=== PATIENT | male | born 1940 | race Caucasian/White ===

== ENCOUNTER 2016-05-19 13:32 | Emergency (ER) | payer MEDICARE, OTHER ==
[~2016-05-19 13:32] MED LIST: Sodium Chloride 0.9% 1,000 ML BAG ONE
[2016-05-19 14:24] LABS: Bilirubin Negative (Negative); Blood, Urine Negative (Negative); Clarity Clear (Clear); Glucose, Urine (Dipstick) Negative (Negative); Leukocyte Negative (Negative); Nitrite Negative (Negative); Protein, Urine (Dipstick) Negative (Neg-Trace); RBC/HPF None Seen HPF (0-3); Urobilinogen 0.2 mg/dL (0.2-1.0); WBC/HPF None Seen HPF (0-3); pH, Urine 5.5 (5.0-9.0)
--- NOTE | 2016-05-19 14:27 | RAD ---
CHEST 2 VIEWS: HISTORY: Cough. FINDINGS: Heart size is borderline. There is linear change in the right base which appears to represent scar. There is no focal infiltrative process noted. IMPRESSION: Borderline heart size. Linear change in the right mid lung field probably on the basis of scar. POS: [facility]
[2016-05-19 14:55] LABS: ALT (SGPT) 37 U/L (0-55); AST (SGOT) 30 U/L (5-34); Albumin 4.2 g/dL (3.4-4.8); Alkaline Phosphatase 57 U/L (40-150); Amylase 41 U/L (20-160); Anion Gap 16 mmol/L (10-20); BUN (Urea Nitrogen) 24 mg/dL (8.4-25.7); Bilirubin, Total 0.6 mg/dL (0.2-1.2); Calc. Creatinine Clearance 0 mL/min (70-130); Calcium 9.5 mg/dL (7.8-10.44); Carbon Dioxide 23 mmol/L (23-31); Chloride 100 mmol/L (98-107); Estimated GFR-MDRD 40; Glucose 63 mg/dL (83-110); Lipase 16 U/L (8-78); Potassium 4.4 mmol/L (3.5-5.1); Protein, Total 7.2 g/dL (5.8-8.1); Sodium 135 mmol/L (136-145)
[2016-05-19 15:03] LABS: Anisocytosis SLIGHT = 6-15 cells (100X) (0-5/hpf); Band 6 % (5-11); Eosinophils 6 % (0-10); Hemoglobin 15.6 g/dL (14.0-18.0); Lymphocytes 33 % (21-51); MDiff Complete? YES; Mean Corpuscular HGB CONC 33.1 g/dL (32.0-36.0); Mean Corpuscular Hemoglobin 31.8 pg (27.0-31.0); Mean Corpuscular Volume 96.2 fl (80.0-94.0); Mean Platelet Volume 10.3 fL (7.4-10.4); Monocytes 1 % (0-10); Neutrophil 50 % (42-75); PLT Morphology Comment Appears Adequate; Platelet Count 177 thou/uL (130-400); RBC Distribution Width 11.8 % (11.5-14.5); Reactive Lymphocytes 4 % (0-10); Red Blood Cell (RBC) Count 4.91 mill/uL (4.70-6.10); Vacuoles SLIGHT; White Blood Cell (WBC) Count 10.1 thou/uL (4.8-10.8)
[2016-05-19] MEDS ORDERED: AMOXicillin 250 MG CAP ONE (17:00)
[2016-05-19] MEDS ORDERED: Diphenoxylate HCl/Atropine Tablet ONE (17:00)
[2016-05-19] MEDS ORDERED: Benzonatate 100 MG CAP ONE (17:00)
--- NOTE | 2016-05-19 17:04 | ERRECORD ---
[facility] EMERGENCY RECORD HPI GENERAL (14:35 LLDO) CHIEF COMPLAINT: Patient presents for evaluation of vague and somewhat confusing history. diarrhea for 3 days but none today. epigastric burning. was taking Mylanta, which helped, but stopped taking it because it seemed to "turn on him" so he stopped and the epigastric pain is returning. has nasty cough for 2 weeks and now having right lat and post rib pain with cough. says he has a hx diverticulitis and thinks his pain might be that, but he has no lower abdo pain at all. not sure about any fever in past few days. says he mosty feels very weak and dry now, and the weakness and possible dehydration are what brought him in. HISTORIAN: History provided by patient. MECHANISM OF INJURY: Unknown mechanism, Mechanism of injury is unknown, Mechanism of injury: APPEARS INFECTIOUS, No alcohol use associated with this incident, No drug use associated with this incident, No domestic violence associated with this incident. QUALITY: Pain is dull in nature, described as aching. SEVERITY: Maximum severity of symptoms moderate, Currently symptoms are mild. TIME COURSE: Gradual onset of symptoms, Symptoms are worsening, are intermittent. ASSOCIATED WITH: No associated symptoms. EXACERBATED BY: Patient's condition exacerbated by nothing. RELIEVED BY: Patient's condition relieved by nothing. ROS CONSTITUTIONAL: Historian reports fatigue, reports malaise, reports weakness. (14:41 LLDO) EYES: Negative eye review of systems, Historian denies eye pain, denies eye redness, denies eye discharge. (14:47 LLDO) ENT: SEE HPI...DRY MOUTH. (14:41 LLDO) CARDIOVASCULAR: Negative cardiovascular review of systems, Historian denies chest pain, no radiation, Historian denies diaphoresis, denies paroxysmal nocturnal dyspnea, denies syncope. (14:47 LLDO) RESPIRATORY: Negative respiratory review of systems, Historian denies cough, denies shortness of breath, denies sputum. (14:47 LLDO) GI: Historian reports abdominal pain, denies anorexia, denies appetite changes, denies constipation, reports diarrhea, denies hematemesis, denies hematochezia, denies jaundice, denies melena, reports nausea, denies stool changes, reports vomiting. (14:41 LLDO) GENITOURINARY MALE: chronic nocturia d.t. enlarged prostrate. (14:41 LLDO) MUSCULOSKELETAL: Negative musculoskeletal review of systems, Historian denies arthralgias, denies fall, denies injury, denies myalgias. (14:47 LLDO) NEUROLOGIC: Negative neurologic review of systems, Historian &a-1R&a+25V*p+0X*[id number]*c202B*c15G*c2P*p-0X&a-25V&a+1R Name: Bharath Gamez : 1940 M76 MedRec: [id number] AcctNum: [id number] Prepared: ThuMay 19, 2016 17:35 by Interface Page 1 of 5 pMD [facility] EMERGENCY RECORD denies confusion, denies focal weakness, denies mental status changes, denies sensory changes. (14:47 LLDO) HEMO/LYMPHATIC: Normal hematologic/lymphatic system review, Historian denies abnormal blood clotting, denies gum bleeding, denies petechiae. (14:47 LLDO) ALLERGIC/IMMUNOLOGIC: Normal allergy/immunologic system review, Historian denies eczema, denies environmental allergies, denies food allergies. (14:47 LLDO) PSYCHIATRIC: Negative psychiatric review of systems, Historian denies alcohol abuse, denies anxiety, denies depression, denies drug abuse, denies hallucinations. (14:47 LLDO) NOTES: All systems reviewed, negative except as described above. (14:41 LLDO) PAST MEDICAL HISTORY MEDICAL HISTORY: Past medical history includes gastrointestinal disease, diverticulitis, GAS, Tetanus immunization up to date, Pneumococcal vaccine up to date, Past medical history includes cardiac history, coronary artery disease, valvular heart disease mitral valve prolapse, Past medical history includes history of diabetes, Type II, Past medical history includes genitourinary history, benign prostatic hypertrophy, Past medical history includes history of hyperlipidemia, high cholesterol, Past medical history includes history of hypertension, Past medical history includes renal disease, insufficiency. (ThuMay 19, 2016 13:44 JPER) MALE SURGICAL HISTORY: VERIFIED 05-19-16, L ET R KNEE MARCELO SHOULDERS BACK. (ThuMay 19, 2016 13:44 JPER) PSYCHIATRIC HISTORY: Notes: DENIES, Notes: DENIES. (ThuMay 19, 2016 13:44 JPER) SOCIAL HISTORY: Patient denies alcohol use, Patient denies drug use, Patient has no smoking history, Patient denies alcohol use, Patient denies drug use, Patient has no smoking history. (ThuMay 19, 2016 13:44 JPER) NOTES: Nursing records reviewed, Agree with nursing records, Medication list reviewed. (14:47 LLDO) KNOWN ALLERGIES CeleBREX meloxicam NAVINE (Unconfirmed) Niacin (Unconfirmed) PHENERGAN (Unconfirmed) Phenergan Plain ranitidine HCl Thiothixene (Unconfirmed) Vioxx &a-1R&a+25V*p+0X*[id number]*c202B*c15G*c2P*p-0X&a-25V&a+1R Name: Bharath Gamez : 1940 M76 MedRec: [id number] AcctNum: [id number] Prepared: ThuMay 19, 2016 17:35 by Interface Page 2 of 5 pMD [facility] EMERGENCY RECORD CURRENT MEDICATIONS aspirin: TABLET, CHEWABLE : Strength - 81 mg : ORAL Patient Dose: mg Oral once a day. (13:48 JPER) atenolol: TABLET : Strength - 25 mg : ORAL Patient Dose: Unknown. (13:48 JPER) glyBURIDE: TABLET : Strength - 5 mg : ORAL Patient Dose: Unknown. (13:48 JPER) isosorbide mononitrate: TABLET, EXTENDED RELEASE 24 HR : Strength - 120 mg : ORAL Patient Dose: 30 mg Oral once a day. (13:48 JPER) Lasix: TABLET : Strength - 40 mg : ORAL Patient Dose: 20 once a day (in the morning). (13:48 JPER) lisinopril-hydrochlorothiazide: TABLET : Strength - 20 mg-25 mg : ORAL Patient Dose: Unknown. (13:48 JPER) Protonix: TABLET, DELAYED RELEASE (ENTERIC COATED) : Strength - 40 mg : ORAL Patient Dose: once a day (in the morning). (13:48 JPER) finasteride: TABLET : Strength - 5 mg : ORAL Patient Dose: once a day (in the morning). (13:48 JPER) baclofen: TABLET : Strength - 10 mg : ORAL Patient Dose: 2 times a day. (13:49 JPER) AndroGel: GEL IN PACKET (GRAM) : Strength - 50 mg/5 gram (1 %) : TRANSDERMAL Patient Dose: once a day (in the morning). (13:49 JPER) VITAL SIGNS VITAL SIGNS: BP: 119/56, Pulse: 62, Resp: 16, Temp: 98.2 (Oral), O2 sat: 97 on Room Air, Time: 05/19/2016 13:40. (13:40 JPER) BP: 133/48, Pulse: 58, Resp: 11, O2 sat: 95 on Room Air, Time: 05/19/2016 14:30. (14:30 JPER) BP: 116/47, Pulse: 58, Resp: 15, Temp: 98.2 (Oral), O2 sat: 97 on Room Air, Time: 05/19/2016 15:00. (15:00 JPER) BP: 127/51, Pulse: 56, Resp: 18, O2 sat: 96 on Room Air, Time: 05/19/2016 15:30. (15:30 JPER) BP: 101/48, Pulse: 60, Resp: 16, Temp: 98.1 (Oral), O2 sat: 95 on Room Air, Time: 05/19/2016 16:00. (16:00 JPER) BP: 105/49, Pulse: 60, Resp: 14, O2 sat: 96 on Room Air, Time: 05/19/2016 16:30. (16:30 JPER) BP: 105/52, Pulse: 58, Resp: 14, Temp: 98.1 (Oral), O2 sat: 94 on Room Air, Time: 05/19/2016 17:00. (17:00 JPER) BP: 118/46, Pulse: 58, Resp: 16, Temp: 98.1 (Oral), O2 sat: 97 on Room Air, Time: 05/19/2016 17:10. (17:10 JPER) &a-1R&a+25V*p+0X*f0897X*c202B*c15G*c2P*p-0X&a-25V&a+1R Name: Bharath Gamez : 1940 M76 MedRec: [id number] AcctNum: [id number] Prepared: ThuMay 19, 2016 17:35 by Interface Page 3 of 5 pMD [facility] EMERGENCY RECORD PHYSICAL EXAM CONSTITUTIONAL: Vital signs reviewed, Patient afebrile, Pulse normal, Blood pressure normal, Respiratory rate normal, Patient appears, uncomfortable, Patient appears in pain, in moderate pain distress, Patient alert and oriented to person, place and time. (14:43 LLDO) HEAD: Head exam normal, Head exam included findings of head atraumatic, normocephalic. (14:47 LLDO) EYES: Eye exam normal, Eye exam included findings of eyelids normal to inspection, Pupils equally round and reactive to light, Extraocular muscles intact. (14:47 LLDO) ENT: Ear exam normal, Nose exam normal, Pharynx exam normal, Uvula exam normal, Tonsil exam normal, Mouth exam included findings of, mucous membranes dry, Sinus exam included findings of frontal sinuses normal, maxillary sinuses normal. (14:43 LLDO) NECK: Neck exam included findings of normal range of motion, Trachea midline, Thyroid normal, no meningeal signs, no cervical adenopathy, no tenderness. (14:43 LLDO) RESPIRATORY CHEST: Rales present, Chest exam included findings of chest movement symmetrical, Chest expansion equal, RALES MILD AND DIFFUSE. (14:43 LLDO) CARDIOVASCULAR: Cardiovascular exam included findings of heart rate regular rate and rhythm, Heart sounds normal. (14:43 LLDO) ABDOMEN MALE: Abdominal exam included findings of abdomen nontender, Bowel sounds normal, Liver with, Splenomegaly present, no distension, no mass, no pulsatile masses, no peritoneal signs, `. (14:43 LLDO) BACK: Back exam normal, Back exam included findings of normal inspection, range of motion normal. (14:47 LLDO) UPPER EXTREMITY: Upper extremity exam normal, Upper extremity exam included findings of inspection normal, Range of motion normal. (14:47 LLDO) LOWER EXTREMITY: Lower extremity exam normal, Lower extremity exam included findings of inspection normal, Range of motion normal. (14:47 LLDO) NEURO: Neuro exam normal, Neuro exam findings include patient oriented to person, place and time, Speech normal, Mcgrew coma scale 15. (14:47 LLDO) SKIN: Skin exam normal, Skin exam included findings of skin warm, dry, and normal in color, no rash. (14:47 LLDO) PSYCHIATRIC: Psychiatric exam normal, Psychiatric exam included findings of patient oriented to person place and time, Normal affect, Judgment normal. (14:47 LLDO) MEDICATION ADMINISTRATION SUMMARY Drug Name: Zofran intravenous, Dose Ordered: 8 mg, Route: IV Push, Status: Canceled, Time: 17:09 05/19/2016, Drug Name: Tessaljennifer Perles, Dose Ordered: 200 mg, Route: Oral, Status: Given, Time: 17:08 05/19/2016, &a-1R&a+25V*p+0X*[id number]*c202B*c15G*c2P*p-0X&a-25V&a+1R Name: Bharath Gamez : 1940 M76 MedRec: [id number] AcctNum: [id number] Prepared: ThuMay 19, 2016 17:35 by Interface Page 4 of 5 pMD [facility] EMERGENCY RECORD Drug Name: amoxicillin, Dose Ordered: 500 mg, Route: Oral, Status: Given, Time: 17:03 05/19/2016, Drug Name: Lomotil, Dose Ordered: 2 tab(s), Route: Oral, Status: Given, Time: 17:03 05/19/2016, Drug Name: *sodium chloride 0.9 % intravenous, Dose Ordered: 1 L, Route: IV Fluid Infusion, Status: Given, Time: 14:58 05/19/2016, *Additional information available in notes, Detailed record available in Medication Service section. PROBLEM LIST No recorded problems DIAGNOSIS (16:49 LLDO) FINAL: PRIMARY: Acute bronchitis, ADDITIONAL: Diarrhea - presumed infectious. PRESCRIPTION (16:52 LLDO) Lomotil: TABLET : 2.5 mg-0.025 mg : ORAL : Quantity: 1 Unit: tab(s) Route: ORAL Schedule: As Needed Dispense: 20 Unit: tab(s) May substitute. Refills: 1 . NOTES: TWO TABS INITIALLY, THEN ONE AFTER EACH LOOSE STOOL (MAX 6/24 HOURS) No Refills. Rula Rodriguez: CAPSULE (HARD, SOFT, ETC.) : 100 mg : ORAL : Quantity: 1-2 Unit: cap(s) Route: ORAL Schedule: every 6 hours PRN Dispense: 24 Unit: cap(s) May substitute. Refills: 1 . NOTES: No Refills. amoxicillin: CAPSULE (HARD, SOFT, ETC.) : 500 mg : ORAL : Quantity: 1 Unit: cap(s) Route: ORAL Schedule: 3 times a day Dispense: 30 May substitute. Refills: No Refills . NOTES: ^s=No Refills No Refills. Ultram: TABLET : 50 mg : ORAL : Quantity: 1-2 Unit: tab(s) Route: ORAL Schedule: every 4 hours prn Dispense: 24 Unit: tab(s) May substitute. Refills: 1 . NOTES: ^s=^s=No Refills No Refills No Refills. DISPOSITION PATIENT: Disposition Type: Discharge, Disposition: *Discharge Home. (16:49 WINSTON) Patient left the department. (17:32 SAM) [place]: SAM=PHILLIP Olivo, Heather MONTERO=MD Harriet, David &a-1R&a+25V*p+0X*[id number]*c202B*c15G*c2P*p-0X&a-25V&a+1R Name: FrancoBharath : 1940 M76 MedRec: [id number] AcctNum: [id number] Prepared: ThuMay 19, 2016 17:35 by Interface Page 5 of 5 pMD MTDD
--- NOTE | 2016-05-19 17:09 | PICIS ---
[facility] EMERGENCY RECORD TRIAGE (ThuMay 19, 2016 13:44 JPER) PATIENT: NAME: Bharath Gamez, AGE: 76, GENDER: male, : Thu1940, TIME OF GREET: ThuMay 19, 2016 13:33, PREFERRED LANGUAGE: Lithuanian, RACE: WHITE, ETHNICITY: Not or , ECODE BILLING MAP: [facility], SSN: [id number], Zip Code: [facility], KG WEIGHT: [phone], PHONE: CELL, , , PERSON ID: [id number], PCP: NONE. (ThuMay 19, 2016 13:44 JPER) COMPLAINT: WEAKNESS,BURNING IN STOMACH. (ThuMay 19, 2016 13:44 JPER) ADMISSION: URGENCY: 3 Urgent, ADMISSION SOURCE: Home, TRANSPORT: Walk-in, BED: ED -03. (ThuMay 19, 2016 13:44 JPER) ASSESSMENT: Assessment: PT C/O DIARRHEA X 3 DAYS; HAS BEEN HAVING 'TERRIBLE GAS' WELL PRODUCTIVE COUGH; GOT SHINGLESS VACCINE; PNEUMOVAX AND 1 UNKNOWN VACCINE POSSIBLY FLU 1 WEEK AGO TODAY. (ThuMay 19, 2016 13:44 JPER) PAIN: Location BURNING WITH DIARRHEA. (ThuMay 19, 2016 13:44 JPER) IMMUNIZATIONS: Flu vaccine up to date, Tetanus immunization up to date, Pneumococcal vaccine up to date. (ThuMay 19, 2016 13:44 JPER) SIRS SCORING: Heart Rate 55-109 (0), Temp range 96.8-101.1 (0), respiratory rate 12-24 (0), Mental Status altered: no (0). (ThuMay 19, 2016 13:44 JPER) TRIAGE SCREENING: Patient denies suicidal ideation, Patient denies presence of domestic violence. (ThuMay 19, 2016 13:44 JPER) PROVIDERS: TRIAGE NURSE: Heather Olivo RN. (ThuMay 19, 2016 13:44 JPER) VITAL SIGNS: BP 119/56, Pulse 62, Resp 16, Temp 98.2, (Oral), O2 Sat 97, on Room Air, Time 05/19/2016 13:40. (13:40 JPER) PREVIOUS VISIT ALLERGIES: CeleBREX, meloxicam, Phenergan Plain, ranitidine HCl, Vioxx. (ThuMay 19, 2016 13:44 JPER) KNOWN ALLERGIES CeleBREX meloxicam NAVINE (Unconfirmed) Niacin (Unconfirmed) PHENERGAN (Unconfirmed) Phenergan Plain ranitidine HCl Thiothixene (Unconfirmed) Vioxx CURRENT MEDICATIONS aspirin: TABLET, CHEWABLE : Strength - 81 mg : ORAL Patient Dose: mg Oral once a day. (13:48 JPER) atenolol: TABLET : Strength - 25 mg : ORAL Patient Dose: Unknown. (13:48 JPER) &a-1R&a+25V*p+0X*u9098Q*c202B*c15G*c2P*p-0X&a-25V&a+1R Name: Bharath Gamez : 1940 M76 MedRec: [id number] AcctNum: [id number] Prepared: ThuMay 19, 2016 17:39 by Interface Page 1 of 12 pMD [facility] EMERGENCY RECORD glyBURIDE: TABLET : Strength - 5 mg : ORAL Patient Dose: Unknown. (13:48 JPER) isosorbide mononitrate: TABLET, EXTENDED RELEASE 24 HR : Strength - 120 mg : ORAL Patient Dose: 30 mg Oral once a day. (13:48 JPER) Lasix: TABLET : Strength - 40 mg : ORAL Patient Dose: 20 once a day (in the morning). (13:48 JPER) lisinopril-hydrochlorothiazide: TABLET : Strength - 20 mg-25 mg : ORAL Patient Dose: Unknown. (13:48 JPER) Protonix: TABLET, DELAYED RELEASE (ENTERIC COATED) : Strength - 40 mg : ORAL Patient Dose: once a day (in the morning). (13:48 JPER) finasteride: TABLET : Strength - 5 mg : ORAL Patient Dose: once a day (in the morning). (13:48 JPER) baclofen: TABLET : Strength - 10 mg : ORAL Patient Dose: 2 times a day. (13:49 JPER) AndroGel: GEL IN PACKET (GRAM) : Strength - 50 mg/5 gram (1 %) : TRANSDERMAL Patient Dose: once a day (in the morning). (13:49 JPER) VITAL SIGNS VITAL SIGNS: BP: 119/56, Pulse: 62, Resp: 16, Temp: 98.2 (Oral), O2 sat: 97 on Room Air, Time: 05/19/2016 13:40. (13:40 JPER) BP: 133/48, Pulse: 58, Resp: 11, O2 sat: 95 on Room Air, Time: 05/19/2016 14:30. (14:30 JPER) BP: 116/47, Pulse: 58, Resp: 15, Temp: 98.2 (Oral), O2 sat: 97 on Room Air, Time: 05/19/2016 15:00. (15:00 JPER) BP: 127/51, Pulse: 56, Resp: 18, O2 sat: 96 on Room Air, Time: 05/19/2016 15:30. (15:30 JPER) BP: 101/48, Pulse: 60, Resp: 16, Temp: 98.1 (Oral), O2 sat: 95 on Room Air, Time: 05/19/2016 16:00. (16:00 JPER) BP: 105/49, Pulse: 60, Resp: 14, O2 sat: 96 on Room Air, Time: 05/19/2016 16:30. (16:30 JPER) BP: 105/52, Pulse: 58, Resp: 14, Temp: 98.1 (Oral), O2 sat: 94 on Room Air, Time: 05/19/2016 17:00. (17:00 JPER) BP: 118/46, Pulse: 58, Resp: 16, Temp: 98.1 (Oral), O2 sat: 97 on Room Air, Time: 05/19/2016 17:10. (17:10 JPER) NURSING ASSESSMENT: ABDOMEN (13:54 JPER) CONSTITUTIONAL: Patient arrives ambulatory, Gait steady, History obtained from patient, Patient appears comfortable, Patient cooperative, Patient alert, Oriented to person, place and time, Skin warm, Skin dry, Skin normal in color, Mucous membranes pink, Mucous membranes moist, Patient complains of DIARRHEA X 3 DAYS. PAIN: SEVERE GAS. &a-1R&a+25V*p+0X*h1201F*c202B*c15G*c2P*p-0X&a-25V&a+1R Name: Bharath Gamez : 1940 M76 MedRec: [id number] AcctNum: [id number] Prepared: ThuMay 19, 2016 17:39 by Interface Page 2 of 12 pMD [facility] EMERGENCY RECORD ABDOMEN: Abdomen soft, Notes: HX OF DIVERTICULITIS. GENITOURINARY MALE: Notes: DEFERRED; UA REQUESTED. NOTES: Emotional support needed and given. NURSING PROCEDURE: FACILITY SPECIALIST (14:34 JPER) PATIENT IDENTIFIER: Patient's identity verified by patient stating name, Patient's identity verified by hospital ID bracelet. FACILITY SPECIALIST: Cardiac monitoring indicated for DIARRHEA X 3 DAYS, Patient placed on learning and development officer, Heart rate: 62, Patient placed on non-invasive blood pressure monitor, Patient placed on continuous pulse oximetry, Adult/pediatric oxisensor applied, Oxygen saturation 98%. FOLLOW-UP: After procedure, alarms set and on, After procedure, patient tolerating monitoring. NOTES: Emotional support needed and given. NURSING PROCEDURE: DISCHARGE NOTE (17:13 JPER) DISCHARGE: Patient discharged to home, ambulating without assistance, family driving, accompanied by //partner, Summary of Care printed/ provided, Patient requested and was provided an electronic copy of Discharge Instructions, Transition record given to patient, Discharge instructions given to patient, Prescriptions given and instructions on side effects given, Above person(s) verbalized understanding of discharge instructions and follow-up care, Patient treated and evaluated by physician. BELONGINGS: Belongings remain with patient, Valuables remain with patient. NOTES: Emotional support needed and given, Patient tolerated procedure well. NURSING PROCEDURE: IV (14:34 JPER) PATIENT IDENITIFIER: Patient's identity verified by patient stating name, Patient's identity verified by hospital ID bracelet. IV SITE 1: IV therapy indicated for hydration, IV therapy indicated for medication administration, IV therapy indicated for LAB DRAW, IV established, to the right antecubital, using a 20 gauge catheter, in one attempt, IV site prepped with CHLOROPREP, Saline lock established, Labs drawn at time of placement, labeled in the presence of the patient and sent to lab. FOLLOW-UP SITE 1: After procedure, sterile transparent dressing applied. NURSING PROCEDURE: NURSE NOTES (17:05 AWAT) NURSES NOTES: Notes: IV REMOVED FROM RIGHT AC WITH 100% ANGIOCATH INTACT... PRESSURE HELD FOR 1 MINUTE, HEMOSTASIS OBTAINES... ORDER DETAILS Order Name: Amylase, Status: Active, Time: 14:06 05/19/2016, User: &a-1R&a+25V*p+0X*n3547Q*c202B*c15G*c2P*p-0X&a-25V&a+1R Name: Bharath Gamez : 1940 M76 MedRec: [id number] AcctNum: [id number] Prepared: ThuMay 19, 2016 17:39 by Interface Page 3 of 12 pMD [facility] EM[facility]GENCY RECORD [facility], - Ordered for: MD Larios Lloyd, - Entered by: MD Larios Lloyd - ThuMay 19, 2016 14:06, - Quantity: 1, Order Name: B type Natriuretic Peptide, Status: Active, Time: 14:07 05/19/2016, User: WINSTON, - Ordered for: MD Larios Lloyd, - Entered by: MD Larios Lloyd - ThuMay 19, 2016 14:07, - Quantity: 1, Order Name: FACILITY SPECIALIST ED, Status: Done, Time: 14:33 05/19/2016, User: SAM, - Ordered for: MD Larios Lloyd, - Entered by: MD Larios Lloyd - ThuMay 19, 2016 14:06, - Quantity: 1, Order Name: CBC with Differential, Status: Active, Time: 14:06 05/19/2016, User: LL, - Ordered for: MD Larios Lloyd, - Entered by: MD Larios Lloyd - ThuMay 19, 2016 14:06, - Quantity: 1, Order Name: Comprehensive Metabolic Panel, Status: Active, Time: 14:06 05/19/2016, User: WINSTON, - Ordered for: MD Larios Lloyd, - Entered by: MD Larios Lloyd - ThuMay 19, 2016 14:06, - Quantity: 1, Order Name: Culture, Urine, Status: Active, Time: 14:06 05/19/2016, User: WINSTON, - Ordered for: MD Larios Lloyd, - Entered by: MD Larios Lloyd - ThuMay 19, 2016 14:06, - Quantity: 1, Order Name: Lactic Acid with repeat, Status: Active, Time: 14:08 05/19/2016, User: WINSTON, - Ordered for: MD Larios Lloyd, - Entered by: MD Larios Lloyd - [facility] May 19, 2016 14:08, - Quantity: 1, Order Name: Lipase, Status: Active, Time: 14:06 05/19/2016, User: WINSTON, - Ordered for: MD Larios Lloyd, - Entered by: MD Larios Lloyd - [facility] May 19, 2016 14:06, - Quantity: 1, Order Name: SALINE LOCK, Status: Done, Time: 14:33 05/19/2016, User: SAM, - Ordered for: MD Larios Lloyd, - Entered by: MD Larios Lloyd - [facility] May 19, 2016 14:06, - Quantity: 1, Order Name: Urinalysis with Microscopic, Status: Active, Time: 14:06 05/19/2016, User: WINSTON, - Ordered for: MD Larios Lloyd, - Entered by: MD Larios Lloyd - [facility] May 19, 2016 14:06, - Quantity: 1, Order Name: XR Chest Pa & Lat STANDARD, Status: Active, Time: 14:06 05/19/2016, User: WINSTON, &a-1R&a+25V*p+0X*i9372N*c202B*c15G*c2P*p-0X&a-25V&a+1R Name: Bharath Gamez : 1940 M76 MedRec: [id number] AcctNum: [id number] Prepared: ThuMay 19, 2016 17:39 by Interface Page 4 of 12 pMD [facility] EMERGENCY RECORD - Ordered for: MD Larios Lloyd, - Entered by: MD Larios Lloyd - [facility] May 19, 2016 14:06, - Quantity: 1. MEDICATION ADMINISTRATION SUMMARY Drug Name: Zofran intravenous, Dose Ordered: 8 mg, Route: IV Push, Status: Canceled, Time: 17:09 05/19/2016, Drug Name: Rula Perles, Dose Ordered: 200 mg, Route: Oral, Status: Given, Time: 17:08 05/19/2016, Drug Name: amoxicillin, Dose Ordered: 500 mg, Route: Oral, Status: Given, Time: 17:03 05/19/2016, Drug Name: Lomotil, Dose Ordered: 2 tab(s), Route: Oral, Status: Given, Time: 17:03 05/19/2016, Drug Name: *sodium chloride 0.9 % intravenous, Dose Ordered: 1 L, Route: IV Fluid Infusion, Status: Given, Time: 14:58 05/19/2016, *Additional information available in notes, Detailed record available in Medication Service section. MEDICATION SERVICE amoxicillin: Order: amoxicillin (amoxicillin trihydrate) - Dose: 500 mg : Oral Schedule: Now Ordered by: David Larios MD Entered by: David Larios MD ThuMay 19, 2016 16:49 , Acknowledged by: Ladarius Valenzuela RN ThuMay 19, 2016 16:57 Documented as given by: Ladarius Valenzuela RN ThuMay 19, 2016 17:03 Patient, Medication, Dose, Route and Time verified prior to administration. Amount given: 500MG, Site: Medication administered P.O., Correct patient, time, route, dose and medication confirmed prior to administration, Patient advised of actions and side-effects prior to administration, Allergies confirmed and medications reviewed prior to administration, Administered by JUNG RN, Patient in position of comfort, Side rails up, Cart in lowest position, Family at bedside. Lomotil: Order: Lomotil (diphenoxylate HCl/atropine sulfate) - Dose: 2 tab(s) : Oral Schedule: Now Ordered by: David Larios MD Entered by: David Larios MD ThuMay 19, 2016 16:50 , Acknowledged by: Ladarius Valenzuela RN ThuMay 19, 2016 16:57 Documented as given by: Ladarius Valenzuela RN ThuMay 19, 2016 17:03 Patient, Medication, Dose, Route and Time verified prior to administration. Amount given: 2TABS, Site: Medication administered P.O., Correct patient, time, route, dose and medication confirmed prior to administration, Patient advised of actions and side-effects prior to administration, Allergies confirmed and medications reviewed prior to administration, Administered by JUNG RN, Patient in position of comfort, Side rails up, Cart in lowest position, Family at bedside. &a-1R&a+25V*p+0X*j7737P*c202B*c15G*c2P*p-0X&a-25V&a+1R Name: Bharath Gamez : 1940 M76 MedRec: [id number] AcctNum: [id number] Prepared: ThuMay 19, 2016 17:39 by Interface Page 5 of 12 pMD [facility] EMERGENCY RECORD sodium chloride 0.9 % intravenous: Order: sodium chloride 0.9 % intravenous (0.9 % sodium chloride) - Dose: 1 L : IV Fluid Infusion Notes: (Bolus) after bolus, lock Ordered by: David Larios MD Entered by: David Larios MD ThuMay 19, 2016 14:51 Documented as given by: Heather Olivo RN ThuMay 19, 2016 14:58 Patient, Medication, Dose, Route and Time verified prior to administration. Amount given: 1000ML, IV SITE #1 IV fluids established for hydration, IV SITE #1 into right antecubital, IV SITE #1 1st bag hung, amount 1 Liter hung, IV SITE #1 bolus of 1000 ml established, IV SITE #1 Rate of bolus, wide open, via primary tubing, Catheter placement confirmed via flush prior to administration, IV site without signs or symptoms of infiltration during medication administration, No swelling during administration, No drainage during administration, IV flushed after administration, Correct patient, time, route, dose and medication confirmed prior to administration, Patient advised of actions and side-effects prior to administration, Allergies confirmed and medications reviewed prior to administration, Administered by ILIANA FISHER. : Follow Up : _IV SITE #1:_, IV fluid infusion discontinued, on ThuMay 19, 2016 17:10, Total fluid hydration time IV site 1 2 hours, 15 minutes, ., Total amount infused: 1000ML, IV Discontinued with catheter intact. (17:10 JPER) Tessalon Perles: Order: Tessalon Perles (benzonatate) - Dose: 200 mg : Oral Schedule: Now Ordered by: David Larios MD Entered by: David Larios MD ThuMay 19, 2016 16:49 , Acknowledged by: Ladarius Valenzuela RN ThuMay 19, 2016 16:58 Documented as given by: Ladarius Valenzuela RN ThuMay 19, 2016 17:08 Patient, Medication, Dose, Route and Time verified prior to administration. Amount given: 200MG, Site: Medication administered P.O., Correct patient, time, route, dose and medication confirmed prior to administration, Patient advised of actions and side-effects prior to administration, Allergies confirmed and medications reviewed prior to administration, Administered by JUNG FISHER, Patient in position of comfort, Side rails up, Cart in lowest position, Family at bedside. Zofran intravenous: Order: Zofran intravenous (ondansetron HCl) - Dose: 8 mg : IV Push Schedule: Now Ordered by: David Larios MD Entered by: David Larios MD ThuMay 19, 2016 14:10 , Held by: Heather Olivo RN ThuMay 19, 2016 14:35 Reason: Patient refused:SAYS HE IS NOT NAUSEATED. (CANCELED) Zofran intravenous: Originally ordered ThuMay 19, 2016 14:10 Cancel reason: Patient refused. (17:09 AWAT) &a-1R&a+25V*p+0X*a1149A*c202B*c15G*c2P*p-0X&a-25V&a+1R Name: Bharath Gamez Gaby : 1940 M76 MedRec: [id number] AcctNum: [id number] Prepared: ThuMay 19, 2016 17:39 by Interface Page 6 of 12 pMD [facility] EMERGENCY RECORD HPI GENERAL (14:35 LLDO) CHIEF COMPLAINT: Patient presents for evaluation of vague and somewhat confusing history. diarrhea for 3 days but none today. epigastric burning. was taking Mylanta, which helped, but stopped taking it because it seemed to "turn on him" so he stopped and the epigastric pain is returning. has nasty cough for 2 weeks and now having right lat and post rib pain with cough. says he has a hx diverticulitis and thinks his pain might be that, but he has no lower abdo pain at all. not sure about any fever in past few days. says he mosty feels very weak and dry now, and the weakness and possible dehydration are what brought him in. HISTORIAN: History provided by patient. MECHANISM OF INJURY: Unknown mechanism, Mechanism of injury is unknown, Mechanism of injury: APPEARS INFECTIOUS, No alcohol use associated with this incident, No drug use associated with this incident, No domestic violence associated with this incident. QUALITY: Pain is dull in nature, described as aching. SEVERITY: Maximum severity of symptoms moderate, Currently symptoms are mild. TIME COURSE: Gradual onset of symptoms, Symptoms are worsening, are intermittent. ASSOCIATED WITH: No associated symptoms. EXACERBATED BY: Patient's condition exacerbated by nothing. RELIEVED BY: Patient's condition relieved by nothing. ROS CONSTITUTIONAL: Historian reports fatigue, reports malaise, reports weakness. (14:41 LLDO) EYES: Negative eye review of systems, Historian denies eye pain, denies eye redness, denies eye discharge. (14:47 LLDO) ENT: SEE HPI...DRY MOUTH. (14:41 LLDO) CARDIOVASCULAR: Negative cardiovascular review of systems, Historian denies chest pain, no radiation, Historian denies diaphoresis, denies paroxysmal nocturnal dyspnea, denies syncope. (14:47 LLDO) RESPIRATORY: Negative respiratory review of systems, Historian denies cough, denies shortness of breath, denies sputum. (14:47 LLDO) GI: Historian reports abdominal pain, denies anorexia, denies appetite changes, denies constipation, reports diarrhea, denies hematemesis, denies hematochezia, denies jaundice, denies melena, reports nausea, denies stool changes, reports vomiting. (14:41 LLDO) GENITOURINARY MALE: chronic nocturia d.t. enlarged prostrate. (14:41 LLDO) MUSCULOSKELETAL: Negative musculoskeletal review of systems, Historian denies arthralgias, denies fall, denies injury, denies myalgias. (14:47 LLDO) &a-1R&a+25V*p+0X*m6390A*c202B*c15G*c2P*p-0X&a-25V&a+1R Name: Bharath Gamez : 1940 M76 MedRec: [id number] AcctNum: [id number] Prepared: ThuMay 19, 2016 17:39 by Interface Page 7 of 12 pMD [facility] EMERGENCY RECORD NEUROLOGIC: Negative neurologic review of systems, Historian denies confusion, denies focal weakness, denies mental status changes, denies sensory changes. (14:47 LLDO) HEMO/LYMPHATIC: Normal hematologic/lymphatic system review, Historian denies abnormal blood clotting, denies gum bleeding, denies petechiae. (14:47 LLDO) ALLERGIC/IMMUNOLOGIC: Normal allergy/immunologic system review, Historian denies eczema, denies environmental allergies, denies food allergies. (14:47 LLDO) PSYCHIATRIC: Negative psychiatric review of systems, Historian denies alcohol abuse, denies anxiety, denies depression, denies drug abuse, denies hallucinations. (14:47 LLDO) NOTES: All systems reviewed, negative except as described above. (14:41 LLDO) PAST MEDICAL HISTORY MEDICAL HISTORY: Past medical history includes gastrointestinal disease, diverticulitis, GAS, Tetanus immunization up to date, Pneumococcal vaccine up to date, Past medical history includes cardiac history, coronary artery disease, valvular heart disease mitral valve prolapse, Past medical history includes history of diabetes, Type II, Past medical history includes genitourinary history, benign prostatic hypertrophy, Past medical history includes history of hyperlipidemia, high cholesterol, Past medical history includes history of hypertension, Past medical history includes renal disease, insufficiency. (ThuMay 19, 2016 13:44 JPER) MALE SURGICAL HISTORY: VERIFIED 05-19-16, L ET R KNEE MARCELO SHOULDERS BACK. (ThuMay 19, 2016 13:44 JPER) PSYCHIATRIC HISTORY: Notes: DENIES, Notes: DENIES. (ThuMay 19, 2016 13:44 JPER) SOCIAL HISTORY: Patient denies alcohol use, Patient denies drug use, Patient has no smoking history, Patient denies alcohol use, Patient denies drug use, Patient has no smoking history. (ThuMay 19, 2016 13:44 JPER) NOTES: Nursing records reviewed, Agree with nursing records, Medication list reviewed. (14:47 LLDO) PHYSICAL EXAM CONSTITUTIONAL: Vital signs reviewed, Patient afebrile, Pulse normal, Blood pressure normal, Respiratory rate normal, Patient appears, uncomfortable, Patient appears in pain, in moderate pain distress, Patient alert and oriented to person, place and time. (14:43 LLDO) HEAD: Head exam normal, Head exam included findings of head atraumatic, normocephalic. (14:47 LLDO) EYES: Eye exam normal, Eye exam included findings of eyelids normal to inspection, Pupils equally round and reactive to light, &a-1R&a+25V*p+0X*v0088S*c202B*c15G*c2P*p-0X&a-25V&a+1R Name: Bharath Gamez : 1940 M76 MedRec: [id number] AcctNum: [id number] Prepared: ThuMay 19, 2016 17:39 by Interface Page 8 of 12 pMD [facility] EMERGENCY RECORD Extraocular muscles intact. (14:47 LLDO) ENT: Ear exam normal, Nose exam normal, Pharynx exam normal, Uvula exam normal, Tonsil exam normal, Mouth exam included findings of, mucous membranes dry, Sinus exam included findings of frontal sinuses normal, maxillary sinuses normal. (14:43 LLDO) NECK: Neck exam included findings of normal range of motion, Trachea midline, Thyroid normal, no meningeal signs, no cervical adenopathy, no tenderness. (14:43 LLDO) RESPIRATORY CHEST: Rales present, Chest exam included findings of chest movement symmetrical, Chest expansion equal, RALES MILD AND DIFFUSE. (14:43 LLDO) CARDIOVASCULAR: Cardiovascular exam included findings of heart rate regular rate and rhythm, Heart sounds normal. (14:43 LLDO) ABDOMEN MALE: Abdominal exam included findings of abdomen nontender, Bowel sounds normal, Liver with, Splenomegaly present, no distension, no mass, no pulsatile masses, no peritoneal signs, `. (14:43 LLDO) BACK: Back exam normal, Back exam included findings of normal inspection, range of motion normal. (14:47 LLDO) UPPER EXTREMITY: Upper extremity exam normal, Upper extremity exam included findings of inspection normal, Range of motion normal. (14:47 LLDO) LOWER EXTREMITY: Lower extremity exam normal, Lower extremity exam included findings of inspection normal, Range of motion normal. (14:47 LLDO) NEURO: Neuro exam normal, Neuro exam findings include patient oriented to person, place and time, Speech normal, Dwayne coma scale 15. (14:47 LLDO) SKIN: Skin exam normal, Skin exam included findings of skin warm, dry, and normal in color, no rash. (14:47 LLDO) PSYCHIATRIC: Psychiatric exam normal, Psychiatric exam included findings of patient oriented to person place and time, Normal affect, Judgment normal. (14:47 LLDO) EVENTS TRANSFER: Triage to Emergency Main ED -03. (Mon May 19, 2016 13:44 JPER) Emergency Main ED -03 to Holding. (17:14 AWAT) Removed from Emergency Holding. (17:32 JPER) PROBLEM LIST No recorded problems DIAGNOSIS (16:49 LLDO) FINAL: PRIMARY: Acute bronchitis, ADDITIONAL: Diarrhea - presumed infectious. DISPOSITION PATIENT: Disposition Type: Discharge, Disposition: *Discharge Home. (16:49 LLDO) &a-1R&a+25V*p+0X*e4045E*c202B*c15G*c2P*p-0X&a-25V&a+1R Name: Bharath Gamez : 1940 M76 MedRec: [id number] AcctNum: [id number] Prepared: ThuMay 19, 2016 17:39 by Interface Page 9 of 12 pMD [facility] EMERGENCY RECORD Patient left the department. (17:32 JPER) INSTRUCTION (16:54 LLDO) DISCHARGE: BRONCHITIS, ABX TX (ADULT), DIARRHEA VOMIT VIRAL 6YADULT, CLEAR LIQUID DIET, BRAT DIET EXPANDED CHILD. FOLLOWUP: Follow up with Primary Care Physician in 5 days. SPECIAL: Follow-up with your PCP. PRESCRIPTION (16:52 LLDO) Lomotil: TABLET : 2.5 mg-0.025 mg : ORAL : Quantity: 1 Unit: tab(s) Route: ORAL Schedule: As Needed Dispense: 20 Unit: tab(s) May substitute. Refills: 1 . NOTES: TWO TABS INITIALLY, THEN ONE AFTER EACH LOOSE STOOL (MAX 6/24 HOURS) No Refills. Tessalon Perles: CAPSULE (HARD, SOFT, ETC.) : 100 mg : ORAL : Quantity: 1-2 Unit: cap(s) Route: ORAL Schedule: every 6 hours PRN Dispense: 24 Unit: cap(s) May substitute. Refills: 1 . NOTES: No Refills. amoxicillin: CAPSULE (HARD, SOFT, ETC.) : 500 mg : ORAL : Quantity: 1 Unit: cap(s) Route: ORAL Schedule: 3 times a day Dispense: 30 May substitute. Refills: No Refills . NOTES: ^s=No Refills No Refills. Ultram: TABLET : 50 mg : ORAL : Quantity: 1-2 Unit: tab(s) Route: ORAL Schedule: every 4 hours prn Dispense: 24 Unit: tab(s) May substitute. Refills: 1 . NOTES: ^s=^s=No Refills No Refills No Refills. IMAGING *DISCHARGE INSTRUCTIONS RECEIPT: Image captured from scanner. (17:31 JPER) *SUPPLY CHARGE SHEET: Image captured from scanner. (17:32 JPER) ADMIN DIGITAL SIGNATURE: MD Harriet, David. (16:54 LLDO) PHILLIP Olivo, Heather. (17:34 JPER) RESULTS (15:09 THIAGO) LABORATORY: B type Natriuretic Peptide Collection DT: ThuMay 19, 2016 14:34, B type Natriuretic Peptide 10.8 pg/mL, Range (0-100). CBC with Differential Collection DT: ThuMay 19, 2016 14:34, White Blood Cell (WBC) Count 10.1 thou/uL, Range (4.8-10.8), &a-1R&a+25V*p+0X*[id number]*c202B*c15G*c2P*p-0X&a-25V&a+1R Name: Bharath Gamez : 1940 M76 MedRec: [id number] AcctNum: [id number] Prepared: ThuMay 19, 2016 17:39 by Interface Page 10 of 12 pMD [facility] EMERGENCY RECORD Red Blood Cell (RBC) Count 4.91 mill/uL, Range (4.70-6.10), Hemoglobin 15.6 g/dL, Range (14.0-18.0), Hematocrit 47.2 %, Range (42.0-52.0), *Mean Corpuscular Volume 96.2 - H fl, Range (80.0-94.0), *Mean Corpuscular Hemoglobin 31.8 - H pg, Range (27.0-31.0), Mean Corpuscular HGB CONC 33.1 g/dL, Range (32.0-36.0), RBC Distribution Width 11.8 %, Range (11.5-14.5), Platelet Count 177 thou/uL, Range (130-400), Mean Platelet Volume 10.3 fL, Range (7.4-10.4), Neutrophil 50 %, Range (42-75), Band 6 %, Range (5-11), Lymphocytes 33 %, Range (21-51), Reactive Lymphocytes 4 %, Range (0-10), Monocytes 1 %, Range (0-10), Eosinophils 6 %, Range (0-10), Anisocytosis SLIGHT = 6-15 cells (100X), Range (0-5/hpf), Vacuoles SLIGHT , PLT Morphology Comment Appears Adequate . Lipase Collection DT: ThuMay 19, 2016 14:34, Lipase 16 U/L, Range (8-78). Amylase Collection DT: ThuMay 19, 2016 14:34, Amylase 41 U/L, Range (20-160). Comprehensive Metabolic Panel Collection DT: ThuMay 19, 2016 14:34, *Sodium 135 - L mmol/L, Range (136-145), Potassium 4.4 mmol/L, Range (3.5-5.1), Chloride 100 mmol/L, Range (98-107), Carbon Dioxide 23 mmol/L, Range (23-31), Anion Gap 16 mmol/L, Range (10-20), BUN (Urea Nitrogen) 24 mg/dL, Range (8.4-25.7), *Creatinine 1.66 - H mg/dL, Range (0.7-1.3), Estimated GFR-MDRD 40 , Reference Range for Estimated GFR: Greater than 90, mL/min/1.73 m2 NOTE: The MDRD equation has not been validated for use, with the elderly (over 70 years of age), women, patients with, serious comorbid condition or persons with extremes of body size, muscle, mass, or nutritional status. , *Glucose 63 - L mg/dL, Range (83-110), Calcium 9.5 mg/dL, Range (7.8-10.44), Bilirubin, Total 0.6 mg/dL, Range (0.2-1.2), Protein, Total 7.2 g/dL, Range (5.8-8.1), NOTE: Plasma values are generally 0.3 to 0.5 g/dL higher than serum values, due to the presence of fibrinogen. , Albumin 4.2 g/dL, Range (3.4-4.8), Globulin 3.0 g/dL, Range (2.4-3.5), Alb/Glob Ratio 1.4 g/dL, Range (1.2-2.2), Alkaline Phosphatase 57 U/L, Range (40-150), AST (SGOT) 30 U/L, Range (5-34), &a-1R&a+25V*p+0X*[id number]*c202B*c15G*c2P*p-0X&a-25V&a+1R Name: Bharath Gamez : 1940 M76 MedRec: [id number] AcctNum: [id number] Prepared: ThuMay 19, 2016 17:39 by Interface Page 11 of 12 pMD [facility] EMERGENCY RECORD ALT (SGPT) 37 U/L, Range (0-55). Lactic Acid for Sepsis Collection DT: ThuMay 19, 2016 14:34, Lactic Acid - Sepsis 1.2 mmol/L, Range (0.5-2.2). Urinalysis with Microscopic Collection DT: ThuMay 19, 2016 14:18, Color Yellow , Range (Yellow), Clarity Clear , Range (Clear), Specific [place], Urine 1.020 , Range (1.005-1.030), pH, Urine 5.5 , Range (5.0-9.0), Leukocyte Negative , Range (Negative), Nitrite Negative , Range (Negative), Protein, Urine (Dipstick) Negative mg/dL, Range (Neg-Trace), Glucose, Urine (Dipstick) Negative mg/dL, Range (Negative), Ketone, Urine Negative mg/dL, Range (Negative), Urobilinogen 0.2 mg/dL, Range (0.2-1.0), Bilirubin Negative , Range (Negative), Blood, Urine Negative , Range (Negative), RBC/HPF None Seen HPF, Range (0-3), WBC/HPF None Seen HPF, Range (0-3). [place]: AUDREY=PHILLIP Valenzuela, Ladarius MERLOSER=PHILLIP Olivo, Heather MONTERO=MD HarrietDavid=PHILLIP Patel, Allison &a-1R&a+25V*p+0X*[id number]*c202B*c15G*c2P*p-0X&a-25V&a+1R Name: Bharath Gamez : 1940 76 MedRec: [id number] AcctNum: [id number] Prepared: ThuMay 19, 2016 17:39 by Interface Page 12 of 12 pMD [facility] MEDICATION RECONCILIATION You were seen in the Emergency Department on: ThuMay 19, 2016 KNOWN ALLERGIES CeleBREX meloxicam NAVINE (Unconfirmed) Niacin (Unconfirmed) PHENERGAN (Unconfirmed) Phenergan Plain ranitidine HCl Thiothixene (Unconfirmed) Vioxx MEDICATIONS GIVEN WHILE IN THE EMERGENCY DEPARTMENT sodium chloride 0.9 % intravenous (0.9 % sodium chloride) - Dose: 1 liter(s) : IV Fluid Infusion amoxicillin (amoxicillin trihydrate) - Dose: 500 milligram(s) : Oral Tessalon Perles (benzonatate) - Dose: 200 milligram(s) : Oral Lomotil (diphenoxylate HCl/atropine sulfate) - Dose: 2 tab(s) : Oral HOME MEDICATIONS CONTINUE PRESCRIBED AndroGel : GEL IN PACKET (GRAM) : Strength - 50 mg/5 gram (1 %) : TRANSDERMAL Continue as prescribed Patient had been taking: once a day (in the morning). aspirin : TABLET, CHEWABLE : Strength - 81 mg : ORAL Continue as prescribed Patient had been taking: mg Oral once a day. atenolol : TABLET : Strength - 25 mg : ORAL Continue as prescribed Patient had been taking: Dose unknown baclofen : TABLET : Strength - 10 mg : ORAL Continue as prescribed Patient had been takin times a day. finasteride : TABLET : Strength - 5 mg : ORAL Continue as prescribed Patient had been taking: once a day (in the morning). &a-1R&a+25V*p+0X*[id number]*c202B*c15G*c2P*p-0X&a-25V&a+1R Name: Bharath Gamez : 1940 M76 MedRec: [id number] AcctNum: [id number] Prepared: ThuMay 19, 2016 17:39 by Interface pMD [facility] MEDICATION RECONCILIATION glyBURIDE : TABLET : Strength - 5 mg : ORAL Continue as prescribed Patient had been taking: Dose unknown isosorbide mononitrate : TABLET, EXTENDED RELEASE 24 HR : Strength - 120 mg : ORAL Continue as prescribed Patient had been takin mg Oral once a day. Lasix : TABLET : Strength - 40 mg : ORAL Continue as prescribed Patient had been takin once a day (in the morning). lisinopril-hydrochlorothiazide : TABLET : Strength - 20 mg-25 mg : ORAL Continue as prescribed Patient had been taking: Dose unknown Protonix : TABLET, DELAYED RELEASE (ENTERIC COATED) : Strength - 40 mg : ORAL Continue as prescribed Patient had been taking: once a day (in the morning). Notes from the emergency department Reviewed with family Reviewed with patient PRESCRIPTIONS (4) Printed (4) Lomotil : TABLET : 2.5 mg-0.025 mg : ORAL Quantity: 1, Unit: tab(s), Route: ORAL, Schedule: As Needed, Dispense: 20 Unit: tab(s) Tessalon Perles : CAPSULE (HARD, SOFT, ETC.) : 100 mg : ORAL Quantity: 1-2, Unit: cap(s), Route: ORAL, Schedule: every 6 hours PRN, Dispense: 24 Unit: cap(s) amoxicillin : CAPSULE (HARD, SOFT, ETC.) : 500 mg : ORAL Quantity: 1, Unit: cap(s), Route: ORAL, Schedule: 3 times a day, Dispense: 30 &a-1R&a+25V*p+0X*[id number]*c202B*c15G*c2P*p-0X&a-25V&a+1R Name: Wapello, Bharath Griffin : 1940 M76 MedRec: [id number] AcctNum: [id number] Prepared: ThuMay 19, 2016 17:39 by Interface pMD CON[facility]
== END 2016-05-19 17:13 | disposition home or self-care (01) ==
LOC: MADERS 13:32
DX: J20.9 Acute bronchitis, unspecified (principal); R19.7 Diarrhea, unspecified; I25.10 Atherosclerotic heart disease of native coronary artery without angina pectoris; I10 Essential (primary) hypertension; E11.9 Type 2 diabetes mellitus without complications; E78.00 Pure hypercholesterolemia, unspecified; E78.5 Hyperlipidemia, unspecified; Z79.82 Long term (current) use of aspirin; Z79.84 Long term (current) use of oral hypoglycemic drugs; Z79.899 Other long term (current) drug therapy
CPT/HCPCS: 36415; 71020; 80053; 81001; 82150; 83605; 83690; 83880; 85025; 87086; 96360; 96361; J7050

== ENCOUNTER 2016-05-23 21:23 | Emergency (ER) | payer MEDICARE, OTHER ==
--- NOTE | 2016-05-23 22:19 | RAD ---
PORTABLE AP CHEST X-RAY 05/23/16 HISTORY: Excessive belching, epigastric pain. FINDINGS: Compared to study on 05/19/16. There is minimal linear scarring in the right mid lung zone. The lungs are otherwise clear. Cardiac silhouette is magnified by projection. Pulmonary vasculature is within normal limits. No other inter sravanthi change. IMPRESSION: No acute cardiopulmonary process. POS: [facility]
[2016-05-23 22:49] LABS: ALT (SGPT) 36 U/L (0-55); AST (SGOT) 31 U/L (5-34); Albumin 4.2 g/dL (3.4-4.8); Alkaline Phosphatase 57 U/L (40-150); Anion Gap 17 mmol/L (10-20); BUN (Urea Nitrogen) 15 mg/dL (8.4-25.7); Bilirubin, Total 0.7 mg/dL (0.2-1.2); Calc. Creatinine Clearance 0 mL/min (70-130); Calcium 9.2 mg/dL (7.8-10.44); Carbon Dioxide 21 mmol/L (23-31); Chloride 98 mmol/L (98-107); Estimated GFR-MDRD 45; Glucose 116 mg/dL (83-110); Potassium 4.3 mmol/L (3.5-5.1); Protein, Total 7.2 g/dL (5.8-8.1); Sodium 132 mmol/L (136-145)
[2016-05-23 22:56] LABS: #Basophils 0.1 thou/uL (0.0-0.2); #Eosinphils 0.1 thou/uL (0.0-0.7); #Monocytes 0.6 thou/uL (0.11-0.59); #Neutrophils 5.1 thou/uL (1.40-6.50); %Basophils 0.8 % (0.0-1.0); %Eosinophils 0.9 % (0.0-10.0); %Lymphocytes 28.4 % (21.0-51.0); %Monocytes 7.3 % (0.0-10.0); %Neutrophils 62.6 % (42.0-75.0); Hemoglobin 15.7 g/dL (14.0-18.0); Mean Corpuscular Hemoglobin 32.2 pg (27.0-31.0); Mean Corpuscular Volume 94.6 fl (80.0-94.0); Mean Platelet Volume 10.3 fL (7.4-10.4); Platelet Count 180 thou/uL (130-400); Red Blood Cell (RBC) Count 4.86 mill/uL (4.70-6.10); Troponin I Less than 0.010 ng/mL (< 0.028); White Blood Cell (WBC) Count 8.2 thou/uL (4.8-10.8)
[2016-05-23 22:57] LABS: MDiff Complete? YES
[2016-05-23 22:58] LABS: Lymphocytes 31 % (21-51); Monocytes 4 % (0-10); Neutrophil 65 % (42-75)
[2016-05-23 23:00] LABS: Bilirubin Negative (Negative); Blood, Urine Negative (Negative); Clarity Clear (Clear); Glucose, Urine (Dipstick) Negative (Negative); Leukocyte Negative (Negative); Nitrite Negative (Negative); Protein, Urine (Dipstick) Negative (Neg-Trace); Specific Gravity, Urine 1.015 (1.005-1.030); Urobilinogen 0.2 mg/dL (0.2-1.0)
[2016-05-23 23:01] LABS: Bacteria/HPF Rare-Few HPF (None Seen); RBC/HPF 0-3 HPF (0-3); Transitional Epithelial 0-3 HPF (0-3); WBC/HPF 0-3 HPF (0-3)
[2016-05-23 23:02] LABS: Lactic Acid 0.8 mmol/L (0.5-2.2)
--- NOTE | 2016-05-24 00:02 | ERRECORD ---
[facility] EMERGENCY RECORD HPI WEAK-DIZZY (21:57 LHOD) CHIEF COMPLAINT: Patient presents for evaluation of weakness, Patient presents for evaluation of lightheadedness. HISTORIAN: History provided by patient. TIME COURSE: IN PAST HOUR PT REPORTS HE FELT LIGHTHEADED. HE HAD A BRIEF LOWER STERNAL / EPIGASTRIC PAIN. REPORTS HE CONTINUES TO FEEL WEAK, LIKE HE MAY PASS OUT. APPARENTLY THIS PAST WEEK PT HAD DIARRHEA, WHICH HAS BEEN CONTROLLED WITH LOMOTIL. HE HAD COUGH AND IS TAKING AMOXIL FOR THE COUGH. REPORTS IF HE BELCHES HIS CHEST WILL HURT, SINCE HE HAS GERD. PT HAS BEEN TAKING LOMOTIL 3 TIMES / DAY SINCE SEEN HERE THURSDAY. ALSO TAKING AMOXIL FOR POSSIBLE BRONCHITIS. ROS (22:04 LHOD) CONSTITUTIONAL: Historian denies fever. CARDIOVASCULAR: Historian reports chest pain. RESPIRATORY: Historian denies shortness of breath. GI: Historian denies abdominal pain, reports diarrhea, denies nausea, denies vomiting. CONCERNED HE MAY DIVERTICULITIS, BUT NO ABDOMINAL PAIN. GENITOURINARY MALE: Historian denies dysuria. MUSCULOSKELETAL: RIGHT FOOT DROP SINCE CVA IN 2004. SKIN: Historian denies rash. NEUROLOGIC: Historian reports dizziness, denies headache. REPORTS HE FELT LIGHTHEADED, LIKE HE MIGHT PASS OUT. HEMO/LYMPHATIC: ON ASA ONLY FOR ANTICOAGULATION. NOTES: All systems reviewed, negative except as described above. PAST MEDICAL HISTORY MEDICAL HISTORY: Past medical history includes gastrointestinal disease, diverticulitis, GAS, Tetanus immunization up to date, Pneumococcal vaccine up to date, Past medical history includes cardiac history, coronary artery disease, valvular heart disease mitral valve prolapse, Past medical history includes history of diabetes, Type II, Past medical history includes genitourinary history, benign prostatic hypertrophy, Past medical history includes history of hyperlipidemia, high cholesterol, Past medical history includes history of hypertension, Past medical history includes renal disease, insufficiency. VERIFIED 05/23/16. (21:31 MHEB) MALE SURGICAL HISTORY: VERIFIED 05-19-16, L ET R KNEE MARCELO SHOULDERS BACK. VERIFIED 05/23/16. (21:31 MHEB) PSYCHIATRIC HISTORY: No previous psychiatric history, Notes: DENIES, Notes: DENIES. (21:31 MHEB) SOCIAL HISTORY: Patient denies alcohol use, Patient denies drug use, Patient has no smoking history, Patient denies alcohol use, Patient denies drug use, Patient has no smoking history, Patient denies alcohol use, Patient denies drug use, Patient has no smoking history. (21:31 MHEB) &a-1R&a+25V*p+0X*[id number]*c202B*c15G*c2P*p-0X&a-25V&a+1R Name: Bharath Gamez : 1940 M76 MedRec: [id number] AcctNum: [id number] Prepared: Sat May 24, 2016 01:42 by Interface Page 1 of 3 pMD [facility] EMERGENCY RECORD NOTES: Nursing records reviewed, 2004--HX OF CVA WITH RIGHT HEMIPLEGIA, WHICH HAS RESOLVED EXCEPT FOR RIGHT FOOT DROP. (21:48 LHOD) KNOWN ALLERGIES CeleBREX meloxicam NAVINE (Unconfirmed) Niacin (Unconfirmed) PHENERGAN (Unconfirmed) Phenergan Plain ranitidine HCl Thiothixene (Unconfirmed) Vioxx CURRENT MEDICATIONS No recorded medications VITAL SIGNS (21:28 MHEB) VITAL SIGNS: BP: 157/57, Pulse: 59, Resp: 18, Temp: 98 (Oral), Pain: 0, O2 sat: 97 on Room Air, Time: 05/23/2016 21:28. PHYSICAL EXAM (22:10 LHOD) CONSTITUTIONAL: Vital signs reviewed, Patient afebrile, Pulse normal, Blood pressure, hypertensive, Respiratory rate normal, Patient alert and oriented to person, place and time. EYES: Pupils equally round and reactive to light, Extraocular muscles intact. ENT: Pharynx exam normal. NECK: Neck exam included findings of normal range of motion, Trachea midline, no carotid bruits. RESPIRATORY CHEST: Respiratory exam included findings of no respiratory distress, Breath sounds clear. CARDIOVASCULAR: Cardiovascular exam included findings of heart rate regular rate and rhythm, Heart sounds with, S3 present, S4 present, systolic murmur present, grade 2/6. ABDOMEN MALE: Abdominal exam included findings of abdomen nontender, Distension present, DISTENDED ABDOMEN, WITHOUT GUARDING. BACK: Back exam normal. UPPER EXTREMITY: Upper extremity exam normal. LOWER EXTREMITY: Lower extremity exam normal. NEURO: Neuro exam findings include patient oriented to person, place and time, Speech normal, Memory normal, Cranial nerves intact, no focal motor deficits, no focal sensory deficits, no cerebellar deficits, no nystagmus. SKIN: no rash. EKG INTERPRETATION (22:09 LHOD) &a-1R&a+25V*p+0X*u1918A*c202B*c15G*c2P*p-0X&a-25V&a+1R Name: Bharath Gamez : 1940 M76 MedRec: [id number] AcctNum: [id number] Prepared: Kip May 24, 2016 01:42 by Interface Page 2 of 3 pMD [facility] EMERGENCY RECORD 12 LEAD EKG INTERPRETATION: 12 lead EKG interpreted by Emergency Department Physician at time of study, 12 lead EKG shows normal sinus rhythm, Rate (beats per minute): 66, with unifocal premature ventricular complexes, T waves normal, Mccaskill normal. RADIOLOGYINTERPRETATION (22:09 LHOD) CHEST: Films of the chest show, cardiomegaly. MEDICATION ADMINISTRATION SUMMARY Drug Name: *Normal Saline, Dose Ordered: 300 mL, Route: IV Fluid Infusion, Status: Given, Time: 23:19 05/23/2016, Drug Name: *Normal Saline, Dose Ordered: 300 mL, Route: IV Fluid Infusion, Status: Given, Time: 22:39 05/23/2016, *Additional information available in notes, Detailed record available in Medication Service section. DOCTOR NOTES (23:22 LHOD) TEXT: PT INTENDS TO F/U WITH . REPORTS HE DOES NOT TAKE LASIX. ADVISED TO STOP LOMOTIL AND AMOXIL WHICH MIGHT BE CAUSING PROBLEMS WITH DIARRHEA / CONSTIPATION. PT ALSO TAKES MYLANTA WHICH I ADVISED MIGHT BE WORSENING HIS DIARRHEA. PROBLEM LIST No recorded problems DIAGNOSIS (23:15 LHOD) FINAL: PRIMARY: DEHYDRATION WITH HYPONATREMIA. PRESCRIPTION No recorded prescriptions DISPOSITION PATIENT: Disposition Type: Discharge, Disposition: *Discharge Home, Condition: Good. (23:15 LHOD) Patient left the department. (23:53 EB) [place]: EULALIO=MD Charlene, Ying MHEB=PHILLIP Green, [facility] &a-1R&a+25V*p+0X*v2049S*c202B*c15G*c2P*p-0X&a-25V&a+1R Name: Bharath Gamez : 1940 M76 MedRec: [id number] AcctNum: [id number] Prepared: Kip May 24, 2016 01:42 by Interface Page 3 of 3 pMD MTDD
--- NOTE | 2016-05-24 00:08 | PICIS ---
[facility] EMERGENCY RECORD TRIAGE (ThuMay 23, 2016 21:29 MHEB) TRIAGE NOTES: "BELCHING A BUNCH'. (ThuMay 23, 2016 21:29 MHEB) PATIENT: NAME: Bharath Gamez, AGE: 76, GENDER: male, : Thu1940, TIME OF GREET: ThuMay 23, 2016 21:23, PREFERRED LANGUAGE: Surinamese, ETHNICITY: Not or , ECODE BILLING MAP: [facility], SSN: [id number], Zip Code: [address], KG WEIGHT: 113.40, PHONE: CELL, , , PERSON ID: [id number]. (ThuMay 23, 2016 21:29 MHEB) COMPLAINT: WEAK, WOBBLY, AND FEELING FAINT. (ThuMay 23, 2016 21:29 MHEB) ADMISSION: URGENCY: 3 Urgent, ADMISSION SOURCE: Home, TRANSPORT: Walk-in, BED: TRIAGE. (ThuMay 23, 2016 21:29 MHEB) ASSESSMENT: Assessment: EPIGASTRIC PAIN, DIARRHEA, WEAK. (21:31 MHEB) SIRS SCORING: Heart Rate 55-109 (0), Temp range 96.8-101.1 (0), respiratory rate 12-24 (0), Mental Status altered: no (0). (21:31 MHEB) TRIAGE SCREENING: Patient denies suicidal ideation, Patient denies presence of domestic violence. (21:31 MHEB) PROVIDERS: TRIAGE NURSE: Adelaida Green RN. (ThuMay 23, 2016 21:29 MHEB) VITAL SIGNS: BP 157/57, Pulse 59, Resp 18, Temp 98, (Oral), Pain 0, O2 Sat 97, on Room Air, Time 05/23/2016 21:28. (21:28 MHEB) PREVIOUS VISIT ALLERGIES: CeleBREX, meloxicam, Phenergan Plain, ranitidine HCl, Vioxx. (ThuMay 23, 2016 21:29 MHEB) CeleBREX, meloxicam, Phenergan Plain, ranitidine HCl, Vioxx. (21:31 MHEB) KNOWN ALLERGIES CeleBREX meloxicam NAVINE (Unconfirmed) Niacin (Unconfirmed) PHENERGAN (Unconfirmed) Phenergan Plain ranitidine HCl Thiothixene (Unconfirmed) Vioxx CURRENT MEDICATIONS No recorded medications VITAL SIGNS (21:28 MHEB) VITAL SIGNS: BP: 157/57, Pulse: 59, Resp: 18, Temp: 98 (Oral), Pain: 0, O2 sat: 97 on Room Air, Time: 05/23/2016 21:28. NURSING ASSESSMENT: ABDOMEN (21:32 MHEB) CONSTITUTIONAL: Patient arrives ambulatory, Gait steady, History obtained from patient, Patient appears comfortable, Patient &a-1R&a+25V*p+0X*y3413T*c202B*c15G*c2P*p-0X&a-25V&a+1R Name: Bharath Gamez : 1940 M76 MedRec: [id number] AcctNum: [id number] Prepared: Sat May 24, 2016 01:47 by Interface Page 1 of 10 pMD [facility] EMERGENCY RECORD cooperative, Patient alert, Oriented to person, place and time, Skin warm, Skin dry, Skin normal in color, Mucous membranes pink, Mucous membranes moist, Patient is well-groomed, Patient complains of EPIGASTRIC PAIN, DIFFICULT TO DETERMINE SPECIFIC COMPLIANT PT CHANGES COMPLAINTS REPEATEDLY. PAIN: STATES HE HAS EPIGASTRIC PAIN BUT THEN REPORTS PAIN AT 0/10. "I DON'T HAVE ANY PAIN". ABDOMEN: Abdomen assessment findings include abdomen symmetrical, Associated with diarrhea, loose, Number of episodes: 1, FIRST PT STATES HE HAD DIARRHEA THEN STATED THAT HE HAS NOT HAD A BM SINCE 05/19/16. NURSING PROCEDURE: BEDSIDE RADIOLOGY (22:07 MHEB) PATIENT IDENTIFIER: Patient actively involved in identification process, Patient's identity verified by patient stating name, Patient's identity verified by patient stating date. BEDSIDE RADIOLOGY: Portable chest x-ray performed. SAFETY: Side rails up, Cart/Stretcher in lowest position, Family at bedside, Call light within reach, Hospital ID band on. NURSING PROCEDURE: BEDSIDE TESTING (23:00 MHEB) GLUCOSE: Glucose testing indicated for diabetic patient, Capillary blood sample, Result (mg/dl) 113. NURSING PROCEDURE: TUBE BUFFER (21:40 MHEB) PATIENT IDENTIFIER: Patient actively involved in identification process, Patient's identity verified by patient stating name, Patient's identity verified by patient stating date. TUBE BUFFER: Cardiac monitoring indicated for EPIGASTRIC PAIN, Patient placed on cardiac cath lab radiology technologist, Patient placed on non-invasive blood pressure monitor, Patient placed on continuous pulse oximetry. SAFETY: Side rails up, Cart/Stretcher in lowest position, Family at bedside, Call light within reach, Hospital ID band on. NURSING PROCEDURE: DISCHARGE NOTE (23:49 MHEB) DISCHARGE: Patient discharged to home, ambulating without assistance, family driving, accompanied by //partner, Summary of Care printed/ provided, Discharge instructions given to patient, Above person(s) verbalized understanding of discharge instructions and follow-up care, Patient treated and evaluated by physician. BELONGINGS: Belongings and valuables with patient at time of discharge include:, Belongings remain with patient, Valuables remain with patient. NURSING PROCEDURE: IV IV SITE 1: IV therapy indicated for hydration, IV established, to the left forearm, using a 20 gauge catheter, in three attempts, Labs drawn at time of placement, labeled in the presence of the patient &a-1R&a+25V*p+0X*r7759M*c202B*c15G*c2P*p-0X&a-25V&a+1R Name: Bharath Gamez : 1940 M76 MedRec: [id number] AcctNum: [id number] Prepared: Sat May 24, 2016 01:47 by Interface Page 2 of 10 pMD [facility] EMERGENCY RECORD and sent to lab. (22:25 MHEB) FOLLOW-UP SITE 1: After procedure, no drainage at IV site, IV discontinued, due to patient being discharged, catheter intact. (23:49 MHEB) NURSING PROCEDURE: ORTHOSTATIC VITAL SIGNS (22:58 MHEB) PATIENT IDENTIFIER: Patient actively involved in identification process, Patient's identity verified by patient stating name, Patient's identity verified by patient stating date. ORTHOSTATIC VITAL SIGNS: Lying:, Blood pressure: 154/68, Pulse: 65, Sitting:, Blood pressure: 156/66, Pulse: 66, Standing:, Blood pressure: 157/60, Pulse: 68. ORDER DETAILS Order Name: Accucheck, Status: Done, Time: 23:08 05/23/2016, User: KIM, - Ordered for: MD Chang Lefayne, - Entered by: MD Chang Lefayne - [facility] May 23, 2016 21:53, - Quantity: 1, Order Name: TUBE BUFFER ED, Status: Done, Time: 22:40 05/23/2016, User: EB, - Ordered for: MD Chang Lefayne, - Entered by: MD Chang Lefayne - [facility] May 23, 2016 21:47, - Quantity: 1, Order Name: Cardiac Profile w/CKMB & Troponin - I, Status: Active, Time: 21:47 05/23/2016, User: EULALIO, - Ordered for: MD Chang Lefayne, - Entered by: MD Chang Lefayne - [facility] May 23, 2016 21:47, - Quantity: 1, Order Name: CBC with Differential, Status: Active, Time: 21:47 05/23/2016, User: EULALIO, - Ordered for: MD Chang Lefayne, - Entered by: MD Chang Lefayne - ThuMay 23, 2016 21:47, - Quantity: 1, Order Name: Comprehensive Metabolic Panel, Status: Active, Time: 21:47 05/23/2016, User: EULALIO, - Ordered for: MD Chang Lefayne, - Entered by: MD Chang Lefayne - ThuMay 23, 2016 21:47, - Quantity: 1, Order Name: D-Dimer (Quantitative), Status: Active, Time: 21:59 05/23/2016, User: EULALIO, - Ordered for: MD Chang Lefayne, - Entered by: MD Chang Lefayne - [facility] May 23, 2016 21:59, - Quantity: 1, Order Name: EKG 12 Lead in Emergency Room, Status: Active, Time: 21:47 05/23/2016, User: EULALIO, - Ordered for: MD Chang Lefayne, - Entered by: MD Chang Lefayne - [facility] May 23, 2016 21:47, - Quantity: 1, &a-1R&a+25V*p+0X*i4369O*c202B*c15G*c2P*p-0X&a-25V&a+1R Name: Bharath Gamez : 1940 M76 MedRec: [id number] AcctNum: [id number] Prepared: Sat May 24, 2016 01:47 by Interface Page 3 of 10 pMD [facility] EMERGENCY RECORD Order Name: Lactic Acid, Status: Active, Time: 22:53 05/23/2016, User: EULALIO, - Ordered for: MD Chang Lefayne, - Entered by: MD Chang Lefayne - [facility] May 23, 2016 22:53, - Quantity: 1, Order Name: ORTHOSTATIC VITAL SIGNS, Status: Done, Time: 23:09 05/23/2016, User: ALNCE, - Ordered for: MD Chang Lefayne, - Entered by: MD Chang Lefayne - ThuMay 23, 2016 21:50, - Quantity: 1, Order Name: SALINE LOCK, Status: Done, Time: 22:40 05/23/2016, User: LANCE, - Ordered for: MD Chang Lefayne, - Entered by: MD Chang Lefayne - ThuMay 23, 2016 21:47, - Quantity: 1, Order Name: Urinalysis with Microscopic, Status: Active, Time: 21:50 05/23/2016, User: EULALIO, - Ordered for: MD Chang Lefayne, - Entered by: MD Chang Lefayne - [facility] May 23, 2016 21:50, - Quantity: 1, Order Name: XR Chest 1 View Portable, Status: Active, Time: 21:49 05/23/2016, User: EULALIO, - Ordered for: MD Chang Lefayne, - Entered by: MD Chang Lefayne - ThuMay 23, 2016 21:49, - Quantity: 1. MEDICATION ADMINISTRATION SUMMARY Drug Name: *Normal Saline, Dose Ordered: 300 mL, Route: IV Fluid Infusion, Status: Given, Time: 23:19 05/23/2016, Drug Name: *Normal Saline, Dose Ordered: 300 mL, Route: IV Fluid Infusion, Status: Given, Time: 22:39 05/23/2016, *Additional information available in notes, Detailed record available in Medication Service section. MEDICATION SERVICE Normal Saline: Order: Normal Saline (0.9 % sodium chloride) - Dose: 300 mL : IV Fluid Infusion Notes: BOLUS, THEN 150 ML/HR Ordered by: Ying Chang MD Entered by: Ying Chang MD ThuMay 23, 2016 21:47 , Acknowledged by: Adelaida Green RN ThuMay 23, 2016 22:38 Documented as given by: Adelaida Green RN ThuMay 23, 2016 22:39 Patient, Medication, Dose, Route and Time verified prior to administration. Amount given: 300ML, IV SITE #1 IV fluids established for hydration, IV SITE #1 into left forearm, IV SITE #1 1st bag hung, amount 1 Liter hung, IV SITE #1 bolus of 300 ml established, IV SITE #1 Rate of bolus, wide open, IV SITE #1 After bolus completed rate changed to 150 ml/hr. &a-1R&a+25V*p+0X*y8187T*c202B*c15G*c2P*p-0X&a-25V&a+1R Name: Bharath Gamez : 1940 M76 MedRec: [id number] AcctNum: [id number] Prepared: Sat May 24, 2016 01:47 by Interface Page 4 of 10 pMD [facility] EMERGENCY RECORD : Follow Up : Response assessment performed, No signs or symptoms of allergic reaction noted, _IV SITE #1:_, IV fluid infusion discontinued, on ThuMay 23, 2016 23:05, 30 minutes, ., NS BOLUS OF 300ML COMPLETED AND RATE CHANGED TO 150ML/HR AT ORDERED. (23:00 MHEB) : Follow Up : Response assessment performed, No signs or symptoms of allergic reaction noted, _IV SITE #1:_, IV fluid infusion discontinued, on ThuMay 23, 2016 23:18, 40 minutes, . (23:00 MHEB) Normal Saline: Order: Normal Saline (0.9 % sodium chloride) - Dose: 300 mL : IV Fluid Infusion Notes: REPEAT BOLUS 300 ML Ordered by: Ying Chang MD Entered by: Ying Chang MD ThuMay 23, 2016 23:14 , Acknowledged by: Adelaida Green RN ThuMay 23, 2016 23:19 Documented as given by: Adelaida Green RN ThuMay 23, 2016 23:19 Patient, Medication, Dose, Route and Time verified prior to administration. Amount given: 300ML, IV SITE #1 IV fluids established for hydration, IV SITE #1 into left forearm, IV SITE #1 1st bag hung, amount 1 Liter hung, IV SITE #1 bolus of 300 ml established, IV SITE #1 Rate of bolus, wide open, THIS IS THE SECOND 300ML BOLUS GIVEN OUT OF THE SAME 1000ML BAG HUNG AT 2239. : Follow Up : Response assessment performed, No signs or symptoms of allergic reaction noted, Decreased pain, Decreased symptoms, _IV SITE #1:_, IV fluid infusion discontinued, on ThuMay 23, 2016 23:45, 30 minutes, ., Total amount infused: 300ML. (23:45 MHEB) HPI WEAK-DIZZY (21:57 LHOD) CHIEF COMPLAINT: Patient presents for evaluation of weakness, Patient presents for evaluation of lightheadedness. HISTORIAN: History provided by patient. TIME COURSE: IN PAST HOUR PT REPORTS HE FELT LIGHTHEADED. HE HAD A BRIEF LOWER STERNAL / EPIGASTRIC PAIN. REPORTS HE CONTINUES TO FEEL WEAK, LIKE HE MAY PASS OUT. APPARENTLY THIS PAST WEEK PT HAD DIARRHEA, WHICH HAS BEEN CONTROLLED WITH LOMOTIL. HE HAD COUGH AND IS TAKING AMOXIL FOR THE COUGH. REPORTS IF HE BELCHES HIS CHEST WILL HURT, SINCE HE HAS GERD. PT HAS BEEN TAKING LOMOTIL 3 TIMES / DAY SINCE SEEN HERE THURSDAY. ALSO TAKING AMOXIL FOR POSSIBLE BRONCHITIS. ROS (22:04 LHOD) CONSTITUTIONAL: Historian denies fever. CARDIOVASCULAR: Historian reports chest pain. RESPIRATORY: Historian denies shortness of breath. GI: Historian denies abdominal pain, reports diarrhea, denies nausea, denies vomiting. CONCERNED HE MAY DIVERTICULITIS, BUT NO ABDOMINAL PAIN. GENITOURINARY MALE: Historian denies dysuria. MUSCULOSKELETAL: RIGHT FOOT DROP SINCE CVA IN 2004. SKIN: Historian denies rash. &a-1R&a+25V*p+0X*p9194Y*c202B*c15G*c2P*p-0X&a-25V&a+1R Name: Bharath Gamez : 1940 M76 MedRec: [id number] AcctNum: [id number] Prepared: Sat May 24, 2016 01:47 by Interface Page 5 of 10 pMD [facility] EMERGENCY RECORD NEUROLOGIC: Historian reports dizziness, denies headache. REPORTS HE FELT LIGHTHEADED, LIKE HE MIGHT PASS OUT. HEMO/LYMPHATIC: ON ASA ONLY FOR ANTICOAGULATION. NOTES: All systems reviewed, negative except as described above. PAST MEDICAL HISTORY MEDICAL HISTORY: Past medical history includes gastrointestinal disease, diverticulitis, GAS, Tetanus immunization up to date, Pneumococcal vaccine up to date, Past medical history includes cardiac history, coronary artery disease, valvular heart disease mitral valve prolapse, Past medical history includes history of diabetes, Type II, Past medical history includes genitourinary history, benign prostatic hypertrophy, Past medical history includes history of hyperlipidemia, high cholesterol, Past medical history includes history of hypertension, Past medical history includes renal disease, insufficiency. VERIFIED 05/23/16. (21:31 MHEB) MALE SURGICAL HISTORY: VERIFIED 05-19-16, L ET R KNEE MARCELO SHOULDERS BACK. VERIFIED 05/23/16. (21:31 MHEB) PSYCHIATRIC HISTORY: No previous psychiatric history, Notes: DENIES, Notes: DENIES. (21:31 MHEB) SOCIAL HISTORY: Patient denies alcohol use, Patient denies drug use, Patient has no smoking history, Patient denies alcohol use, Patient denies drug use, Patient has no smoking history, Patient denies alcohol use, Patient denies drug use, Patient has no smoking history. (21:31 MHEB) NOTES: Nursing records reviewed, 2004--HX OF CVA WITH RIGHT HEMIPLEGIA, WHICH HAS RESOLVED EXCEPT FOR RIGHT FOOT DROP. (21:48 LHOD) PHYSICAL EXAM (22:10 LHOD) CONSTITUTIONAL: Vital signs reviewed, Patient afebrile, Pulse normal, Blood pressure, hypertensive, Respiratory rate normal, Patient alert and oriented to person, place and time. EYES: Pupils equally round and reactive to light, Extraocular muscles intact. ENT: Pharynx exam normal. NECK: Neck exam included findings of normal range of motion, Trachea midline, no carotid bruits. RESPIRATORY CHEST: Respiratory exam included findings of no respiratory distress, Breath sounds clear. CARDIOVASCULAR: Cardiovascular exam included findings of heart rate regular rate and rhythm, Heart sounds with, S3 present, S4 present, systolic murmur present, grade 2/6. ABDOMEN MALE: Abdominal exam included findings of abdomen nontender, Distension present, DISTENDED ABDOMEN, WITHOUT GUARDING. BACK: Back exam normal. &a-1R&a+25V*p+0X*g5702V*c202B*c15G*c2P*p-0X&a-25V&a+1R Name: Bharath Gamez : 1940 M76 MedRec: [id number] AcctNum: [id number] Prepared: Sat May 24, 2016 01:47 by Interface Page 6 of 10 pMD [facility] EMERGENCY RECORD UPPER EXTREMITY: Upper extremity exam normal. LOWER EXTREMITY: Lower extremity exam normal. NEURO: Neuro exam findings include patient oriented to person, place and time, Speech normal, Memory normal, Cranial nerves intact, no focal motor deficits, no focal sensory deficits, no cerebellar deficits, no nystagmus. SKIN: no rash. LAB INTERPRETATION (22:52 LHOD) INTERPRETATION: I reviewed the lab results, CBC normal, Chemistry abnormal, Sodium decreased, Creatinine elevated, Bicarbonate decreased, Cardiac enzymes normal, Urinalysis normal, Lactate normal. EVENTS TRANSFER: Triage to Emergency Triage. (ThuMay 23, 2016 21:29 MHEB) Emergency Triage to Main ED -03. (21:31 MHEB) Removed from Emergency Main ED -03. (23:53 MHEB) RADIOLOGYINTERPRETATION (22:09 LHOD) CHEST: Films of the chest show, cardiomegaly. EKG INTERPRETATION (22:09 LHOD) 12 LEAD EKG INTERPRETATION: 12 lead EKG interpreted by Emergency Department Physician at time of study, 12 lead EKG shows normal sinus rhythm, Rate (beats per minute): 66, with unifocal premature ventricular complexes, T waves normal, [place] normal. DOCTOR NOTES (23:22 LHOD) TEXT: PT INTENDS TO F/U WITH . REPORTS HE DOES NOT TAKE LASIX. ADVISED TO STOP LOMOTIL AND AMOXIL WHICH MIGHT BE CAUSING PROBLEMS WITH DIARRHEA / CONSTIPATION. PT ALSO TAKES MYLANTA WHICH I ADVISED MIGHT BE WORSENING HIS DIARRHEA. PROBLEM LIST No recorded problems DIAGNOSIS (23:15 LHOD) FINAL: PRIMARY: DEHYDRATION WITH HYPONATREMIA. DISPOSITION PATIENT: Disposition Type: Discharge, Disposition: *Discharge Home, Condition: Good. (23:15 LHOD) Patient left the department. (23:53 MHEB) INSTRUCTION (23:19 LHOD) DISCHARGE: DEHYDRATION (6Y-ADULT). FOLLOWUP: MD Ralph, Jayy, [facility], [address] [place], [place] [address], , Follow up with &a-1R&a+25V*p+0X*p1529B*c202B*c15G*c2P*p-0X&a-25V&a+1R Name: Bharath Gamez : 1940 M76 MedRec: [id number] AcctNum: [id number] Prepared: Sat May 24, 2016 01:47 by Interface Page 7 of 10 pMD [facility] EMERGENCY RECORD Primary Care Physician in 7 days. SPECIAL: STOP THE LOMOTIL AND AMOXIL, BOTH MAY BE CAUSING PROBLEMS WITH YOUR BOWELS. SOUPS OR FOOD WITH ADDITIONAL SODIUM FOR THE NEXT 1-2 DAYS. DO NOT DRINKING LARGE AMOUNTS OF PLAIN WATER OR TEA WHICH MAY DILUTE YOUR BODY SODIUM /SALTS. *RETURN IF WORSE. PRESCRIPTION No recorded prescriptions IMAGING *SUPPLY CHARGE SHEET: Image captured from scanner. (23:50 MHEB) *DISCHARGE INSTRUCTIONS RECEIPT: Image captured from scanner. (23:50 MHEB) *EKG: Image captured from scanner. (23:51 MHEB) ADMIN (Sat May 24, 2016 01:34 LHOD) DIGITAL SIGNATURE: MD Chang Lefayne. RESULTS RADIOLOGY: XR Chest 1 View Portable Observe DT: ThuMay 23, 2016 21:51, CXRP PORTABLE AP CHEST X-RAY 05/23/16 HISTORY: Excessive belching, epigastric pain. FINDINGS: Compared to study on 05/19/16. There is minimal linear scarring in the right mid lung zone. The lungs are otherwise clear. Cardiac silhouette is magnified by projection. Pulmonary vasculature is within normal limits. No other inter sravanthi change. IMPRESSION: No acute cardiopulmonary process. POS: [facility] . (23:14 LHOD) LABORATORY: Comprehensive Metabolic Panel Collection DT: ThuMay 23, 2016 22:27, *Sodium 132 - L mmol/L, Range (136-145), Potassium 4.3 mmol/L, Range (3.5-5.1), Chloride 98 mmol/L, Range (98-107), *Carbon Dioxide 21 - L mmol/L, Range (23-31), &a-1R&a+25V*p+0X*g4754A*c202B*c15G*c2P*p-0X&a-25V&a+1R Name: Bharath Gamez : 1940 M76 MedRec: [id number] AcctNum: [id number] Prepared: Sat May 24, 2016 01:47 by Interface Page 8 of 10 pMD [facility] EMERGENCY RECORD Anion Gap 17 mmol/L, Range (10-20), BUN (Urea Nitrogen) 15 mg/dL, Range (8.4-25.7), *Creatinine 1.52 - H mg/dL, Range (0.7-1.3), Estimated GFR-MDRD 45 , Reference Range for Estimated GFR: Greater than 90, mL/min/1.73 m2 NOTE: The MDRD equation has not been validated for use, with the elderly (over 70 years of age), women, patients with, serious comorbid condition or persons with extremes of body size, muscle, mass, or nutritional status. , *Glucose 116 - H mg/dL, Range (83-110), Calcium 9.2 mg/dL, Range (7.8-10.44), Bilirubin, Total 0.7 mg/dL, Range (0.2-1.2), Protein, Total 7.2 g/dL, Range (5.8-8.1), NOTE: Plasma values are generally 0.3 to 0.5 g/dL higher than serum values, due to the presence of fibrinogen. , Albumin 4.2 g/dL, Range (3.4-4.8), Globulin 3.0 g/dL, Range (2.4-3.5), Alb/Glob Ratio 1.4 g/dL, Range (1.2-2.2), Alkaline Phosphatase 57 U/L, Range (40-150), AST (SGOT) 31 U/L, Range (5-34), ALT (SGPT) 36 U/L, Range (0-55). (22:51 LHOD) CBC with Differential Collection DT: ThuMay 23, 2016 22:27, White Blood Cell (WBC) Count 8.2 thou/uL, Range (4.8-10.8), Red Blood Cell (RBC) Count 4.86 mill/uL, Range (4.70-6.10), Hemoglobin 15.7 g/dL, Range (14.0-18.0), Hematocrit 46.0 %, Range (42.0-52.0), *Mean Corpuscular Volume 94.6 - H fl, Range (80.0-94.0), *Mean Corpuscular Hemoglobin 32.2 - H pg, Range (27.0-31.0), Mean Corpuscular HGB CONC 34.0 g/dL, Range (32.0-36.0), *RBC Distribution Width 11.0 - L %, Range (11.5-14.5), Platelet Count 180 thou/uL, Range (130-400), Mean Platelet Volume 10.3 fL, Range (7.4-10.4), %Neutrophils 62.6 %, Range (42.0-75.0), %Lymphocytes 28.4 %, Range (21.0-51.0), %Monocytes 7.3 %, Range (0.0-10.0), %Eosinophils 0.9 %, Range (0.0-10.0), %Basophils 0.8 %, Range (0.0-1.0), #Neutrophils 5.1 thou/uL, Range (1.40-6.50), *#Monocytes 0.6 - H thou/uL, Range (0.11-0.59), #Eosinphils 0.1 thou/uL, Range (0.0-0.7), #Basophils 0.1 thou/uL, Range (0.0-0.2), Neutrophil 65 %, Range (42-75), Lymphocytes 31 %, Range (21-51), Monocytes 4 %, Range (0-10). (23:02 OD) Cardiac Profile w/CKMB & TropI Collection DT: ThuMay 23, 2016 22:27, CKMB 5.0 ng/mL, Range (0-6.6), Troponin I Less than 0.010 ng/mL, Range (< 0.028), Reference Range &a-1R&a+25V*p+0X*o6401L*c202B*c15G*c2P*p-0X&a-25V&a+1R Name: Bharath Gamez : 1940 M76 MedRec: [id number] AcctNum: [id number] Prepared: [facility] May 24, 2016 01:47 by Interface Page 9 of 10 pMD [facility] EMERGENCY RECORD , 0.00 - 0.028 ng/mL Negative 0.029 - 0.29 ng/mL , Indeterminate Greater or Equal to 0.3 ng/mL Strongly suggests [place] , . (23:02 LHOD) Lactic Acid Collection DT: ThuMay 23, 2016 23:01, Lactic Acid 0.8 mmol/L, Range (0.5-2.2). (23:05 LHOD) Urinalysis with Microscopic Collection DT: ThuMay 23, 2016 22:59, Color Yellow , Range (Yellow), Clarity Clear , Range (Clear), Specific [place], Urine 1.015 , Range (1.005-1.030), pH, Urine 5.0 , Range (5.0-9.0), Leukocyte Negative , Range (Negative), Nitrite Negative , Range (Negative), Protein, Urine (Dipstick) Negative mg/dL, Range (Neg-Trace), Glucose, Urine (Dipstick) Negative mg/dL, Range (Negative), Ketone, Urine Negative mg/dL, Range (Negative), Urobilinogen 0.2 mg/dL, Range (0.2-1.0), Bilirubin Negative , Range (Negative), Blood, Urine Negative , Range (Negative), RBC/HPF 0-3 HPF, Range (0-3), WBC/HPF 0-3 HPF, Range (0-3), *Squamous Epithelial 4-6 - H HPF, Range (0-3), Transitional Epithelial 0-3 HPF, Range (0-3), *Renal Epithelial 4-6 - H HPF, Range (0-3), Bacteria/HPF Rare-Few HPF, Range (None Seen). (23:05 LHOD) [place]: LHOD=MD Charlene, Ying EB=PHILLIP Green, Adelaida &a-1R&a+25V*p+0X*o2426P*c202B*c15G*c2P*p-0X&a-25V&a+1R Name: Bharath Gamez Gaby : 1940 M76 MedRec: [id number] AcctNum: [id number] Prepared: Kip May 24, 2016 01:47 by Interface Page 10 of 10 pMD MTDD
== END 2016-05-23 23:45 | disposition home or self-care (01) ==
LOC: MADERS 21:23
DX: E87.1 Hypo-osmolality and hyponatremia (principal); E86.0 Dehydration; K57.92 Diverticulitis of intestine, part unspecified, without perforation or abscess without bleeding; I25.10 Atherosclerotic heart disease of native coronary artery without angina pectoris; E11.9 Type 2 diabetes mellitus without complications; N40.0 Benign prostatic hyperplasia without lower urinary tract symptoms; E78.5 Hyperlipidemia, unspecified; E78.00 Pure hypercholesterolemia, unspecified; I10 Essential (primary) hypertension; N28.9 Disorder of kidney and ureter, unspecified
CPT/HCPCS: 36415; 36416; 71010; 80053; 81001; 82553; 83605; 84484; 85025; 85379; 93005; J7050

== ENCOUNTER 2016-11-05 17:20 | Emergency (ER) | payer MEDICARE ==
[2016-11-05] MEDS ORDERED: Acetaminophen 500 MG TAB ONE (17:48)
[2016-11-05] MEDS ORDERED: Diazepam 5 MG TAB ONE (17:48)
[2016-11-05] MEDS ORDERED: Dexamethasone 4 MG TAB ONE (17:48)
[2016-11-05] MEDS ORDERED: HYDROcodone/Acetaminophen 5/325 mg Tablet ONE (17:48)
== END 2016-11-05 18:00 | disposition home or self-care (01) ==
LOC: MADERS 17:20
DX: M54.12 Radiculopathy, cervical region (principal); I25.10 Atherosclerotic heart disease of native coronary artery without angina pectoris; E11.9 Type 2 diabetes mellitus without complications; E78.5 Hyperlipidemia, unspecified; I10 Essential (primary) hypertension
CPT/HCPCS: 99283; J8540

== ENCOUNTER 2017-05-07 11:28 | Outpatient (CLI) | payer MEDICARE ==
[2017-05-07 12:15] LABS: #Basophils 0.1 thou/uL (0.0-0.2); #Eosinphils 0.1 thou/uL (0.0-0.7); #Lymphocytes 2.1 thou/uL (1.20-3.40); #Monocytes 0.5 thou/uL (0.11-0.59); #Neutrophils 3.7 thou/uL (1.40-6.50); %Eosinophils 1.3 % (0.0-10.0); %Lymphocytes 32.6 % (21.0-51.0); %Monocytes 7.8 % (0.0-10.0); %Neutrophils 57.3 % (42.0-75.0); Hemoglobin 14.8 g/dL (14.0-18.0); Mean Corpuscular HGB CONC 33.1 g/dL (32.0-36.0); Mean Corpuscular Hemoglobin 32.2 pg (27.0-31.0); Mean Corpuscular Volume 97.3 fl (80.0-94.0); Platelet Count 165 thou/uL (130-400); RBC Distribution Width 11.8 % (11.5-14.5); White Blood Cell (WBC) Count 6.5 thou/uL (4.8-10.8)
[2017-05-07 13:04] LABS: ALT (SGPT) 38 U/L (8-55); AST (SGOT) 24 U/L (5-34); Albumin 3.9 g/dL (3.4-4.8); Alkaline Phosphatase 51 U/L (40-150); Anion Gap 15 mmol/L (10-20); BUN (Urea Nitrogen) 15 mg/dL (8.4-25.7); Bilirubin, Total 0.5 mg/dL (0.2-1.2); Calc. Creatinine Clearance 0 mL/min (70-130); Calcium 9.3 mg/dL (7.8-10.44); Carbon Dioxide 26 mmol/L (23-31); Cardiac Risk 2.5 (Less than 4.5); Chloride 100 mmol/L (98-107); Cholesterol 114 mg/dl (< 200 Desired); Estimated GFR-MDRD 60; Globulin 2.7 g/dL (2.4-3.5); Glucose 109 mg/dL (83-110); HDL Cholesterol 45 mg/dL (>60 Neg Risk); LDL Cholesterol, Calculated 41 mg/dL; Potassium 4.1 mmol/L (3.5-5.1); Protein, Total 6.6 g/dL (5.8-8.1); Sodium 137 mmol/L (136-145); Triglycerides 141 mg/dL (Less than 150)
[2017-05-07 16:59] LABS: Hemoglobin A1c 6.3 % (4.0-6.0)
[2017-05-07 17:17] LABS: Creatinine, Urine 123.29 mg/dL (63-166); Microalbumin Urine 2.5 mg/dL (0.5-50.0); Microalbumin/Creat Ratio 20.3 mg/g (Less than 30)
== END 2017-05-07 11:29 | disposition home or self-care (01) ==
LOC: MADLABBHPM 11:28
PROVIDERS: ATTEND Family Medicine
DX: E11.9 Type 2 diabetes mellitus without complications (principal)
CPT/HCPCS: 36415; 80053; 80061; 82043; 83036; 85025

== ENCOUNTER 2017-11-29 20:04 | Emergency (ER) | payer MEDICARE ==
--- NOTE | 2017-11-29 21:02 | RAD ---
AP VIEW CHEST: HISTORY: Altered mental status. COMPARISON: 05/23/2016 TECHNIQUE: AP view chest is obtained on 11/29/2017. FINDINGS: The patient has had previous distal clavicular resections bilaterally. Some calcification of the aorta is seen. The lungs are well aerated. No evidence of active intratho racic disease is seen. No evidence of effusions, pneumonia, or pneumothorax is seen. IMPRESSION: Unremarkable anterior-posterior view chest. POS: [facility]
--- NOTE | 2017-11-29 21:03 | CT ---
BRAIN CT WITHOUT IV CONTRAST: HISTORY: A 77-year-old male with altered mental status. COMPARISON: 01/21/2012 FINDINGS: Bilateral atrophy and chronic white matter ischemic changes with some patchy bilateral lacunar infarc t changes. No focal mass or midline shift. No intraaxial or extraaxial hemorrhage. IMPRESSION: Stable atrophy. Chronic white matter ischemic changes. No lacunar infarct changes. No mass, bleed, or other significant acute process. POS: [facility]
[2017-11-29 21:16] LABS: #Basophils 0.1 thou/uL (0.0-0.2); #Eosinphils 0.1 thou/uL (0.0-0.7); #Lymphocytes 2.6 thou/uL (1.20-3.40); #Monocytes 0.7 thou/uL (0.11-0.59); #Neutrophils 4.4 thou/uL (1.40-6.50); %Basophils 1.2 % (0.0-1.0); %Lymphocytes 33.4 % (21.0-51.0); %Monocytes 8.5 % (0.0-10.0); %Neutrophils 55.8 % (42.0-75.0); Hemoglobin 14.8 g/dL (14.0-18.0); Mean Corpuscular HGB CONC 33.4 g/dL (32.0-36.0); Mean Corpuscular Hemoglobin 30.9 pg (27.0-31.0); Mean Corpuscular Volume 92.5 fL (78.0-98.0); Mean Platelet Volume 9.8 fL (7.4-10.4); Platelet Count 188 thou/uL (130-400); RBC Distribution Width 12.3 % (11.5-14.5); Red Blood Cell (RBC) Count 4.78 mill/uL (4.70-6.10); White Blood Cell (WBC) Count 7.9 thou/uL (4.8-10.8)
[2017-11-29 21:42] LABS: Bilirubin Negative (Negative); Blood, Urine Negative (Negative); Clarity Clear (Clear); Glucose, Urine (Dipstick) Negative (Negative); Leukocyte Trace (Negative); Nitrite Negative (Negative); Protein, Urine (Dipstick) Negative (Neg-Trace); Urobilinogen 0.2 mg/dL (0.2-1.0); pH, Urine 5.5 (5.0-9.0)
[2017-11-29 21:45] LABS: Anion Gap 19 mmol/L (10-20); BUN (Urea Nitrogen) 22 mg/dL (8.4-25.7); Calc. Creatinine Clearance 0 mL/min (70-130); Calcium 9.7 mg/dL (7.8-10.44); Carbon Dioxide 22 mmol/L (23-31); Chloride 103 mmol/L (98-107); Estimated GFR-MDRD 47; Glucose 141 mg/dL (83-110); Potassium 4.1 mmol/L (3.5-5.1); Sodium 140 mmol/L (136-145)
[2017-11-29 21:54] LABS: Bacteria/HPF Rare-Few HPF (None Seen); RBC/HPF 0-3 HPF (0-3)
[2017-11-29 22:13] LABS: Troponin I 0.018 ng/mL (< 0.028)
[2017-11-29 22:21] LABS: CKMB 6.9 ng/mL (0-6.6)
[2017-11-29] MEDS ORDERED: cefTRIAXone\\ROCEPHIN 1 GM VIAL ONE (22:23)
[2017-11-29] MEDS ORDERED: cefTRIAXone\\ROCEPHIN 2 GM VIAL ONE (22:23)
== END 2017-11-29 23:15 | disposition home or self-care (01) ==
LOC: MADERS 20:04
DX: N39.0 Urinary tract infection, site not specified (principal); Z86.73 Personal history of transient ischemic attack (TIA), and cerebral infarction without residual deficits; I25.10 Atherosclerotic heart disease of native coronary artery without angina pectoris; E11.9 Type 2 diabetes mellitus without complications; N40.0 Benign prostatic hyperplasia without lower urinary tract symptoms; E78.5 Hyperlipidemia, unspecified; I10 Essential (primary) hypertension; I05.9 Rheumatic mitral valve disease, unspecified
CPT/HCPCS: 36415; 70450; 71045; 80048; 81003; 81015; 82553; 83880; 84484; 85025; 93005; 94760; 96365; J0696; J7050

== ENCOUNTER 2017-12-07 17:30 | Emergency (ER) | payer MEDICARE ==
[~2017-12-07 17:30] MED LIST changes: -Sodium Chloride 0.9% 1,000 ML BAG ONE; +Sodium Chloride 0.9% 500 ML BAG ONE
[2017-12-07 18:03] LABS: Bilirubin Negative (Negative); Blood, Urine Negative (Negative); Clarity Clear (Clear); Glucose, Urine (Dipstick) Negative (Negative); Leukocyte Negative (Negative); Nitrite Negative (Negative); Protein, Urine (Dipstick) Negative (Neg-Trace); Urobilinogen 0.2 mg/dL (0.2-1.0); pH, Urine 6.5 (5.0-9.0)
[2017-12-07 19:08] LABS: #Basophils 0.1 thou/uL (0.0-0.2); #Lymphocytes 2.2 thou/uL (1.20-3.40); #Monocytes 0.8 thou/uL (0.11-0.59); #Neutrophils 5.2 thou/uL (1.40-6.50); %Basophils 0.8 % (0.0-1.0); %Eosinophils 0.3 % (0.0-10.0); %Lymphocytes 26.7 % (21.0-51.0); %Monocytes 9.9 % (0.0-10.0); %Neutrophils 62.5 % (42.0-75.0); Hemoglobin 15.1 g/dL (14.0-18.0); Mean Corpuscular HGB CONC 33.9 g/dL (32.0-36.0); Mean Corpuscular Hemoglobin 30.4 pg (27.0-31.0); Mean Corpuscular Volume 89.4 fL (78.0-98.0); Mean Platelet Volume 9.9 fL (7.4-10.4); Platelet Count 181 thou/uL (130-400); RBC Distribution Width 11.5 % (11.5-14.5); Red Blood Cell (RBC) Count 4.99 mill/uL (4.70-6.10); White Blood Cell (WBC) Count 8.3 thou/uL (4.8-10.8)
[2017-12-07 19:32] LABS: ALT (SGPT) 29 U/L (8-55); AST (SGOT) 27 U/L (5-34); Albumin 4.3 g/dL (3.4-4.8); Alkaline Phosphatase 49 U/L (40-150); Anion Gap 20 mmol/L (10-20); BUN (Urea Nitrogen) 18 mg/dL (8.4-25.7); Bilirubin, Total 0.7 mg/dL (0.2-1.2); Calc. Creatinine Clearance 0 mL/min (70-130); Calcium 9.4 mg/dL (7.8-10.44); Carbon Dioxide 19 mmol/L (23-31); Chloride 94 mmol/L (98-107); Estimated GFR-MDRD 50; Globulin 2.7 g/dL (2.4-3.5); Glucose 92 mg/dL (83-110); Lipase 20 U/L (8-78); Potassium 3.8 mmol/L (3.5-5.1); Sodium 129 mmol/L (136-145)
--- NOTE | 2017-12-07 21:07 | RAD ---
ONE VIEW CHEST: HISTORY: Dyspnea. COMPARISON: 11/29/2017 FINDINGS: AP upright chest radiograph demonstrates a normal cardiac silhouette. The pulmonary vessels and hilu m are normal. The costophrenic angles are clear. No mass. No consolidation. No pneumothorax or os seous abnormalities. Linear, horizontally oriented opacity in the right hemithorax may represent thickening of the minor f issures. IMPRESSION: No acute cardiopulmonary process. POS: [facility]
== END 2017-12-07 22:44 | disposition short-term general hospital (02) ==
LOC: MADERS 17:30
DX: I21.4 Non-ST elevation (NSTEMI) myocardial infarction (principal); Z86.73 Personal history of transient ischemic attack (TIA), and cerebral infarction without residual deficits; I25.10 Atherosclerotic heart disease of native coronary artery without angina pectoris; E11.9 Type 2 diabetes mellitus without complications; N40.0 Benign prostatic hyperplasia without lower urinary tract symptoms; E78.5 Hyperlipidemia, unspecified; I10 Essential (primary) hypertension; Z79.899 Other long term (current) drug therapy
CPT/HCPCS: 36416; 71045; 80053; 81003; 83690; 84484; 85025; 36415-59; J7050

== ENCOUNTER 2018-03-07 20:28 | Emergency (ER) | payer MEDICARE ==
[2018-03-07 21:31] LABS: Bilirubin Negative (Negative); Blood, Urine Small (Negative); Clarity Clear (Clear); Glucose, Urine (Dipstick) 100 mg/dL (Negative); Leukocyte Trace (Negative); Nitrite Negative (Negative); Protein, Urine (Dipstick) Negative (Neg-Trace); Urobilinogen 0.2 mg/dL (0.2-1.0); pH, Urine 5.5 (5.0-9.0)
[2018-03-07 21:34] LABS: Bacteria/HPF Rare-Few HPF (None Seen); Renal Epithelial 0-3 HPF (0-3); Specific Gravity, Urine 1.006 (1.002-1.036); Squamous Epithelial 0-3 HPF (0-3); Transitional Epithelial 0-3 HPF (0-3); WBC/HPF 0-3 HPF (0-3)
== END 2018-03-07 21:28 | disposition home or self-care (01) ==
LOC: MADERS 20:28
DX: N39.0 Urinary tract infection, site not specified (principal); Z79.899 Other long term (current) drug therapy
CPT/HCPCS: 81003; 81015; 87086; 99283

== ENCOUNTER 2018-03-12 14:56 | Emergency (ER) | payer MEDICARE ==
[2018-03-12 16:36] LABS: #Basophils 0.1 thou/uL (0.0-0.2); #Eosinphils 0.1 thou/uL (0.0-0.7); #Lymphocytes 1.7 thou/uL (1.20-3.40); #Monocytes 0.6 thou/uL (0.11-0.59); #Neutrophils 4.1 thou/uL (1.40-6.50); Hemoglobin 12.6 g/dL (14.0-18.0); Mean Corpuscular HGB CONC 34.1 g/dL (32.0-36.0); Mean Corpuscular Volume 93.8 fL (78.0-98.0); Mean Platelet Volume 8.5 fL (7.4-10.4); Platelet Count 217 thou/uL (130-400); RBC Distribution Width 11.6 % (11.5-14.5); Red Blood Cell (RBC) Count 3.95 mill/uL (4.70-6.10); White Blood Cell (WBC) Count 6.6 thou/uL (4.8-10.8)
[2018-03-12 16:50] LABS: ALT (SGPT) 31 U/L (8-55); AST (SGOT) 28 U/L (5-34); Albumin 3.7 g/dL (3.4-4.8); Alkaline Phosphatase 86 U/L (40-150); Anion Gap 13 mmol/L (10-20); BUN (Urea Nitrogen) 10 mg/dL (8.4-25.7); Bilirubin, Total 0.3 mg/dL (0.2-1.2); Calc. Creatinine Clearance 0 mL/min (70-130); Calcium 9.6 mg/dL (7.8-10.44); Carbon Dioxide 28 mmol/L (23-31); Chloride 97 mmol/L (98-107); Estimated GFR-MDRD 64; Globulin 2.9 g/dL (2.4-3.5); Glucose 177 mg/dL (83-110); Lipase 10 U/L (8-78); Potassium 4.8 mmol/L (3.5-5.1); Protein, Total 6.6 g/dL (5.8-8.1); Sodium 133 mmol/L (136-145)
[2018-03-12 16:51] LABS: Bilirubin Negative (Negative); Blood, Urine Moderate (Negative); Clarity Clear (Clear); Glucose, Urine (Dipstick) Negative (Negative); Leukocyte Trace (Negative); Nitrite Negative (Negative); Protein, Urine (Dipstick) Negative (Neg-Trace); Urobilinogen 0.2 mg/dL (0.2-1.0); pH, Urine 5.5 (5.0-9.0)
[2018-03-12 16:52] LABS: Specific Gravity, Urine 1.005 (1.002-1.036)
[2018-03-12 17:00] LABS: Bacteria/HPF Rare-Few HPF (None Seen); Squamous Epithelial 0-3 HPF (0-3); WBC/HPF 0-3 HPF (0-3)
--- NOTE | 2018-03-12 18:13 | CT ---
CT LUMBAR SPINE WITHOUT CONTRAST: Date: 03/12/18 HISTORY: Pain. COMPARISON: CT lumbar spine dated 01/11/18. FINDINGS: Similar appearance of spinal fusion hardware at L4-5, which is intact. New laminectomy changes at L2- 3. There is some gas along the posterior elements. Extensive fluid along the posterior elements. Ther e is a fracture of the L2 spinous process. IMPRESSION: 1. New laminectomy changes at L2-3 with gas in the posterior epidural space. Recommend correlation w ith recent intervention. If the surgery is done within 7-10 days week, the gas may be postsurgical in nature versus if the patient has a recent lumbar puncture. If this has been greater than a this time frame, fluid aspiration may be beneficial in this patient. Neurosurgical consultation advised. 2. Fracture of the L2 spinous process. POS: BEENA
[2018-03-12] MEDS ORDERED: Donnatal Elixir 16.2 MG/5 ML UDCUP ONE (20:00)
[2018-03-12] MEDS ORDERED: Lidocaine Viscous Sol 2% 15 ml UD Cup ONE (20:00)
[2018-03-12] MEDS ORDERED: Mag-Al Plus 1200 MG/1200 MG/120 MG/30 ML UDCUP ONE (20:00)
== END 2018-03-12 20:10 | disposition home or self-care (01) ==
LOC: MADERS 14:56
DX: M54.5 Low back pain (principal); I34.1 Nonrheumatic mitral (valve) prolapse; I10 Essential (primary) hypertension; E11.9 Type 2 diabetes mellitus without complications; G47.30 Sleep apnea, unspecified; Z79.899 Other long term (current) drug therapy; Z46.6 Encounter for fitting and adjustment of urinary device
CPT/HCPCS: 36415; 72131; 80053; 81003; 81015; 83690; 85025

== ENCOUNTER 2018-05-16 18:09 | Emergency (ER) | payer MEDICARE ==
[2018-05-16] MEDS ORDERED: methylPREDNISolone Sod Succ/PF 125 MG/2 ML VIAL ONE (19:04)
[2018-05-16] MEDS ORDERED: Morphine 10 MG/ML VIAL ONE (19:04)
== END 2018-05-16 19:48 | disposition home or self-care (01) ==
LOC: MADERS 18:09
DX: M54.5 Low back pain (principal); G47.30 Sleep apnea, unspecified; I34.1 Nonrheumatic mitral (valve) prolapse; I10 Essential (primary) hypertension; E11.9 Type 2 diabetes mellitus without complications; Z79.899 Other long term (current) drug therapy
CPT/HCPCS: 96372; J2270; J2930

== ENCOUNTER 2018-06-14 16:37 | Inpatient (IN) | payer MEDICARE ==
[2018-06-14] MEDS ORDERED: HYDROcodone/Acetaminophen 5/325 mg Tablet PO PRN (19:34)
[2018-06-14] MEDS ORDERED: Nitroglycerin 0.4 MG TAB (25 Tab Bottle) SL PRN (19:40)
[2018-06-14] MEDS: Baclofen 10 MG TAB PO SCH (21:46)
[2018-06-14] MEDS: Amiodarone 200 MG TAB PO SCH (21:46)
[2018-06-14] MEDS: Rosuvastatin 10 MG TAB PO SCH (21:46)
[2018-06-14] MEDS: Finasteride 5 MG TAB PO SCH (21:46)
[2018-06-14] MEDS: Tamsulosin HCl 0.4 MG CAP PO SCH (21:47)
[2018-06-14] MEDS: HYDROcodone/Acetaminophen 5/325 mg Tablet PO PRN (21:47)
[2018-06-15] MEDS: Melatonin 3 MG TAB PO PRN ×2 (00:08→20:49)
[2018-06-15 05:08] LABS: #Basophils 0.1 thou/uL (0.0-0.2); #Eosinphils 0.2 thou/uL (0.0-0.7); #Monocytes 0.9 thou/uL (0.11-0.59); #Neutrophils 4.1 thou/uL (1.40-6.50); %Basophils 1.4 % (0.0-1.0); %Eosinophils 3.2 % (0.0-10.0); %Lymphocytes 26.9 % (21.0-51.0); %Monocytes 12.2 % (0.0-10.0); %Neutrophils 56.3 % (42.0-75.0); Hemoglobin 10.9 g/dL (14.0-18.0); Mean Corpuscular HGB CONC 34.5 g/dL (32.0-36.0); Mean Corpuscular Hemoglobin 31.8 pg (27.0-31.0); Mean Corpuscular Volume 92.1 fL (78.0-98.0); Mean Platelet Volume 8.9 fL (7.4-10.4); Platelet Count 248 thou/uL (130-400); RBC Distribution Width 12.5 % (11.5-14.5); Red Blood Cell (RBC) Count 3.44 mill/uL (4.70-6.10); White Blood Cell (WBC) Count 7.2 thou/uL (4.8-10.8)
[2018-06-15 05:19] LABS: ALT (SGPT) 38 U/L (8-55); AST (SGOT) 29 U/L (5-34); Alkaline Phosphatase 141 U/L (40-150); Anion Gap 15 mmol/L (10-20); BUN (Urea Nitrogen) 22 mg/dL (8.4-25.7); Bilirubin, Total 0.9 mg/dL (0.2-1.2); Calc. Creatinine Clearance 71 mL/min (70-130); Calcium 8.6 mg/dL (7.8-10.44); Carbon Dioxide 29 mmol/L (23-31); Chloride 92 mmol/L (98-107); Estimated GFR-MDRD 51; Globulin 2.4 g/dL (2.4-3.5); Glucose 165 mg/dL (83-110); Potassium 3.1 mmol/L (3.5-5.1); Protein, Total 5.4 g/dL (5.8-8.1); Sodium 133 mmol/L (136-145)
[2018-06-15] MEDS ORDERED: Potassium Chloride 20 MEQ TAB PO SCH (08:00)
[2018-06-15] MEDS: Aspirin 325 MG TAB PO SCH (09:03)
[2018-06-15] MEDS: Lisinopril 5 MG TAB PO SCH (09:03)
[2018-06-15] MEDS: Furosemide 40 MG TAB PO SCH (09:05)
[2018-06-15] MEDS: Amiodarone 200 MG TAB PO SCH ×2 (09:05→20:57)
[2018-06-15] MEDS: Potassium Chloride 20 MEQ TAB PO SCH (17:27)
--- NOTE | 2018-06-15 19:34 | HP ---
REASON FOR ADMISSION: Generalized weakness and deconditioning, status post CABG. HISTORY OF PRESENT ILLNESS: This is a 78-year-old male with history of type 2 diabetes, coronary artery disease, hypertension, cerebrovascular disease, renal insufficiency, and chronic back pain who presented to [facility] on 06/06/2018, with complaint of chest pain. The patient was admitted for treatment of a non-ST elevation CO and Cardiology was consulted. The patient underwent catheterization on the same day and was found to have multivessel disease with 70% stenosis of the LMCA, LAD, left circumflex, and 50% stenosis of the right coronary artery. Dr. Mercado was then consulted with Cardiothoracic Surgery for consideration for CABG procedure. Four vessel CABG was performed the next day. He was stabilized in the intensive care unit until he was able to be transferred to the floor. The patient has had a number of postoperative complications including urinary retention as well as volume overload. Of note, the patient does not have any history of congestive heart failure and his ejection fraction is noted to be between 45% and 55%. Cardiology continued to follow him and diuresed him with Lasix and then subsequently had to start him on amiodarone due to some postoperative atrial fibrillation that the patient sustained. Additionally, the patient has had issues with urinary retention. He does have a history of enlarged prostate for which he normally takes Proscar. The patient was started back on his home medication in addition to Flomax and urinary catheter was placed. Dr. Ware evaluated the patient and noted that there had been some prior trauma to the urethra due to traumatic catheterization while he was in the intensive care unit. Recommendation from Dr. Ware was to do a voiding trail prior to discharge, but the patient refused. The patient was then deemed stable for transfer to [facility] for planned PT and OT. The patient was seen today and expressed his frustration over number of concerns. The patient states he normally takes two muscle relaxers at night and not just one. These were prescribed initially from his back doctor. He states he has been having more right low back pain since he has been lying in the bed. The patient also complains of constipation and is requesting a laxative. Additionally, the patient complains of his current diet that is ordered and expressing concern over some of the restrictions there. The patient complains of feeling weak and tired with ambulation, although was able to walk up and down the hallways today with assistance. He denies any chest pain at this time, but does continued to have some weakness. He denies any fever. He has been tolerating his diet without any issues. PAST MEDICAL HISTORY: 1. Coronary artery disease, status post CABG on 06/08/2018. 2. Type 2 diabetes. 3. Gastroesophageal reflux disease. 4. Obstructive sleep apnea. 5. Hypertension. 6. Hypogonadism. 7. Benign prostatic hyperplasia. 8. History of CVA in 2004. 9. Irritable bowel syndrome. 10. Mitral valve prolapse. 11. Renal insufficiency. 12. Chronic back pain. 13. Lumbar degenerative disk disease. PAST SURGICAL HISTORY: 1. Four-vessel coronary artery bypass grafting done on 06/08/2018. 2. Herniated disk repair. 3. Bilateral knee surgery. 4. Bilateral shoulder surgery. 5. Prostate surgery. 6. Hemorrhoid surgery. 7. History of PFO closure. 8. Lumbar laminectomy done in 02/2018. FAMILY HISTORY: Noncontributory. SOCIAL HISTORY: The patient has been . He lives at home with his . He is a nonsmoker. Does not drink alcohol or use illicit drugs. He was previously living independently. He is a full code. ALLERGIES: THE PATIENT REPORTS MULTIPLE ALLERGIES TO NSAIDS WELL RANITIDINE, PHENERGAN, DICLOFENAC, NIACIN, AND GABAPENTIN. CURRENT MEDICATIONS: 1. Hydrocodone 5/325, 1 to 2 tablets every 4 hours as needed. 2. Amiodarone 400 mg twice daily for 6 days followed by 200 mg daily thereafter. 3. Aspirin 325 mg daily. 4. Baclofen 10 mg nightly. 5. Dulcolax 10 mg twice daily as needed. 6. Proscar 5 mg nightly. 7. Lasix 40 mg daily. 8. Glipizide 5 mg daily. 9. Lisinopril 2.5 mg daily. 10. Melatonin 9 mg nightly. 11. Metoprolol XL 25 mg daily. 12. Nitroglycerine 0.4 mg sublingual every 5 minutes as needed. 13. Pantoprazole 40 mg twice daily. 14. Potassium chloride 20 mEq once daily. 15. Rosuvastatin 20 mg once nightly. 16. Tamsulosin 0.4 mg once nightly. REVIEW OF SYSTEMS: A 10-point review of systems was completed and is negative other than as mentioned above. PHYSICAL EXAMINATION: VITAL SIGNS: The patient's weight is 245 pounds. His temperature is 97.9, blood pressure is 108/53, heart rate is 70, respirations 18, O2 saturation is 94% on room air. GENERAL: He is alert and oriented, in no apparent distress. He is cooperative, somewhat agitated at times. HEENT: Oropharynx is moist. Pupils are equally round and reactive to light. NECK: Supple without lymphadenopathy or thyromegaly. HEART: Regular rate and rhythm. Positive for sternotomy incision that is well approximated. No drainage or erythema. ABDOMEN: Mildly distended with positive bowel sounds. Negative for any tenderness to palpation, rebound, or guarding. GENITOURINARY: Mild scrotal edema with urinary catheter in place. EXTREMITIES: Lower extremities significant for 1+ pitting edema in the bilateral lower extremities. They are otherwise well perfused with brisk cap refill. NEUROLOGIC: Cranial nerves 2 through 12 are grossly intact. Positive for some generalized weakness and mild muscle atrophy. PSYCHIATRIC: The patient is mildly agitated but otherwise with appropriate affect. LABS AND IMAGING: CBC with white blood cell count of 7.2, hemoglobin of 10.9, hematocrit of 31.6, platelets 248. Sodium is 133, potassium is 3.1, chloride is 92, bicarbonate is 29, BUN 22, creatinine is 1.35, glucose is 165. ASSESSMENT AND PLAN: 1. Generalized weakness and deconditioning. The patient will be admitted to swing bed for planned physical therapy and occupational therapy until he is ready to be discharged to home. Attempted to discuss discharge planning with the patient today, but he was undecided as to whether or not he would home healthcare or not. I encouraged the patient to ambulate as often as able in an effort to minimize his further risk of complications. 2. Coronary artery disease, status post coronary artery bypass grafting of 4 vessels. The patient will be continued on his current medications and we will work with Nursing on arranging followup with his cardiothoracic surgeon as well as manager ethics. 3. Postoperative atrial fibrillation. The patient will be continued on his amiodarone on his current dose for a total of 6 days and then transition to 200 mg daily with plan to stop after 30 days per Cardiology recommendations. 4. Urinary retention with history of benign prostatic hyperplasia. The patient will continue with his Alcaraz catheter with plan to do a voiding trail in the next week. We will arrange followup with his urologist and continue the patient on his two benign prostatic hypertrophy medications. 5. Hypokalemia. The patient continues to be diuresed with Lasix and potassium is still low today. We will increase his potassium dose to twice daily. 6. Renal insuffiencey. I suspect this is likely chronic, but also related to his diuresis. We will continue to monitor this closely. 7. Hyponatremia. As above this is likely secondary to his ongoing diuresis. We will continue to monitor. It is noted to be improved today. 8. Volume overload. We will continue with Lasix daily until it is resolved. 9. Constipation. The patient was made aware that he does have stool softener and laxative available to him. We will add fiber as requested. 10. Hypertension, stable. We will continue on his home medications. 11. Chronic back pain. I advised the patient that I cannot prescribe two different muscle relaxers to be given simultaneously as this is not safe. We will continue him on his Baclofen nightly. We will follow up outpatient with his back surgeon as needed and use a heating pad p.r.n. for pain. 12. Type 2 diabetes. The patient according to his labs seems to be having some hyperglycemic episodes. We have advised him on [employer] diet and Dietary has met with him as well. We will consider increase his glipizide as needed. For now, we will check morning fasting glucose. DISPOSITION: Anticipate the patient will need at least a week or two of therapy before he can be discharged to home, but we will need to reassess weekly. CODE STATUS: The patient is full-code. DVT PROPHYLAXIS: He will be on SCDs. Job ID: [id number] [facility]
[2018-06-15] MEDS: HYDROcodone/Acetaminophen 5/325 mg Tablet PO PRN (20:48)
[2018-06-15] MEDS: Baclofen 10 MG TAB PO SCH (20:50)
[2018-06-15] MEDS: Finasteride 5 MG TAB PO SCH (20:50)
[2018-06-15] MEDS: Tamsulosin HCl 0.4 MG CAP PO SCH (20:50)
[2018-06-15] MEDS: Rosuvastatin 10 MG TAB PO SCH (20:57)
[2018-06-16 05:17] LABS: Anion Gap 15 mmol/L (10-20); BUN (Urea Nitrogen) 26 mg/dL (8.4-25.7); Calc. Creatinine Clearance 66 mL/min (70-130); Calcium 8.9 mg/dL (7.8-10.44); Carbon Dioxide 31 mmol/L (23-31); Chloride 92 mmol/L (98-107); Estimated GFR-MDRD 48; Glucose 143 mg/dL (83-110); Potassium 3.7 mmol/L (3.5-5.1); Sodium 134 mmol/L (136-145)
[2018-06-16 05:28] LABS: Magnesium 2.2 mg/dL (1.6-2.6)
[2018-06-16] MEDS: Aspirin 325 MG TAB PO SCH (08:36)
[2018-06-16] MEDS: Calcium Polycarbophil 625 MG TAB PO SCH (08:36)
[2018-06-16] MEDS: Amiodarone 200 MG TAB PO SCH ×2 (08:36→20:18)
[2018-06-16] MEDS: Potassium Chloride 20 MEQ TAB PO SCH ×2 (08:36→16:54)
[2018-06-16] MEDS: Lisinopril 5 MG TAB PO SCH (08:37)
[2018-06-16] MEDS: Furosemide 40 MG TAB PO SCH (08:38)
[2018-06-16] MEDS: Bisacodyl 5 MG TAB PO PRN (10:43)
[2018-06-16] MEDS: Nystatin Cream 15 GM TUBE TOP SCH ×2 (16:54→20:23)
[2018-06-16] MEDS: Rosuvastatin 10 MG TAB PO SCH (20:17)
[2018-06-16] MEDS: Tamsulosin HCl 0.4 MG CAP PO SCH (20:17)
[2018-06-16] MEDS: Baclofen 10 MG TAB PO SCH (20:18)
[2018-06-16] MEDS: Finasteride 5 MG TAB PO SCH (20:19)
[2018-06-16] MEDS: HYDROcodone/Acetaminophen 5/325 mg Tablet PO PRN (20:24)
[2018-06-17] MEDS: HYDROcodone/Acetaminophen 5/325 mg Tablet PO PRN (02:20)
[2018-06-17] MEDS: Furosemide 40 MG TAB PO SCH (08:59)
[2018-06-17] MEDS: Aspirin 325 MG TAB PO SCH (08:59)
[2018-06-17] MEDS: Potassium Chloride 20 MEQ TAB PO SCH ×2 (08:59→17:24)
[2018-06-17] MEDS: Lisinopril 5 MG TAB PO SCH (08:59)
[2018-06-17] MEDS: Amiodarone 200 MG TAB PO SCH ×2 (09:01→20:50)
[2018-06-17] MEDS: Nystatin Cream 15 GM TUBE TOP SCH ×2 (09:02→20:40)
[2018-06-17] MEDS: Calcium Polycarbophil 625 MG TAB PO SCH ×3 (12:38→12:40)
[2018-06-17] MEDS ORDERED: Ondansetron ODT 4 MG TAB PO SCH (20:30)
[2018-06-17] MEDS: Baclofen 10 MG TAB PO SCH (20:40)
[2018-06-17] MEDS: Melatonin 3 MG TAB PO PRN (20:50)
[2018-06-17] MEDS: Rosuvastatin 10 MG TAB PO SCH (20:50)
[2018-06-17] MEDS: Finasteride 5 MG TAB PO SCH (20:51)
[2018-06-17] MEDS: Tamsulosin HCl 0.4 MG CAP PO SCH (20:51)
[2018-06-17] MEDS: Bisacodyl 5 MG TAB PO PRN (20:51)
[2018-06-18] MEDS: Aspirin 325 MG TAB PO SCH (08:32)
[2018-06-18] MEDS: Docusate 100 MG CAP PO PRN (08:32)
[2018-06-18] MEDS: Potassium Chloride 20 MEQ TAB PO SCH (08:33)
[2018-06-18] MEDS: Calcium Polycarbophil 625 MG TAB PO SCH (08:33)
[2018-06-18] MEDS: Lisinopril 5 MG TAB PO SCH (08:33)
[2018-06-18] MEDS: Amiodarone 200 MG TAB PO SCH ×2 (08:34→22:16)
[2018-06-18] MEDS: Furosemide 40 MG TAB PO SCH (08:34)
[2018-06-18] MEDS: Nystatin Cream 15 GM TUBE TOP SCH ×2 (08:34→22:17)
[2018-06-18 10:25] LABS: Anion Gap 15 mmol/L (10-20); BUN (Urea Nitrogen) 23 mg/dL (8.4-25.7); Calc. Creatinine Clearance 61 mL/min (70-130); Calcium 8.8 mg/dL (7.8-10.44); Carbon Dioxide 24 mmol/L (23-31); Chloride 95 mmol/L (98-107); Estimated GFR-MDRD 43; Glucose 227 mg/dL (83-110); Potassium 4.4 mmol/L (3.5-5.1); Sodium 130 mmol/L (136-145)
[2018-06-18] MEDS ORDERED: Mag-Al Plus 1200 MG/1200 MG/120 MG/30 ML UDCUP PO PRN (20:48)
[2018-06-18] MEDS: Finasteride 5 MG TAB PO SCH (22:17)
[2018-06-18] MEDS: Baclofen 10 MG TAB PO SCH (22:17)
[2018-06-18] MEDS: Rosuvastatin 10 MG TAB PO SCH (22:17)
[2018-06-18] MEDS: Melatonin 3 MG TAB PO PRN (22:18)
[2018-06-18] MEDS: Tamsulosin HCl 0.4 MG CAP PO SCH (22:18)
[2018-06-19] MEDS: Lisinopril 5 MG TAB PO SCH (08:55)
[2018-06-19] MEDS: Aspirin 325 MG TAB PO SCH (08:55)
[2018-06-19] MEDS: Calcium Polycarbophil 625 MG TAB PO SCH (08:55)
[2018-06-19] MEDS: Amiodarone 200 MG TAB PO SCH ×2 (08:55→21:31)
[2018-06-19] MEDS: Nystatin Cream 15 GM TUBE TOP SCH ×2 (08:57→21:33)
[2018-06-19] MEDS: Tamsulosin HCl 0.4 MG CAP PO SCH (21:30)
[2018-06-19] MEDS: Finasteride 5 MG TAB PO SCH (21:30)
[2018-06-19] MEDS: Baclofen 10 MG TAB PO SCH (21:30)
[2018-06-19] MEDS: Rosuvastatin 10 MG TAB PO SCH (21:30)
[2018-06-19] MEDS: Melatonin 3 MG TAB PO PRN (21:38)
[2018-06-19] MEDS: Docusate 100 MG CAP PO PRN (22:11)
[2018-06-19] MEDS: Bisacodyl 5 MG TAB PO PRN (22:27)
[2018-06-20] MEDS: Nystatin Cream 15 GM TUBE TOP SCH ×2 (08:36→20:57)
[2018-06-20] MEDS: Calcium Polycarbophil 625 MG TAB PO SCH (08:36)
[2018-06-20] MEDS: Aspirin 325 MG TAB PO SCH (08:36)
[2018-06-20] MEDS: Lisinopril 5 MG TAB PO SCH (08:36)
[2018-06-20] MEDS: Amiodarone 200 MG TAB PO SCH (08:37)
[2018-06-20] MEDS: Bisacodyl 5 MG TAB PO PRN (12:43)
[2018-06-20] MEDS: Docusate 100 MG CAP PO PRN (12:43)
[2018-06-20] MEDS: Rosuvastatin 10 MG TAB PO SCH (20:55)
[2018-06-20] MEDS: Tamsulosin HCl 0.4 MG CAP PO SCH (20:56)
[2018-06-20] MEDS: Finasteride 5 MG TAB PO SCH (20:56)
[2018-06-20] MEDS: Baclofen 10 MG TAB PO SCH (20:56)
[2018-06-21] MEDS ORDERED: Baclofen 10 MG TAB PO SCH (04:30)
[2018-06-21] MEDS: Lisinopril 5 MG TAB PO SCH (08:20)
[2018-06-21] MEDS: Aspirin 325 MG TAB PO SCH (08:21)
[2018-06-21] MEDS: Amiodarone 200 MG TAB PO SCH (08:21)
[2018-06-21] MEDS: Calcium Polycarbophil 625 MG TAB PO SCH (08:21)
[2018-06-21] MEDS: Nystatin Cream 15 GM TUBE TOP SCH ×2 (08:21→20:14)
[2018-06-21] MEDS: Docusate 100 MG CAP PO PRN (10:54)
[2018-06-21] MEDS: Bisacodyl 5 MG TAB PO PRN (10:56)
[2018-06-21] MEDS ORDERED: Furosemide 20 MG TAB PO SCH (15:00)
[2018-06-21] MEDS: Tamsulosin HCl 0.4 MG CAP PO SCH (20:13)
[2018-06-21] MEDS: Melatonin 3 MG TAB PO PRN (20:13)
[2018-06-21] MEDS: Rosuvastatin 10 MG TAB PO SCH (20:14)
[2018-06-21] MEDS: Finasteride 5 MG TAB PO SCH (20:14)
[2018-06-21] MEDS: Baclofen 10 MG TAB PO SCH (20:14)
[2018-06-22 05:01] LABS: #Basophils 0.1 thou/uL (0.0-0.2); #Eosinphils 0.2 thou/uL (0.0-0.7); #Lymphocytes 2.3 thou/uL (1.20-3.40); #Monocytes 0.9 thou/uL (0.11-0.59); #Neutrophils 6.7 thou/uL (1.40-6.50); %Basophils 0.8 % (0.0-1.0); %Eosinophils 1.5 % (0.0-10.0); %Lymphocytes 22.8 % (21.0-51.0); %Monocytes 9.1 % (0.0-10.0); %Neutrophils 65.8 % (42.0-75.0); Hemoglobin 11.1 g/dL (14.0-18.0); Mean Corpuscular HGB CONC 33.5 g/dL (32.0-36.0); Mean Corpuscular Hemoglobin 31.2 pg (27.0-31.0); Mean Corpuscular Volume 93.1 fL (78.0-98.0); Mean Platelet Volume 7.7 fL (7.4-10.4); Platelet Count 313 thou/uL (130-400); RBC Distribution Width 12.7 % (11.5-14.5); Red Blood Cell (RBC) Count 3.54 mill/uL (4.70-6.10); White Blood Cell (WBC) Count 10.2 thou/uL (4.8-10.8)
[2018-06-22 05:19] LABS: ALT (SGPT) 22 U/L (8-55); AST (SGOT) 21 U/L (5-34); Albumin 3.3 g/dL (3.4-4.8); Alkaline Phosphatase 131 U/L (40-150); Anion Gap 13 mmol/L (10-20); BUN (Urea Nitrogen) 22 mg/dL (8.4-25.7); Bilirubin, Total 0.5 mg/dL (0.2-1.2); Calc. Creatinine Clearance 58 mL/min (70-130); Calcium 8.9 mg/dL (7.8-10.44); Carbon Dioxide 26 mmol/L (23-31); Chloride 101 mmol/L (98-107); Estimated GFR-MDRD 41; Globulin 2.6 g/dL (2.4-3.5); Glucose 139 mg/dL (83-110); Potassium 4.3 mmol/L (3.5-5.1); Protein, Total 5.9 g/dL (5.8-8.1); Sodium 136 mmol/L (136-145)
[2018-06-22] MEDS: Lisinopril 5 MG TAB PO SCH (08:51)
[2018-06-22] MEDS: Polyethylene Glycol 3350 17 GM Packet PO SCH ×2 (08:51→08:56)
[2018-06-22] MEDS: Amiodarone 200 MG TAB PO SCH (08:51)
[2018-06-22] MEDS: Furosemide 20 MG TAB PO SCH (08:52)
[2018-06-22] MEDS: Calcium Polycarbophil 625 MG TAB PO SCH (08:52)
[2018-06-22] MEDS: Aspirin 325 MG TAB PO SCH (08:53)
[2018-06-22] MEDS: Nystatin Cream 15 GM TUBE TOP SCH ×2 (08:53→20:28)
[2018-06-22] MEDS: Baclofen 10 MG TAB PO SCH (20:25)
[2018-06-22] MEDS: Tamsulosin HCl 0.4 MG CAP PO SCH (20:25)
[2018-06-22] MEDS: Rosuvastatin 10 MG TAB PO SCH (20:25)
[2018-06-22] MEDS: Finasteride 5 MG TAB PO SCH (20:27)
[2018-06-22] MEDS: Melatonin 3 MG TAB PO PRN (22:06)
[2018-06-23] MEDS: Polyethylene Glycol 3350 17 GM Packet PO SCH (08:15)
[2018-06-23] MEDS: Lisinopril 5 MG TAB PO SCH (08:16)
[2018-06-23] MEDS: Amiodarone 200 MG TAB PO SCH (08:16)
[2018-06-23] MEDS: Calcium Polycarbophil 625 MG TAB PO SCH (08:16)
[2018-06-23] MEDS: Furosemide 20 MG TAB PO SCH (08:16)
[2018-06-23] MEDS: Aspirin 325 MG TAB PO SCH (08:16)
[2018-06-23] MEDS: Nystatin Cream 15 GM TUBE TOP SCH ×2 (08:17→21:01)
[2018-06-23] MEDS: Finasteride 5 MG TAB PO SCH (21:01)
[2018-06-23] MEDS: Rosuvastatin 10 MG TAB PO SCH (21:01)
[2018-06-23] MEDS: Baclofen 10 MG TAB PO SCH (21:01)
[2018-06-23] MEDS: Tamsulosin HCl 0.4 MG CAP PO SCH (21:02)
[2018-06-24] MEDS: Melatonin 3 MG TAB PO PRN (00:02)
[2018-06-24 07:19] VITALS: BP 132/61; TEMP 97.6
[2018-06-24] MEDS: Furosemide 20 MG TAB PO SCH (08:01)
[2018-06-24] MEDS: Aspirin 325 MG TAB PO SCH (08:01)
[2018-06-24] MEDS: Calcium Polycarbophil 625 MG TAB PO SCH (08:01)
[2018-06-24] MEDS: Amiodarone 200 MG TAB PO SCH (08:02)
[2018-06-24] MEDS: Lisinopril 5 MG TAB PO SCH (08:02)
[2018-06-24] MEDS: Nystatin Cream 15 GM TUBE TOP SCH (08:03)
[2018-06-24] MEDS: Polyethylene Glycol 3350 17 GM Packet PO SCH (08:03)
[2018-06-24 12:12] VITALS: BMI 34.0
--- NOTE | 2018-06-25 15:15 | DIS ---
DATE OF ADMISSION: 06/14/2018 DATE OF DISCHARGE: 06/24/2018 PRIMARY DIAGNOSES: Generalized weakness and deconditioning. SECONDARY DIAGNOSES: 1. Status post coronary artery bypass grafting x 4. 2. Acute urinary retention. 3. Volume overload. 4. Chronic kidney disease with acute renal insufficiency. 5. Type 2 diabetes. 6. Hypokalemia. 7. Coronary artery disease. 8. Chronic back pain. 9. Hypertension. 10. Postoperative atrial fibrillation. HOSPITAL COURSE: This is a 78-year-old male with multiple medical problems, who was initially admitted to [facility] with chest pain. He was found to have a [id number] PR and subsequently underwent a 4-vessel coronary artery bypass grafting on June 08. The patient postoperatively had complications with paroxysmal atrial fibrillation that was treated with amiodarone as well as urinary retention which was treated with medication and indwelling Alcaraz catheter. The patient had to be diuresed due to some volume overload, but was noted to have a normal ejection fraction. The patient was transferred to [facility] on 06/14/2018 for PT and OT due to ongoing generalized weakness and deconditioning due to prolonged hospitalization. The patient has done well from a mobility standpoint, and by day of discharge, he has been ambulatory to the gym and back without assistance as well as independent on ADLs without too much instability compared to his baseline. The patient was able to have his Alcaraz catheter discontinued last weekend and has had no issues with urination since then. He does have scheduled followup visit with Dr. Ware in regard to this matter. Otherwise, the patient's volume overload responded well to oral Lasix, which is able to be discontinued by day of discharge. The patient was continued on his amiodarone per Cardiology recommendations for the postoperative atrial fibrillation that he had. He is going to continue this for a total of 30 days and then stop. The patient does have a followup scheduled with his shutdown planner within the next 1 to 2 weeks. MEDICATIONS UPON DISCHARGE: 1. Amiodarone 200 mg daily. 2. Aspirin 325 mg daily. 3. Baclofen 10 mg nightly. 4. Proscar 5 mg nightly. 5. Glipizide 5 mg daily. 6. Lisinopril 2.5 mg daily. 7. Metoprolol 25 mg daily. 8. Nitroglycerin 0.4 mg sublingual every 5 minutes as needed. 9. Pantoprazole 40 mg twice daily. 10. Atorvastatin 40 mg once daily. 11. Tamsulosin 0.4 mg once daily. Of note, the patient was made aware of the changes to his blood pressure medications. The patient was told to stop his previously prescribed atenolol, lisinopril, hydrochlorothiazide, and aspirin 81 mg. He is now to be taking the metoprolol XL and the lisinopril as instructed by the shutdown planner. He was also noted to be taking the aspirin 325 mg instead of 81 mg. Additionally, he was reminded of his added prostate medication with tamsulosin that he should continue until he sees his urologist. ACTIVITY UPON DISCHARGE: Resume normal activity level. DIET UPON DISCHARGE: Diabetic diet, heart healthy diet. FOLLOWUP: The patient is to see Dr. Mercado today and has followup scheduled with Urology and Cardiology thereafter. He will see his primary care physician in 2 weeks. The patient already has an appointment scheduled with Cardiac Rehab, which he intends to keep. Job ID: [id number] [facility] FACILITYGaby
== END 2018-06-24 12:20 | disposition home or self-care (01) | DRG 303 ==
LOC: MADMS 17:26
PROVIDERS: ADMIT Family Medicine; ATTEND Family Medicine
DX: I25.10 Atherosclerotic heart disease of native coronary artery without angina pectoris (principal); E87.1 Hypo-osmolality and hyponatremia; E11.9 Type 2 diabetes mellitus without complications; I10 Essential (primary) hypertension; G89.29 Other chronic pain; M54.9 Dorsalgia, unspecified; I48.91 Unspecified atrial fibrillation; N40.1 Benign prostatic hyperplasia with lower urinary tract symptoms; R33.8 Other retention of urine; E87.6 Hypokalemia; N28.9 Disorder of kidney and ureter, unspecified; E87.70 Fluid overload, unspecified; K59.00 Constipation, unspecified; M51.36 Other intervertebral disc degeneration, lumbar region; K21.9 Gastro-esophageal reflux disease without esophagitis; G47.33 Obstructive sleep apnea (adult) (pediatric); K58.9 Irritable bowel syndrome, unspecified; Z86.73 Personal history of transient ischemic attack (TIA), and cerebral infarction without residual deficits; Z95.1 Presence of aortocoronary bypass graft; Z98.890 Other specified postprocedural states; Z88.8 Allergy status to other drugs, medicaments and biological substances; Z79.82 Long term (current) use of aspirin; Z79.899 Other long term (current) drug therapy
CPT/HCPCS: 36415; 80048; 80053; 83735; 85025

== ENCOUNTER 2018-11-12 22:36 | Emergency (ER) | payer MEDICARE ==
[2018-11-12 23:08] LABS: Bilirubin Negative (Negative); Blood, Urine Negative (Negative); Clarity Clear (Clear); Glucose, Urine (Dipstick) Negative (Negative); Leukocyte Negative (Negative); Nitrite Negative (Negative); Protein, Urine (Dipstick) Negative (Neg-Trace); Urobilinogen 0.2 mg/dL (0.2-1.0)
[2018-11-12] MEDS ORDERED: Ciprofloxacin 500 MG TAB ONE (23:35)
== END 2018-11-12 23:37 | disposition home or self-care (01) ==
LOC: MADERS 22:36
DX: N34.1 Nonspecific urethritis (principal); M54.5 Low back pain; G89.29 Other chronic pain; G47.30 Sleep apnea, unspecified; Z86.73 Personal history of transient ischemic attack (TIA), and cerebral infarction without residual deficits; Z79.82 Long term (current) use of aspirin; Z79.899 Other long term (current) drug therapy
CPT/HCPCS: 81003; 87086; 99283

== ENCOUNTER 2019-05-09 09:25 | Outpatient (CLI) | payer MEDICARE ==
[~2019-05-09 09:25] MED LIST changes: +Iopamidol 370 76% 100 ML VIAL ONE; -Sodium Chloride 0.9% 500 ML BAG ONE
--- NOTE | 2019-05-09 11:54 | CT ---
CT ABDOMEN AND PELVIS: HISTORY: Suprapubic pain with diarrhea, x6 months. COMPARISON: 06/06/2018 CT angiogram dissection protocol. PROCEDURE: Multiple contiguous axial images were obtained and a CT of the abdomen and pelvis with IV contrast. C oronal reformats were performed. FINDINGS: Lower Chest: Trace left-sided pleural effusion. Left lower lobe consolidation may be due to atelectas is, pneumonia or aspiration. Consolidation was not present on the previous CT. Vessels: Normal caliber aorta. No periaortic fat stranding. Heart: Normal heart size. No significant pericardial fluid. Abdomen: Portal vein:Patent. Gallbladder: Mildly distended with evidence of an enhancement. Consider ultrasound to assess for chol ecystitis. Liver: within normal limits. Pancreas: within normal limits. Spleen: within normal limits. Adrenals: within normal limits. Kidneys: Symmetric enhancement. No obstructive uropathy. Exophytic 1.4 x 1.4 cm right renal cyst. Peritoneum: No ascites or free air, no fluid collection. Bowel: Limited evaluation due to the lack of oral contrast administration. No evidence of bowel obstr uction. Ileocecal junction is unremarkable. Normal caliber appendix. Scattered fecal material in a nondistended, nondilated colon. Diverticulosis without evidence of diverticulitis. Mesentery and Retroperitoneum: No enlarged mesenteric or retroperitoneal lymph nodes. Abdominal Wall: within normal limits. Pelvis: Reproductive Organs: Mildly enlarged prostate gland. Pelvis: No mass, lymphadenopathy, free air or free fluid. Bladder: within normal limits. Bones: within normal limits. IMPRESSION: 1. Left-sided pleural effusion with adjacent lung consolidation which may be due to atelectasis, pneu monia or aspiration. Correlation is recommended. Follow-up imaging in four weeks to ensure resolution. 2. Mildly distended gallbladder with gallbladder wall enhancement. Consider gallbladder ultrasound is there is concern for cholecystitis. CODE T Transcribed Date/Time: 05/09/2019 12:27 PM
== END 2019-05-09 09:26 | disposition home or self-care (01) ==
LOC: MADLAB 09:25
PROVIDERS: ATTEND Physician Assistant Medical
DX: K21.9 Gastro-esophageal reflux disease without esophagitis (principal); K52.9 Noninfective gastroenteritis and colitis, unspecified; R10.32 Left lower quadrant pain; J18.9 Pneumonia, unspecified organism; J90 Pleural effusion, not elsewhere classified; K82.8 Other specified diseases of gallbladder
CPT/HCPCS: 36415; 74177; 82565; Q9967

== ENCOUNTER 2019-07-08 11:02 | Outpatient (CLI) | payer MEDICARE ==
--- NOTE | 2019-07-08 11:25 | RAD ---
XR Chest Pa Lat STANDARD HISTORY: viral upper respiratory tract infection COMPARISON: 05/19/2016 FINDINGS: The heart size is at upper limits of normal. There are changes of median sternotomy. There is consolidation of the left lung base with accompanying effusion. The right lung is clear.
== END 2019-07-08 11:03 | disposition home or self-care (01) ==
LOC: MADRAD 11:02
PROVIDERS: ATTEND Family Medicine
DX: J06.9 Acute upper respiratory infection, unspecified (principal)
CPT/HCPCS: 71046

== ENCOUNTER 2019-07-25 11:50 | Outpatient (CLI) | payer MEDICARE ==
[2019-07-25 13:07] LABS: ALT (SGPT) 21 U/L (8-55); AST (SGOT) 20 U/L (5-34); Albumin 3.9 g/dL (3.4-4.8); Alkaline Phosphatase 94 U/L (40-110); Anion Gap 15 mmol/L (10-20); BUN (Urea Nitrogen) 18 mg/dL (8.4-25.7); Bilirubin, Total 0.3 mg/dL (0.2-1.2); Calc. Creatinine Clearance 0 mL/min (70-130); Calcium 9.5 mg/dL (7.8-10.44); Carbon Dioxide 28 mmol/L (23-31); Chloride 97 mmol/L (98-107); Estimated GFR-MDRD 59; Globulin 3.1 g/dL (2.4-3.5); Glucose 109 mg/dL (83-110); Potassium 4.5 mmol/L (3.5-5.1); Sodium 135 mmol/L (136-145)
--- NOTE | 2019-07-25 13:39 | RAD ---
XR Chest Pa Lat STANDARD HISTORY: Pleural effusion COMPARISON: 07/08/2019 FINDINGS: Changes of median sternotomy are again seen. The heart size stable. Consolidation in the le ft lung base with accompanying left effusion is stable. The right lung is clear. IMPRESSION: Stable exam.
== END 2019-07-25 11:51 | disposition home or self-care (01) ==
LOC: MADLABBHPM 11:50
PROVIDERS: ATTEND Family Medicine
DX: J90 Pleural effusion, not elsewhere classified (principal)
CPT/HCPCS: 36415; 71046; 80053

== ENCOUNTER 2019-10-08 11:38 | Outpatient (CLI) | payer MEDICARE ==
--- NOTE | 2019-10-08 12:35 | RAD ---
CHEST 2 VIEWS: Date: 10/08/2019 HISTORY: Dyspnea. COMPARISON: 07/25/2019. FINDINGS: Persistent pleural and parenchymal changes in the left base with minimal cardiomegaly. Postop midline sternotomy. Right lung is clear. IMPRESSION: Stable pleural and parenchymal changes in the left base. No significant new process. POS: [facility]
== END 2019-10-08 11:39 | disposition home or self-care (01) ==
LOC: MADRAD 11:38
PROVIDERS: ATTEND Internal Medicine Critical Care Medicine
DX: R06.00 Dyspnea, unspecified (principal)
CPT/HCPCS: 71046

== ENCOUNTER 2020-07-31 22:18 | Emergency (ER) | payer MEDICARE ==
[2020-07-31] MEDS ORDERED: TETANUS AND DIPHTHERIA TOX/PF 0.5 ML DISP.SYRIN ONE (22:40)
[2020-07-31 22:45] LABS: #Basophils 0.1 thou/uL (0.0-0.2); #Eosinphils 0.1 thou/uL (0.0-0.7); #Lymphocytes 3.2 thou/uL (1.20-3.40); #Monocytes 0.7 thou/uL (0.11-0.59); #Neutrophils 6.3 thou/uL (1.40-6.50); %Eosinophils 0.6 % (0.0-10.0); %Lymphocytes 30.5 % (21.0-51.0); Hemoglobin 16.2 g/dL (14.0-18.0); Mean Corpuscular HGB CONC 32.6 g/dL (32.0-36.0); Mean Corpuscular Hemoglobin 31.5 pg (27.0-31.0); Mean Corpuscular Volume 96.4 fL (78.0-98.0); Mean Platelet Volume 11.6 fL (7.4-10.4); Platelet Count 164 thou/uL (130-400); RBC Distribution Width 11.8 % (11.5-14.5); Red Blood Cell (RBC) Count 5.15 mill/uL (4.70-6.10); White Blood Cell (WBC) Count 10.4 thou/uL (4.8-10.8)
[2020-07-31 22:58] LABS: INR-International Normal Ratio 0.9; PTT 26.7 sec (22.9-36.1); Prothrombin Time 12.4 sec (12.0-14.7)
[2020-07-31 23:07] LABS: ALT (SGPT) 21 U/L (8-55); AST (SGOT) 22 U/L (5-34); Albumin 4.2 g/dL (3.4-4.8); Alkaline Phosphatase 86 U/L (40-110); Anion Gap 19 mmol/L (10-20); BUN (Urea Nitrogen) 22 mg/dL (8.4-25.7); Bilirubin, Total 0.4 mg/dL (0.2-1.2); CK (CPK) 84 U/L (30-200); Calc. Creatinine Clearance 0 mL/min (70-130); Calcium 9.2 mg/dL (7.8-10.44); Carbon Dioxide 22 mmol/L (23-31); Chloride 102 mmol/L (98-107); Glucose 141 mg/dL (83-110); Potassium 4.4 mmol/L (3.5-5.1); Protein, Total 7.2 g/dL (5.8-8.1); Sodium 139 mmol/L (136-145)
[2020-07-31] MEDS ORDERED: Sodium Chloride 0.9% 1,000 ML ONE (23:10)
[2020-07-31 23:43] LABS: Bilirubin Negative (Negative); Blood, Urine Negative (Negative); Clarity Clear (Clear); Glucose, Urine (Dipstick) Negative (Negative); Ketone, Urine Negative (Negative); Leukocyte Negative (Negative); Nitrite Negative (Negative); Protein, Urine (Dipstick) Negative (Neg-Trace); Urobilinogen 0.2 mg/dL (Less than 2); pH, Urine 5.5 (5.0-9.0)
[2020-07-31 23:45] LABS: Specific Gravity, Urine Less/Equal 1.005 (1.005-1.030)
[2020-08-01 00:48] LABS: Hemoglobin 15.3 g/dL (14.0-18.0); Mean Corpuscular HGB CONC 32.4 g/dL (32.0-36.0); Mean Corpuscular Hemoglobin 31.6 pg (27.0-31.0); Mean Corpuscular Volume 97.5 fL (78.0-98.0); Mean Platelet Volume 10.8 fL (7.4-10.4); Platelet Count 142 thou/uL (130-400); RBC Distribution Width 12.1 % (11.5-14.5); Red Blood Cell (RBC) Count 4.85 mill/uL (4.70-6.10); White Blood Cell (WBC) Count 8.7 thou/uL (4.8-10.8)
[2020-08-01 00:56] LABS: INR-International Normal Ratio 0.9; PTT 27.3 sec (22.9-36.1); Prothrombin Time 12.5 sec (12.0-14.7)
[2020-08-01 01:01] LABS: MDiff Complete? YES
[2020-08-01 01:02] LABS: Lymphocytes 39 % (21-51); Monocytes 7 % (0-10); Neutrophil 53 % (42-75); Platelet Morphology Comment Appears Adequate; RBC Morphology Normal
== END 2020-08-01 02:56 | disposition home or self-care (01) ==
LOC: MADERS 22:18
DX: T63.061A Toxic effect of venom of other North and South American snake, accidental (unintentional), initial encounter (principal); I25.2 Old myocardial infarction; I49.3 Ventricular premature depolarization; I34.1 Nonrheumatic mitral (valve) prolapse; I10 Essential (primary) hypertension; G47.30 Sleep apnea, unspecified; E11.9 Type 2 diabetes mellitus without complications; Z79.82 Long term (current) use of aspirin; Z86.73 Personal history of transient ischemic attack (TIA), and cerebral infarction without residual deficits; Z79.899 Other long term (current) drug therapy
CPT/HCPCS: 80053; 81003; 82550; 84484; 85025; 85384; 85610; 85730; 86850; 86900; 86901; 90471; 90714; 93005; J7050

== ENCOUNTER 2020-09-30 20:26 | Emergency (ER) | payer MEDICARE ==
[2020-09-30] MEDS ORDERED: Ondansetron PF 4 MG/2 ML Vial ONE (21:29)
[2020-09-30] MEDS ORDERED: Sodium Chloride 0.9% 1,000 ML ONE (21:29)
[2020-09-30 21:51] LABS: #Basophils 0.1 thou/uL (0.0-0.2); #Eosinphils 0.1 thou/uL (0.0-0.7); #Lymphocytes 2.4 thou/uL (1.20-3.40); #Monocytes 0.9 thou/uL (0.11-0.59); #Neutrophils 6.6 thou/uL (1.40-6.50); %Basophils 0.7 % (0.0-1.0); %Eosinophils 0.5 % (0.0-10.0); %Lymphocytes 24.2 % (21.0-51.0); %Monocytes 8.5 % (0.0-10.0); %Neutrophils 66.1 % (42.0-75.0); Mean Corpuscular HGB CONC 31.8 g/dL (32.0-36.0); Mean Corpuscular Hemoglobin 31.2 pg (27.0-31.0); Mean Corpuscular Volume 98.1 fL (78.0-98.0); Mean Platelet Volume 11.9 fL (7.4-10.4); Platelet Count 187 thou/uL (130-400); RBC Distribution Width 12.5 % (11.5-14.5); Red Blood Cell (RBC) Count 5.15 mill/uL (4.70-6.10)
[2020-09-30 22:10] LABS: ALT (SGPT) 32 U/L (8-55); AST (SGOT) 22 U/L (5-34); Albumin 3.9 g/dL (3.4-4.8); Alkaline Phosphatase 139 U/L (40-110); Anion Gap 15 mmol/L (10-20); BUN (Urea Nitrogen) 16 mg/dL (8.4-25.7); Bilirubin, Total 0.5 mg/dL (0.2-1.2); Calc. Creatinine Clearance 0 mL/min (70-130); Calcium 9.7 mg/dL (7.8-10.44); Carbon Dioxide 24 mmol/L (23-31); Chloride 102 mmol/L (98-107); Globulin 2.6 g/dL (2.4-3.5); Glucose 147 mg/dL (83-110); Lipase 12 U/L (8-78); Potassium 4.4 mmol/L (3.5-5.1); Protein, Total 6.5 g/dL (5.8-8.1); Sodium 137 mmol/L (136-145)
[2020-09-30] MEDS ORDERED: Cefepime 2 GM VIAL ONE (22:22)
[2020-09-30] MEDS ORDERED: metroNIDAZOLE 500 MG/100 ML BAG ONE (22:22)
[2020-09-30] MEDS ORDERED: Sodium Chloride 0.9% 100 ML ONE (22:22)
[2020-09-30] MEDS ORDERED: Morphine 4 MG/ML VIAL ONE (22:33)
[2020-09-30 22:40] LABS: Bilirubin Negative (Negative); Blood, Urine Negative (Negative); Clarity Clear (Clear); Glucose, Urine (Dipstick) Negative (Negative); Ketone, Urine Negative (Negative); Leukocyte Small (Negative); Nitrite Negative (Negative); Protein, Urine (Dipstick) Negative (Neg-Trace); Urobilinogen 0.2 mg/dL (Less than 2)
[2020-09-30 22:50] LABS: RBC/HPF 0-3 HPF (0-3)
[2020-09-30 22:51] LABS: Bacteria/HPF Rare-Few HPF (None Seen); Squamous Epithelial 0-3 HPF (0-3)
[2020-10-01] MEDS ORDERED: Morphine 4 MG/ML VIAL ONE (00:20)
== END 2020-10-01 00:38 | disposition short-term general hospital (02) ==
LOC: MADERS 20:26
DX: K80.42 Calculus of bile duct with acute cholecystitis without obstruction (principal); I49.3 Ventricular premature depolarization; I49.9 Cardiac arrhythmia, unspecified; I25.2 Old myocardial infarction; G47.30 Sleep apnea, unspecified; E11.9 Type 2 diabetes mellitus without complications; I10 Essential (primary) hypertension; Z86.73 Personal history of transient ischemic attack (TIA), and cerebral infarction without residual deficits; Z79.899 Other long term (current) drug therapy; Z79.82 Long term (current) use of aspirin
CPT/HCPCS: 71045; 74176; 80053; 81003; 81015; 83605; 83690; 84484; 85025; 93005; 96365; 96367; 96375; 96376; J0692; J2270; J2405; J3490; J7050

== ENCOUNTER 2020-10-11 16:31 | Emergency (ER) | payer MEDICARE ==
[~2020-10-11 16:31] MED LIST changes: -Iopamidol 370 76% 100 ML VIAL ONE; +Sodium Chloride 0.9% 1,000 ML BAG ONE
[2020-10-11 17:19] LABS: #Basophils 0.1 thou/uL (0.0-0.2); #Eosinphils 0.3 thou/uL (0.0-0.7); #Lymphocytes 2.3 thou/uL (1.20-3.40); #Monocytes 0.9 thou/uL (0.11-0.59); #Neutrophils 6.9 thou/uL (1.40-6.50); %Basophils 1.1 % (0.0-1.0); %Eosinophils 2.9 % (0.0-10.0); %Lymphocytes 21.7 % (21.0-51.0); %Monocytes 8.1 % (0.0-10.0); %Neutrophils 66.2 % (42.0-75.0); Hemoglobin 14.4 g/dL (14.0-18.0); Mean Corpuscular HGB CONC 32.3 g/dL (32.0-36.0); Mean Corpuscular Hemoglobin 31.7 pg (27.0-31.0); Mean Corpuscular Volume 98.2 fL (78.0-98.0); Mean Platelet Volume 11.1 fL (7.4-10.4); Platelet Count 267 thou/uL (130-400); RBC Distribution Width 12.4 % (11.5-14.5); Red Blood Cell (RBC) Count 4.53 mill/uL (4.70-6.10); White Blood Cell (WBC) Count 10.5 thou/uL (4.8-10.8)
[2020-10-11 17:34] LABS: ALT (SGPT) 51 U/L (8-55); AST (SGOT) 43 U/L (5-34); Albumin 3.3 g/dL (3.4-4.8); Alkaline Phosphatase 212 U/L (40-110); Anion Gap 17 mmol/L (10-20); BUN (Urea Nitrogen) 19 mg/dL (8.4-25.7); Bilirubin, Total 0.5 mg/dL (0.2-1.2); Calc. Creatinine Clearance 0 mL/min (70-130); Calcium 9.1 mg/dL (7.8-10.44); Carbon Dioxide 19 mmol/L (23-31); Chloride 103 mmol/L (98-107); Globulin 3.1 g/dL (2.4-3.5); Glucose 159 mg/dL (83-110); Lipase 169 U/L (8-78); Potassium 4.4 mmol/L (3.5-5.1); Protein, Total 6.4 g/dL (5.8-8.1); Sodium 135 mmol/L (136-145)
[2020-10-11 18:54] LABS: Bilirubin Negative (Negative); Blood, Urine Negative (Negative); Glucose, Urine (Dipstick) Negative (Negative); Ketone, Urine Negative (Negative); Leukocyte Small (Negative); Nitrite Negative (Negative); Protein, Urine (Dipstick) Negative (Neg-Trace); Specific Gravity, Urine 1.015 (1.005-1.030); Urobilinogen 0.2 mg/dL (Less than 2)
[2020-10-11 18:59] LABS: Clarity Hazy (Clear)
[2020-10-11 19:00] LABS: Bacteria/HPF Rare-Few HPF (None Seen); RBC/HPF None Seen HPF (0-3); Squamous Epithelial 0-3 HPF (0-3); WBC/HPF 0-3 HPF (0-3)
[2020-10-11] MEDS ORDERED: Enoxaparin Sodium 100 MG/ML SYRINGE ONE (19:28)
== END 2020-10-11 21:15 | disposition short-term general hospital (02) ==
LOC: MADERS 16:31
DX: I26.99 Other pulmonary embolism without acute cor pulmonale (principal); K85.90 Acute pancreatitis without necrosis or infection, unspecified; E11.9 Type 2 diabetes mellitus without complications; I10 Essential (primary) hypertension; I25.2 Old myocardial infarction; Z86.73 Personal history of transient ischemic attack (TIA), and cerebral infarction without residual deficits; I34.1 Nonrheumatic mitral (valve) prolapse; G47.30 Sleep apnea, unspecified; Z79.899 Other long term (current) drug therapy; Z79.82 Long term (current) use of aspirin
CPT/HCPCS: 71045; 71275; 74177; 80053; 81003; 81015; 83690; 83880; 84484; 85025; 93005; 94760; 96372; J1650; J7050

== ENCOUNTER 2020-11-11 23:52 | Emergency (ER) | payer MEDICARE ==
[~2020-11-11 23:52] MED LIST changes: +Iopamidol 370 76% 125 ML VIAL FS ONE; -Sodium Chloride 0.9% 1,000 ML BAG ONE; +Sodium Chloride 0.9% 100 ML BAG ONE
[2020-11-12 00:50] LABS: INR-International Normal Ratio 3.2; Prothrombin Time 33.4 sec (12.0-14.7)
[2020-11-12 00:56] LABS: #Basophils 0.1 thou/uL (0.0-0.2); #Lymphocytes 2.5 thou/uL (1.20-3.40); #Monocytes 0.8 thou/uL (0.11-0.59); #Neutrophils 5.8 thou/uL (1.40-6.50); %Basophils 0.8 % (0.0-1.0); %Eosinophils 0.3 % (0.0-10.0); %Lymphocytes 26.8 % (21.0-51.0); %Monocytes 8.6 % (0.0-10.0); %Neutrophils 63.4 % (42.0-75.0); Hemoglobin 14.3 g/dL (14.0-18.0); Mean Corpuscular HGB CONC 31.3 g/dL (32.0-36.0); Mean Corpuscular Hemoglobin 30.8 pg (27.0-31.0); Mean Corpuscular Volume 98.5 fL (78.0-98.0); Mean Platelet Volume 12.2 fL (7.4-10.4); Platelet Count 140 thou/uL (130-400); Platelet Morphology Comment Appears Adequate; RBC Distribution Width 13.1 % (11.5-14.5); RBC Morphology Normal; Red Blood Cell (RBC) Count 4.63 mill/uL (4.70-6.10); White Blood Cell (WBC) Count 9.2 thou/uL (4.8-10.8)
[2020-11-12 01:03] LABS: ALT (SGPT) 26 U/L (8-55); AST (SGOT) 22 U/L (5-34); Albumin 4.1 g/dL (3.4-4.8); Alkaline Phosphatase 97 U/L (40-110); Anion Gap 15 mmol/L (10-20); BUN (Urea Nitrogen) 18 mg/dL (8.4-25.7); Bilirubin, Total 0.5 mg/dL (0.2-1.2); Calc. Creatinine Clearance 0 mL/min (70-130); Calcium 9.1 mg/dL (7.8-10.44); Carbon Dioxide 27 mmol/L (23-31); Chloride 103 mmol/L (98-107); Globulin 2.5 g/dL (2.4-3.5); Glucose 135 mg/dL (83-110); Potassium 4.3 mmol/L (3.5-5.1); Protein, Total 6.6 g/dL (5.8-8.1); Sodium 141 mmol/L (136-145)
== END 2020-11-12 03:51 | disposition home or self-care (01) ==
LOC: MADERS 23:52
DX: R53.1 Weakness (principal); R55 Syncope and collapse; R42 Dizziness and giddiness; I25.2 Old myocardial infarction; I49.3 Ventricular premature depolarization; E11.9 Type 2 diabetes mellitus without complications; I10 Essential (primary) hypertension; G47.30 Sleep apnea, unspecified; I34.1 Nonrheumatic mitral (valve) prolapse; I49.9 Cardiac arrhythmia, unspecified; Z86.73 Personal history of transient ischemic attack (TIA), and cerebral infarction without residual deficits; Z79.01 Long term (current) use of anticoagulants; Z79.899 Other long term (current) drug therapy; Z79.82 Long term (current) use of aspirin
CPT/HCPCS: 71275; 80053; 83880; 84484; 85025; 85610; 93005; J3490; Q9967

== ENCOUNTER 2020-11-12 16:56 | Outpatient (CLI) | payer MEDICARE ==
[2020-11-12 17:01] LABS: INR-International Normal Ratio 2.9; Prothrombin Time 31.1 sec (12.0-14.7)
== END 2020-11-12 16:57 | disposition home or self-care (01) ==
LOC: MADLAB 16:56
PROVIDERS: ATTEND Family Medicine
DX: I26.99 Other pulmonary embolism without acute cor pulmonale (principal)

== ENCOUNTER 2021-02-18 00:26 | Emergency (ER) | payer MEDICARE ==
[2021-02-18 02:31] LABS: #Basophils 0.1 thou/uL (0.0-0.2); #Eosinphils 0.1 thou/uL (0.0-0.7); #Lymphocytes 2.2 thou/uL (1.20-3.40); #Monocytes 0.9 thou/uL (0.11-0.59); %Basophils 1.1 % (0.0-1.0); %Eosinophils 1.3 % (0.0-10.0); %Lymphocytes 26.6 % (21.0-51.0); %Monocytes 10.5 % (0.0-10.0); %Neutrophils 60.6 % (42.0-75.0); Hemoglobin 14.2 g/dL (14.0-18.0); Mean Corpuscular HGB CONC 32.2 g/dL (32.0-36.0); Mean Corpuscular Hemoglobin 32.1 pg (27.0-31.0); Mean Corpuscular Volume 99.7 fL (78.0-98.0); Mean Platelet Volume 10.1 fL (7.4-10.4); Platelet Count 193 thou/uL (130-400); RBC Distribution Width 11.9 % (11.5-14.5); Red Blood Cell (RBC) Count 4.43 mill/uL (4.70-6.10); White Blood Cell (WBC) Count 8.2 thou/uL (4.8-10.8)
[2021-02-18 02:35] LABS: PTT 38.8 sec (22.9-36.1)
[2021-02-18 02:36] LABS: INR-International Normal Ratio 1.5; Prothrombin Time 18.8 sec (12.0-14.7)
[2021-02-18 02:37] LABS: D-Dimer Test 0.65 *mcg/mL (0.27-0.43)
[2021-02-18 02:48] LABS: AST (SGOT) 28 U/L (5-34); Bilirubin, Total 0.3 mg/dL (0.2-1.2); Calcium 9.2 mg/dL (7.8-10.44); Chloride 105 mmol/L (98-107); Potassium 4.4 mmol/L (3.5-5.1); Sodium 140 mmol/L (136-145)
[2021-02-18 03:11] LABS: Albumin 3.8 g/dL (3.4-4.8); Alkaline Phosphatase 123 U/L (40-110); BUN (Urea Nitrogen) 14 mg/dL (8.4-25.7); Calc. Creatinine Clearance 0 mL/min (70-130); Carbon Dioxide 27 mmol/L (23-31); Globulin 2.5 g/dL (2.4-3.5); Glucose 131 mg/dL (83-110); Lipase 13 U/L (8-78); Magnesium 2.2 mg/dL (1.6-2.6); Protein, Total 6.3 g/dL (5.8-8.1)
[2021-02-18 03:18] LABS: ALT (SGPT) 29 U/L (8-55)
[2021-02-18 03:46] LABS: Anion Gap 8 mmol/L (10-20)
== END 2021-02-18 05:40 | disposition home or self-care (01) ==
LOC: MADERS 00:26
DX: S50.311A Abrasion of right elbow, initial encounter (principal); M25.511 Pain in right shoulder; R60.0 Localized edema; R01.1 Cardiac murmur, unspecified; E11.9 Type 2 diabetes mellitus without complications; I25.2 Old myocardial infarction; I49.3 Ventricular premature depolarization; I10 Essential (primary) hypertension; Z86.711 Personal history of pulmonary embolism; Z79.01 Long term (current) use of anticoagulants; Z86.73 Personal history of transient ischemic attack (TIA), and cerebral infarction without residual deficits; W18.09XA Striking against other object with subsequent fall, initial encounter
CPT/HCPCS: 70450; 71045; 72125; 80053; 83605; 83690; 83735; 84484; 85025; 85379; 85610; 85730; 93005

== ENCOUNTER 2021-05-08 14:07 | Emergency (ER) | payer MEDICARE ==
[2021-05-08 15:10] LABS: #Basophils 0.1 thou/uL (0.0-0.2); #Eosinphils 0.1 thou/uL (0.0-0.7); #Lymphocytes 1.9 thou/uL (1.20-3.40); #Monocytes 0.7 thou/uL (0.11-0.59); #Neutrophils 5.3 thou/uL (1.40-6.50); %Eosinophils 0.7 % (0.0-10.0); %Lymphocytes 23.6 % (21.0-51.0); %Monocytes 8.1 % (0.0-10.0); %Neutrophils 66.7 % (42.0-75.0); Mean Corpuscular HGB CONC 32.6 g/dL (32.0-36.0); Mean Corpuscular Hemoglobin 31.7 pg (27.0-31.0); Mean Corpuscular Volume 97.2 fL (78.0-98.0); Platelet Count 204 thou/uL (130-400); Red Blood Cell (RBC) Count 5.05 mill/uL (4.70-6.10)
[2021-05-08 15:25] LABS: ALT (SGPT) 25 U/L (8-55); AST (SGOT) 31 U/L (5-34); Albumin 4.7 g/dL (3.4-4.8); Alkaline Phosphatase 69 U/L (40-110); Anion Gap 10 mmol/L (10-20); BUN (Urea Nitrogen) 21 mg/dL (8.4-25.7); Bilirubin, Total 0.6 mg/dL (0.2-1.2); Calc. Creatinine Clearance 0 mL/min (70-130); Calcium 9.8 mg/dL (7.8-10.44); Carbon Dioxide 28 mmol/L (23-31); Chloride 101 mmol/L (98-107); Globulin 2.6 g/dL (2.4-3.5); Glucose 152 mg/dL (83-110); Lipase 15 U/L (8-78); Potassium 4.1 mmol/L (3.5-5.1); Protein, Total 7.3 g/dL (5.8-8.1); Sodium 135 mmol/L (136-145)
== END 2021-05-08 15:38 | disposition home or self-care (01) ==
LOC: MADERS 14:07
DX: L30.9 Dermatitis, unspecified (principal); R53.1 Weakness; I10 Essential (primary) hypertension; E11.9 Type 2 diabetes mellitus without complications; E78.5 Hyperlipidemia, unspecified; I25.2 Old myocardial infarction; Z86.73 Personal history of transient ischemic attack (TIA), and cerebral infarction without residual deficits; Z79.82 Long term (current) use of aspirin; Z79.899 Other long term (current) drug therapy
CPT/HCPCS: 36415; 80053; 83690; 85025; 99284

== ENCOUNTER 2021-05-27 00:51 | Emergency (ER) | payer MEDICARE ==
[2021-05-27] MEDS ORDERED: Albuterol Sulfate 2.5 mg/3 ml Neb ONE (01:27)
[2021-05-27] MEDS ORDERED: cefTRIAXone\\ROCEPHIN 1 GM VIAL ONE (01:37)
[2021-05-27] MEDS ORDERED: Lidocaine 1% (PF) 30 ML VIAL ONE (01:37)
== END 2021-05-27 02:05 | disposition home or self-care (01) ==
LOC: MADERS 00:51
DX: J44.1 Chronic obstructive pulmonary disease with (acute) exacerbation (principal); E11.9 Type 2 diabetes mellitus without complications; E78.5 Hyperlipidemia, unspecified; I10 Essential (primary) hypertension; Z86.73 Personal history of transient ischemic attack (TIA), and cerebral infarction without residual deficits; I25.2 Old myocardial infarction; Z79.82 Long term (current) use of aspirin; Z79.899 Other long term (current) drug therapy
CPT/HCPCS: 71045; 96372; J0696; J1040; J2001; J7611

== ENCOUNTER 2021-09-12 11:58 | Outpatient (CLI) | payer MEDICARE | END 2021-09-12 11:59 | disposition home or self-care (01) | LOC: MADRAD 11:58 | PROVIDERS: ATTEND Family Medicine | DX: M54.41 Lumbago with sciatica, right side (principal); M47.816 Spondylosis without myelopathy or radiculopathy, lumbar region; Z98.1 Arthrodesis status | CPT/HCPCS: 72100 ==

== ENCOUNTER 2021-11-13 17:08 | Outpatient (CLI) | payer MEDICARE ==
[2021-11-13 17:23] LABS: Anion Gap 15 mmol/L (10-20); BUN (Urea Nitrogen) 12 mg/dL (8.4-25.7); Calc. Creatinine Clearance 0 mL/min (70-130); Calcium 9.7 mg/dL (7.8-10.44); Carbon Dioxide 27 mmol/L (23-31); Chloride 100 mmol/L (98-107); Estimated GFR 79; Glucose 77 mg/dL (83-110); Potassium 4.5 mmol/L (3.5-5.1); Sodium 137 mmol/L (136-145)
== END 2021-11-13 17:09 | disposition home or self-care (01) ==
LOC: MADLAB 17:08
PROVIDERS: ATTEND Family Medicine
DX: R55 Syncope and collapse (principal); E87.1 Hypo-osmolality and hyponatremia
CPT/HCPCS: 36415; 80048

== ENCOUNTER 2021-11-19 13:04 | Outpatient (CLI) | payer MEDICARE | END 2021-11-19 13:05 | disposition home or self-care (01) | LOC: MADCT 13:04 | PROVIDERS: ATTEND Family Medicine | DX: M54.2 Cervicalgia (principal); M54.6 Pain in thoracic spine; M47.814 Spondylosis without myelopathy or radiculopathy, thoracic region; M51.24 Other intervertebral disc displacement, thoracic region; M48.04 Spinal stenosis, thoracic region; M48.02 Spinal stenosis, cervical region | CPT/HCPCS: 72125; 72128 ==

== ENCOUNTER 2022-03-21 10:37 | Outpatient (CLI) | payer MEDICARE | END 2022-03-21 10:38 | disposition home or self-care (01) | LOC: MADRAD 10:37 | PROVIDERS: ATTEND Nurse Practitioner Family | DX: M47.812 Spondylosis without myelopathy or radiculopathy, cervical region (principal) | CPT/HCPCS: 72040 ==

== ENCOUNTER 2022-03-25 13:24 | Emergency (ER) | payer MEDICARE ==
[~2022-03-25 13:24] MED LIST changes: +Iopamidol 370 76% 100 ML VIAL ONE; -Iopamidol 370 76% 125 ML VIAL FS ONE; -Sodium Chloride 0.9% 100 ML BAG ONE
[2022-03-25 14:05] LABS: #Monocytes 0.4 thou/uL (0.11-0.59); #Neutrophils 4.9 thou/uL (1.40-6.50); %Basophils 0.4 % (0.0-1.0); %Eosinophils 0.8 % (0.0-10.0); %Lymphocytes 15.5 % (21.0-51.0); %Neutrophils 77.4 % (42.0-75.0); Hemoglobin 15.4 g/dL (14.0-18.0); Mean Corpuscular HGB CONC 32.7 g/dL (32.0-36.0); Mean Corpuscular Hemoglobin 32.3 pg (27.0-31.0); Mean Corpuscular Volume 98.7 fl (78.0-98.0); Mean Platelet Volume 10.4 fL (7.4-10.4); Platelet Count 146 10x3/uL (130-400); RBC Distribution Width 11.3 % (11.5-14.5); Red Blood Cell (RBC) Count 4.76 mill/uL (4.70-6.10); White Blood Cell (WBC) Count 6.3 10x3/uL (4.8-10.8)
[2022-03-25] MEDS ORDERED: Sodium Chloride 0.9% 500 ML ONE (14:16)
[2022-03-25 14:18] LABS: ALT (SGPT) 25 U/L (8-55); AST (SGOT) 30 U/L (5-34); Albumin 4.1 g/dL (3.4-4.8); Alkaline Phosphatase 67 U/L (40-110); Anion Gap 13 mmol/L (10-20); BUN (Urea Nitrogen) 14 mg/dL (8.4-25.7); Bilirubin, Total 0.6 mg/dL (0.2-1.2); Calc. Creatinine Clearance 0 mL/min (70-130); Calcium 9.3 mg/dL (7.8-10.44); Carbon Dioxide 23 mmol/L (23-31); Chloride 106 mmol/L (98-107); Estimated GFR 67; Globulin 2.8 g/dL (2.4-3.5); Glucose 95 mg/dL (83-110); Magnesium 1.9 mg/dL (1.6-2.6); Potassium 4.3 mmol/L (3.5-5.1); Protein, Total 6.9 g/dL (5.8-8.1); Sodium 138 mmol/L (136-145)
== END 2022-03-25 15:32 | disposition home or self-care (01) ==
LOC: MADERS 13:24
DX: K52.9 Noninfective gastroenteritis and colitis, unspecified (principal); E11.9 Type 2 diabetes mellitus without complications; I10 Essential (primary) hypertension; E78.5 Hyperlipidemia, unspecified
CPT/HCPCS: 36415; 74177; 80053; 83690; 83735; 85025; J7030; Q9967

== ENCOUNTER 2022-05-07 14:09 | Emergency (ER) | payer MEDICARE ==
[2022-05-07] MEDS ORDERED: Sodium Chloride 0.9% 500 ML ONE (14:41)
[2022-05-07 14:59] LABS: #Basophils 0.1 thou/uL (0.0-0.2); #Eosinphils 0.2 thou/uL (0.0-0.7); #Lymphocytes 2.1 thou/uL (1.20-3.40); #Monocytes 0.9 thou/uL (0.11-0.59); #Neutrophils 4.9 thou/uL (1.40-6.50); %Lymphocytes 25.5 % (21.0-51.0); %Monocytes 10.6 % (0.0-10.0); %Neutrophils 60.9 % (42.0-75.0); Hemoglobin 15.6 g/dL (14.0-18.0); Mean Corpuscular HGB CONC 33.1 g/dL (32.0-36.0); Mean Corpuscular Hemoglobin 32.4 pg (27.0-31.0); Mean Corpuscular Volume 97.8 fl (78.0-98.0); Mean Platelet Volume 11.3 fL (7.4-10.4); Platelet Count 145 10x3/uL (130-400); RBC Distribution Width 12.6 % (11.5-14.5); Red Blood Cell (RBC) Count 4.82 mill/uL (4.70-6.10); White Blood Cell (WBC) Count 8.1 10x3/uL (4.8-10.8)
[2022-05-07 15:17] LABS: ALT (SGPT) 28 U/L (8-55); AST (SGOT) 19 U/L (5-34); Albumin 3.6 g/dL (3.4-4.8); Alkaline Phosphatase 77 U/L (40-110); Anion Gap 12 mmol/L (10-20); BUN (Urea Nitrogen) 27 mg/dL (8.4-25.7); Bilirubin, Total 0.6 mg/dL (0.2-1.2); Calc. Creatinine Clearance 0 mL/min (70-130); Carbon Dioxide 23 mmol/L (23-31); Chloride 107 mmol/L (98-107); Estimated GFR 54; Globulin 2.6 g/dL (2.4-3.5); Glucose 92 mg/dL (83-110); Lipase 17 U/L (8-78); Magnesium 2.3 mg/dL (1.6-2.6); Potassium 4.4 mmol/L (3.5-5.1); Protein, Total 6.2 g/dL (5.8-8.1); Sodium 138 mmol/L (136-145)
== END 2022-05-07 16:42 | disposition home or self-care (01) ==
LOC: MADERS 14:09
DX: K57.92 Diverticulitis of intestine, part unspecified, without perforation or abscess without bleeding (principal); R19.7 Diarrhea, unspecified; I10 Essential (primary) hypertension; E11.9 Type 2 diabetes mellitus without complications; E78.00 Pure hypercholesterolemia, unspecified; I25.2 Old myocardial infarction; Z86.73 Personal history of transient ischemic attack (TIA), and cerebral infarction without residual deficits; G47.30 Sleep apnea, unspecified
CPT/HCPCS: 74177; 80053; 83605; 83690; 83735; 83880; 85025; 87804; 93005; J7030; Q9967

== ENCOUNTER 2022-05-10 23:58 | Emergency (ER) | payer MEDICARE | END 2022-05-11 01:09 | disposition home or self-care (01) | LOC: MADERS 23:58 | DX: L03.115 Cellulitis of right lower limb (principal); J02.8 Acute pharyngitis due to other specified organisms; E11.9 Type 2 diabetes mellitus without complications; I10 Essential (primary) hypertension; E78.5 Hyperlipidemia, unspecified | CPT/HCPCS: 87081; 87430; 99283 ==

== ENCOUNTER 2022-05-23 12:43 | Emergency (ER) | payer MEDICARE ==
[2022-05-23 13:45] LABS: #Eosinphils 0.1 thou/uL (0.0-0.7); #Lymphocytes 2.1 thou/uL (1.20-3.40); #Monocytes 0.7 thou/uL (0.11-0.59); #Neutrophils 5.5 thou/uL (1.40-6.50); %Basophils 0.6 % (0.0-1.0); %Eosinophils 0.8 % (0.0-10.0); %Lymphocytes 24.4 % (21.0-51.0); %Monocytes 8.2 % (0.0-10.0); %Neutrophils 65.9 % (42.0-75.0); Hemoglobin 14.6 g/dL (14.0-18.0); Mean Corpuscular HGB CONC 33.9 g/dL (32.0-36.0); Mean Corpuscular Hemoglobin 32.2 pg (27.0-31.0); Mean Corpuscular Volume 94.8 fl (78.0-98.0); Mean Platelet Volume 8.7 fL (7.4-10.4); Platelet Count 191 10x3/uL (130-400); Red Blood Cell (RBC) Count 4.54 mill/uL (4.70-6.10); White Blood Cell (WBC) Count 8.4 10x3/uL (4.8-10.8)
[2022-05-23 13:56] LABS: ALT (SGPT) 21 U/L (8-55); AST (SGOT) 20 U/L (5-34); Albumin 3.7 g/dL (3.4-4.8); Alkaline Phosphatase 79 U/L (40-110); Anion Gap 14 mmol/L (10-20); BUN (Urea Nitrogen) 19 mg/dL (8.4-25.7); Bilirubin, Total 0.7 mg/dL (0.2-1.2); Calc. Creatinine Clearance 0 mL/min (70-130); Calcium 8.7 mg/dL (7.8-10.44); Carbon Dioxide 20 mmol/L (23-31); Chloride 105 mmol/L (98-107); Estimated GFR 65; Globulin 2.3 g/dL (2.4-3.5); Glucose 152 mg/dL (83-110); Potassium 4.3 mmol/L (3.5-5.1); Sodium 135 mmol/L (136-145)
== END 2022-05-23 15:41 | disposition home or self-care (01) ==
LOC: MADERS 12:43
DX: J01.90 Acute sinusitis, unspecified (principal); J00 Acute nasopharyngitis [common cold]; E11.9 Type 2 diabetes mellitus without complications; E78.5 Hyperlipidemia, unspecified; I10 Essential (primary) hypertension
CPT/HCPCS: 80053; 83880; 84484; 85025; 93005

== ENCOUNTER 2022-06-05 11:55 | Outpatient (CLI) | payer MEDICARE | END 2022-06-05 11:56 | disposition home or self-care (01) | LOC: MADRAD 11:55 | PROVIDERS: ATTEND Internal Medicine | DX: J32.9 Chronic sinusitis, unspecified (principal) | CPT/HCPCS: 70220 ==

== ENCOUNTER 2022-09-24 08:20 | Emergency (ER) | payer MEDICARE ==
[2022-09-24] MEDS ORDERED: Silver Nitrate Application 1 EACH ONE (09:05)
[2022-09-24 09:08] LABS: Hemoglobin 15.5 g/dL (14.0-18.0)
== END 2022-09-24 09:25 | disposition home or self-care (01) ==
LOC: MADERS 08:20
DX: R04.0 Epistaxis (principal); E11.9 Type 2 diabetes mellitus without complications; E78.5 Hyperlipidemia, unspecified; Z79.899 Other long term (current) drug therapy; I10 Essential (primary) hypertension; Z79.84 Long term (current) use of oral hypoglycemic drugs; Z79.82 Long term (current) use of aspirin
CPT/HCPCS: 85014; 85018; 93005

== ENCOUNTER 2023-04-23 12:54 | Outpatient (CLI) | payer MEDICARE | END 2023-04-23 12:55 | disposition home or self-care (01) | LOC: MADCT 12:54 | PROVIDERS: ATTEND Surgery | DX: R51.9 Headache, unspecified (principal) | CPT/HCPCS: 70450 ==

== ENCOUNTER 2023-05-08 13:44 | Emergency (ER) | payer MEDICARE ==
[2023-05-08 14:52] LABS: Anion Gap 15 mmol/L (10-20); BUN (Urea Nitrogen) 22 mg/dL (8.4-25.7); Band 10 % (5-11); Calc. Creatinine Clearance 0 mL/min (70-130); Calcium 8.9 mg/dL (7.8-10.44); Carbon Dioxide 21 mmol/L (23-31); Chloride 109 mmol/L (98-107); Estimated GFR 47; Glucose 142 mg/dL (83-110); Hematocrit 47.5 % (42.0-52.0); Hemoglobin 15.1 g/dL (14.0-18.0); Lymphocytes 8 % (21-51); MDiff Complete? YES; Mean Corpuscular HGB CONC 31.7 g/dL (32.0-36.0); Mean Corpuscular Hemoglobin 32.9 pg (27.0-31.0); Mean Corpuscular Volume 103.7 fl (78.0-98.0); Mean Platelet Volume 10.5 fL (7.4-10.4); Monocytes 14 % (0-10); Neutrophil 65 % (42-75); Platelet Adequacy Comment Appears Adequate; Platelet Count 140 10x3/uL (130-400); Potassium 3.9 mmol/L (3.5-5.1); RBC Distribution Width 12.8 % (11.5-14.5); Red Blood Cell (RBC) Count 4.58 mill/uL (4.70-6.10); Sodium 141 mmol/L (136-145); White Blood Cell (WBC) Count 7.4 10x3/uL (4.8-10.8)
[2023-05-08 14:56] LABS: Troponin I 0.055 ng/mL (< 0.028)
[2023-05-08] MEDS ORDERED: Sodium Chloride 0.9% 1,000 ML ONE (15:27)
[2023-05-08] MEDS ORDERED: cefTRIAXone (ROCEPHIN) 1 GM VIAL ONE (15:27)
[2023-05-08] MEDS ORDERED: Sodium Chloride 0.9% 100 ML ONE (15:27)
[2023-05-08 15:42] LABS: Bilirubin Small (Negative); Blood, Urine Negative (Negative); Glucose, Urine (Dipstick) Negative (Negative); Ketone, Urine 15 mg/dL (Negative); Leukocyte Moderate (Negative); Nitrite Negative (Negative); Protein, Urine (Dipstick) Negative (Neg-Trace); Urobilinogen 0.2 mg/dL (Less than 2); pH, Urine 5.5 (5.0-9.0)
[2023-05-08 15:48] LABS: Clarity Slightly Cloudy (Clear)
[2023-05-08 15:49] LABS: Bacteria/HPF 1+ HPF (None Seen); CAUTI Indications for Culture Fever or rigors; RBC/HPF 0-3 HPF (0-3); Squamous Epithelial 0-3 HPF (0-3)
[2023-05-08 15:50] LABS: Urine Culture Reflex No No
[2023-05-08 16:07] LABS: SARS-CoV-2 NAA Rapid Test DETECTED (NotDetected)
[2023-05-08] MEDS ORDERED: Dexamethasone 10 MG/ML VIAL ONE (16:33)
== END 2023-05-08 17:35 | disposition short-term general hospital (02) ==
LOC: MADERS 13:44
DX: I21.4 Non-ST elevation (NSTEMI) myocardial infarction (principal); J81.1 Chronic pulmonary edema; N39.0 Urinary tract infection, site not specified; E11.9 Type 2 diabetes mellitus without complications; E78.5 Hyperlipidemia, unspecified; I10 Essential (primary) hypertension; Z79.899 Other long term (current) drug therapy; Z79.84 Long term (current) use of oral hypoglycemic drugs; Z79.82 Long term (current) use of aspirin
CPT/HCPCS: 71045; 80048; 81001; 83605; 84484; 85025; 87040; 87081; 87430; 87804 ×2; 93005; U0002; 36415; 96361; 96365; 96375; J0696; J1100; J3490; J7050

== ENCOUNTER 2023-07-03 22:11 | Emergency (ER) | payer MEDICARE ==
[2023-07-03 23:04] LABS: #Basophils 0.1 thou/uL (0.0-0.2); #Lymphocytes 2.7 thou/uL (1.20-3.40); #Monocytes 0.9 thou/uL (0.11-0.59); #Neutrophils 11.1 thou/uL (1.40-6.50); %Basophils 0.8 % (0.0-1.0); %Monocytes 5.8 % (0.0-10.0); %Neutrophils 75.4 % (42.0-75.0); Hematocrit 40.1 % (42.0-52.0); Hemoglobin 13.6 g/dL (14.0-18.0); Mean Corpuscular HGB CONC 33.8 g/dL (32.0-36.0); Mean Corpuscular Hemoglobin 32.5 pg (27.0-31.0); Mean Corpuscular Volume 96.2 fl (78.0-98.0); Mean Platelet Volume 9.9 fL (7.4-10.4); Platelet Count 293 10x3/uL (130-400); RBC Distribution Width 11.6 % (11.5-14.5); Red Blood Cell (RBC) Count 4.17 mill/uL (4.70-6.10); White Blood Cell (WBC) Count 14.7 10x3/uL (4.8-10.8)
[2023-07-03 23:25] LABS: ALT (SGPT) 26 U/L (8-55); AST (SGOT) 23 U/L (5-34); Albumin 3.7 g/dL (3.4-4.8); Alkaline Phosphatase 118 U/L (40-110); Anion Gap 16 mmol/L (10-20); BUN (Urea Nitrogen) 21 mg/dL (8.4-25.7); Bilirubin, Total 0.7 mg/dL (0.2-1.2); Calc. Creatinine Clearance 0 mL/min (70-130); Calcium 8.7 mg/dL (7.8-10.44); Carbon Dioxide 27 mmol/L (23-31); Chloride 98 mmol/L (98-107); Estimated GFR 54; Globulin 2.3 g/dL (2.4-3.5); Glucose 148 mg/dL (83-110); Lipase 11 U/L (8-78); Sodium 137 mmol/L (136-145); Troponin I 0.014 ng/mL (< 0.028)
[2023-07-03 23:26] LABS: Bilirubin Small (Negative); Blood, Urine Negative (Negative); Glucose, Urine (Dipstick) Negative (Negative); Ketone, Urine Negative (Negative); Leukocyte Moderate (Negative); Nitrite Negative (Negative); Protein, Urine (Dipstick) Trace mg/dL (Neg-Trace); Specific Gravity, Urine 1.015 (1.005-1.030); pH, Urine 8.5 (5.0-9.0)
[2023-07-03] MEDS ORDERED: Sodium Chloride 0.9% 1,000 ML ONE (23:27)
[2023-07-03 23:33] LABS: Bacteria/HPF Rare-Few HPF (None Seen); CAUTI Indications for Culture Pelvic or flank pain; Clarity Hazy (Clear); RBC/HPF 0-3 HPF (0-3); Squamous Epithelial 0-3 HPF (0-3)
[2023-07-03 23:35] LABS: Urine Culture Reflex Yes Yes
[2023-07-03] MEDS ORDERED: cefTRIAXone (ROCEPHIN) 1 GM VIAL ONE (23:54)
[2023-07-04] MEDS ORDERED: Sodium Chloride 0.9% 1,000 ML ONE (03:25)
[2023-07-04] MEDS ORDERED: Piperacillin/Tazobactam 3.375 GM VIAL ONE (03:25)
== END 2023-07-04 04:22 | disposition short-term general hospital (02) ==
LOC: MADERS 22:11
DX: N39.0 Urinary tract infection, site not specified (principal); K63.1 Perforation of intestine (nontraumatic); E11.9 Type 2 diabetes mellitus without complications; I10 Essential (primary) hypertension; I25.2 Old myocardial infarction; Z86.73 Personal history of transient ischemic attack (TIA), and cerebral infarction without residual deficits; Z79.82 Long term (current) use of aspirin; Z79.899 Other long term (current) drug therapy
CPT/HCPCS: 74177; 80053; 81001; 83605; 83690; 84484; 85025; 87040; 87086; 93005; 96365; 96367; J0696; J2543; J7050; Q9967

== ENCOUNTER 2023-08-14 12:50 | Outpatient (CLI) | payer MEDICARE | END 2023-08-14 12:51 | disposition home or self-care (01) | LOC: MADCT 12:50 | PROVIDERS: ATTEND Internal Medicine Gastroenterology | DX: K63.1 Perforation of intestine (nontraumatic) (principal); A49.8 Other bacterial infections of unspecified site; K52.9 Noninfective gastroenteritis and colitis, unspecified; R93.5 Abnormal findings on diagnostic imaging of other abdominal regions, including retroperitoneum; J90 Pleural effusion, not elsewhere classified; J92.9 Pleural plaque without asbestos; K63.89 Other specified diseases of intestine | CPT/HCPCS: 74177 ==

== ENCOUNTER 2023-11-25 08:59 | Emergency (ER) | payer MEDICARE ==
[2023-11-25 10:05] LABS: Bilirubin Negative (Negative); Blood, Urine Negative (Negative); Clarity Clear (Clear); Glucose, Urine (Dipstick) Negative (Negative); Ketone, Urine Negative (Negative); Leukocyte Trace (Negative); Nitrite Negative (Negative); Protein, Urine (Dipstick) Negative (Neg-Trace); Urobilinogen 0.2 mg/dL (Less than 2); pH, Urine 6.5 (5.0-9.0)
[2023-11-25 10:15] LABS: Bacteria/HPF Rare-Few HPF (None Seen); CAUTI Indications for Culture Dysuria,urgency,freq; RBC/HPF 0-3 HPF (0-3); Squamous Epithelial 0-3 HPF (0-3); WBC/HPF 0-3 HPF (0-3)
[2023-11-25 10:16] LABS: Urine Culture Reflex No No
[2023-11-25 10:29] LABS: #Basophils 0.1 thou/uL (0.0-0.2); #Eosinphils 0.1 thou/uL (0.0-0.7); #Lymphocytes 2.2 thou/uL (1.20-3.40); #Monocytes 0.6 thou/uL (0.11-0.59); #Neutrophils 4.1 thou/uL (1.40-6.50); %Eosinophils 1.2 % (0.0-10.0); %Lymphocytes 31.5 % (21.0-51.0); %Monocytes 8.2 % (0.0-10.0); %Neutrophils 58.1 % (42.0-75.0); Hematocrit 57.8 % (42.0-52.0); Hemoglobin 17.3 g/dL (14.0-18.0); Mean Corpuscular Hemoglobin 28.8 pg (27.0-31.0); Platelet Count 172 10x3/uL (130-400); Red Blood Cell (RBC) Count 6.02 mill/uL (4.70-6.10); White Blood Cell (WBC) Count 7.1 10x3/uL (4.8-10.8)
[2023-11-25 10:39] LABS: ALT (SGPT) 15 U/L (8-55); AST (SGOT) 19 U/L (5-34); Albumin 4.1 g/dL (3.4-4.8); Alkaline Phosphatase 79 U/L (40-110); Anion Gap 15 mmol/L (10-20); BUN (Urea Nitrogen) 18 mg/dL (8.4-25.7); Bilirubin, Total 0.5 mg/dL (0.2-1.2); Calc. Creatinine Clearance 0 mL/min (70-130); Calcium 9.5 mg/dL (7.8-10.44); Carbon Dioxide 24 mmol/L (23-31); Chloride 105 mmol/L (98-107); Estimated GFR 61; Globulin 3.2 g/dL (2.4-3.5); Glucose 123 mg/dL (83-110); Magnesium 2.2 mg/dL (1.6-2.6); Potassium 4.2 mmol/L (3.5-5.1); Protein, Total 7.3 g/dL (5.8-8.1); Sodium 140 mmol/L (136-145)
[2023-11-25] MEDS ORDERED: HYDROcodone/Acetaminophen 5/325 mg Tablet ONE (11:44)
== END 2023-11-25 11:51 | disposition home or self-care (01) ==
LOC: MADERS 08:59
DX: R51.9 Headache, unspecified (principal); M54.12 Radiculopathy, cervical region; I10 Essential (primary) hypertension; E78.5 Hyperlipidemia, unspecified; E11.9 Type 2 diabetes mellitus without complications; Z79.84 Long term (current) use of oral hypoglycemic drugs; Z79.899 Other long term (current) drug therapy
CPT/HCPCS: 70450; 80053; 81001; 83735; 85025

== ENCOUNTER 2024-03-30 15:22 | Emergency (ER) | payer MEDICARE ==
[2024-03-30] MEDS ORDERED: Bacitracin 1 PK ONE (15:34)
[2024-03-30] MEDS ORDERED: Boostrix 0.5 ML (Tdap) VIAL (>/=7 yrs of age) ONE (15:34)
[2024-03-30] MEDS ORDERED: Lidocaine 1% PF 5 ML VIAL ONE (15:34)
== END 2024-03-30 16:00 | disposition home or self-care (01) ==
LOC: MADERS 15:22
DX: S91.011A Laceration without foreign body, right ankle, initial encounter (principal); E11.9 Type 2 diabetes mellitus without complications; I10 Essential (primary) hypertension; I25.2 Old myocardial infarction; Z55.6 Problems related to health literacy; Z95.1 Presence of aortocoronary bypass graft; Z23 Encounter for immunization; W01.10XA Fall on same level from slipping, tripping and stumbling with subsequent striking against unspecified object, initial encounter
CPT/HCPCS: 12002; 90471; 90715

== ENCOUNTER 2025-01-11 10:44 | Outpatient (CLI) | payer MEDICARE ==
[2025-01-11 11:04] LABS: #Basophils 0.1 thou/uL (0.0-0.2); #Eosinophils 0.1 thou/uL (0.0-0.7); #Lymphocytes 2.6 thou/uL (1.20-3.40); #Monocytes 0.7 thou/uL (0.11-0.59); #Neutrophils 3.6 thou/uL (1.40-6.50); %Basophils 1.8 % (0.0-1.0); %Eosinophils 0.7 % (0.0-10.0); %Lymphocytes 36.6 % (21.0-51.0); %Monocytes 10.4 % (0.0-10.0); %Neutrophils 50.6 % (42.0-75.0); Hematocrit 45.8 % (42.0-52.0); Hemoglobin 15.0 g/dL (14.0-18.0); Mean Corpuscular Hemoglobin 31.3 pg (27.0-31.0); Mean Corpuscular Volume 95.7 fl (78.0-98.0); Platelet Count 216 10x3/uL (130-400); Red Blood Cell (RBC) Count 4.79 mill/uL (4.70-6.10); White Blood Cell (WBC) Count 7.1 10x3/uL (4.8-10.8)
[2025-01-11 11:15] LABS: Alkaline Phosphatase 74 U/L (40-110); Anion Gap 16 mmol/L (10-20); BUN (Urea Nitrogen) 13 mg/dL (8.4-25.7); Calcium 8.9 mg/dL (7.8-10.44); Carbon Dioxide 23 mmol/L (23-31); Chloride 103 mmol/L (98-107); Glucose 100 mg/dL (83-110); Potassium 4.2 mmol/L (3.5-5.1); Sodium 138 mmol/L (136-145)
[2025-01-11 12:09] LABS: ALT (SGPT) 15 U/L (Less than 45); AST (SGOT) 24 U/L (11-34); Albumin 4.0 g/dL (3.1-4.5); Bilirubin, Total 0.6 mg/dL (0.3-1.2); Calc. Creatinine Clearance 0 mL/min (70-130); Globulin 2.6 g/dL (2.4-3.5)
[2025-01-11 17:03] LABS: Albumin (w/Testosterone Panel) 3.8 g/dL
[2025-01-11 17:33] LABS: Testosterone, Free 130.9 pg/mL (47-244)
== END 2025-01-11 10:45 | disposition home or self-care (01) ==
LOC: MADLAB 10:44
PROVIDERS: ATTEND Internal Medicine Endocrinology, Diabetes & Metabolism
DX: E29.1 Testicular hypofunction (principal); D75.1 Secondary polycythemia
CPT/HCPCS: 36415; 80053; 84270; 84403; 85025

== ENCOUNTER 2025-04-02 12:41 | Emergency (ER) | payer MEDICARE ==
[2025-04-02] MEDS ORDERED: HYDROcodone/Acetaminophen 5/325 mg Tablet ONE (13:29)
== END 2025-04-02 14:37 | disposition home or self-care (01) ==
LOC: MADERS 12:41
DX: J40 Bronchitis, not specified as acute or chronic (principal); E11.9 Type 2 diabetes mellitus without complications; I10 Essential (primary) hypertension; E78.5 Hyperlipidemia, unspecified; I25.2 Old myocardial infarction; Z79.82 Long term (current) use of aspirin; Z79.899 Other long term (current) drug therapy
CPT/HCPCS: 87081; 87428; 87430; 99283

== ENCOUNTER 2025-05-07 16:28 | Emergency (ER) | payer MEDICARE ==
[2025-05-07 17:26] LABS: #Basophils 0.1 thou/uL (0.0-0.2); #Eosinophils 0.1 thou/uL (0.0-0.7); #Lymphocytes 2.2 thou/uL (1.20-3.40); #Monocytes 0.7 thou/uL (0.11-0.59); #Neutrophils 5.3 thou/uL (1.40-6.50); %Basophils 1.5 % (0.0-1.0); %Eosinophils 1.3 % (0.0-10.0); %Lymphocytes 26.4 % (21.0-51.0); %Monocytes 7.8 % (0.0-10.0); %Neutrophils 63.0 % (42.0-75.0); Hematocrit 44.6 % (42.0-52.0); Hemoglobin 14.6 g/dL (14.0-18.0); Mean Corpuscular Hemoglobin 32.5 pg (27.0-31.0); Mean Corpuscular Volume 99.2 fl (78.0-98.0); Platelet Count 125 10x3/uL (130-400); Red Blood Cell (RBC) Count 4.50 mill/uL (4.70-6.10); White Blood Cell (WBC) Count 8.3 10x3/uL (4.8-10.8)
[2025-05-07 17:40] LABS: ALT (SGPT) 31 U/L (Less than 45); AST (SGOT) 29 U/L (11-34); Albumin 3.7 g/dL (3.1-4.5); Alkaline Phosphatase 82 U/L (40-110); Anion Gap 17 mmol/L (10-20); BUN (Urea Nitrogen) 20 mg/dL (8.4-25.7); Bilirubin, Total 0.3 mg/dL (0.3-1.2); Calc. Creatinine Clearance 0 mL/min (70-130); Calcium 8.5 mg/dL (7.8-10.44); Carbon Dioxide 20 mmol/L (23-31); Chloride 95 mmol/L (98-107); Globulin 2.8 g/dL (2.4-3.5); Glucose 112 mg/dL (83-110); Magnesium 2.0 mg/dL (1.6-2.6); Potassium 4.3 mmol/L (3.5-5.1); Sodium 128 mmol/L (136-145)
[2025-05-07 17:41] LABS: Troponin I 0.013 ng/mL (< 0.028)
[2025-05-07 17:57] LABS: Glucose, Urine (Dipstick) Negative (Negative); Leukocyte Small (Negative); Protein, Urine (Dipstick) Negative (Neg-Trace); Specific Gravity, Urine 1.015 (1.005-1.030)
[2025-05-07 17:58] LABS: CAUTI Indications for Culture Dysuria,urgency,freq; RBC/HPF 0-3 HPF (0-3)
[2025-05-07 17:59] LABS: Bacteria/HPF Rare-Few HPF (None Seen)
[2025-05-07 18:00] LABS: Urine Culture Reflex No No
== END 2025-05-07 19:15 | disposition home or self-care (01) ==
LOC: MADERS 16:28
DX: I20.0 Unstable angina (principal); I10 Essential (primary) hypertension; I25.2 Old myocardial infarction; E11.9 Type 2 diabetes mellitus without complications; Z86.73 Personal history of transient ischemic attack (TIA), and cerebral infarction without residual deficits; Z79.899 Other long term (current) drug therapy; Z79.82 Long term (current) use of aspirin; Z79.84 Long term (current) use of oral hypoglycemic drugs; Z95.5 Presence of coronary angioplasty implant and graft; Z53.29 Procedure and treatment not carried out because of patient's decision for other reasons
CPT/HCPCS: 71045; 80053; 81001; 83735; 83880; 84484; 85025; 85379; 93005